=== PATIENT | male | born 1975 | race Two or more races ===

== ENCOUNTER 2024-10-05 10:19 | Inpatient (IN) | payer MEDICAID, SELFPAY ==
[2024-10-05] VITALS (13 sets, daily range): BP systolic 134–223; BP diastolic 76–124; PULSE 82–98; RESP 14–20; TEMP 36.8–37.2; O2SAT 97–100; BMI 30.7
--- NOTE | 2024-10-05 10:55 | XR_ITS ---
Examination: AP chest single view Technique one AP portable upright chest single view Exam date and time: October 05, 2024 1102 hrs. Indications: Chest pain this morning Findings: Mild enlargement cardiac contour Mild vascular congestion. No lobar pneumonia or pulmonary edema Impression: Mild vascular congestion
--- NOTE | 2024-10-05 10:55 | EKG_ITS ---
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
--- NOTE | 2024-10-05 11:04 | PD.EDABDPN ---
ED Abdominal Pain RME/HPI General Chief Complaint: Abdominal Pain Stated complaint: Abdominal pain, dizziness, and feet swelling Time seen by provider: 10/05/24 10:35 Arrival date/time: 10/05/24 10:19 RME / HPI RME / HPI narrative: 49 year old male with history of hypertension, diabetes, and gastritis presents to the ED for evaluation of abdominal pain x4 days. He describes the pain as a constant, aching sensation located primarily to the epigastric region, rated 9/10 in severity. Associated with nausea, vomiting, and decreased appetite. He reports that the symptoms worsen with oral intake, including both food and water. He has attempted OTC medications without relief. Patient additionally complains of dizziness, mild chest pain, and bilateral lower extremity swelling. He denies fever, chills, or sweating. Denies cough, shortness of breath. Denies diarrhea, constipation. Denies dysuria, urinary frequency and urgency. Related Data Allergies Allergy/AdvReac Type Severity Reaction Status Date / Time No Known Allergies Allergy Verified 10/05/24 10:23 Review of Systems Review of Systems Narrative Review of Systems: GEN: No fever, no chills, no weight loss, +dizzy EYES: No discharge, no visual changes, no pain HEENT: No ear pain, no congestion, no sore throat PULM: No shortness of breath, no cough, no congestion CV: + chest pain, no dyspnea on exertion, no palpitations GI: +nausea, +vomiting, +decreased appetite, no diarrhea, +pain, no constipation : No frequency, no urgency, no dysuria MUSC/SKEL: No joint pain, no back pain SKIN: No rash NEURO: No weakness, no headache Past Medical History Social History SMOKING STATUS: Never smoker ED Exam Narrative Physical exam: GENERAL APPEARANCE: alert and oriented x 4, well-developed, well-nourished, grimacing HEENT: Normocephalic, atraumatic; pupils equal, round, reactive to light; EOMI; mucous membranes pink, moist; oropharynx clear NECK: Supple LUNGS: CTABL; no wheezes, no rales, no rhonchi HEART: Regular rate, regular rhythm; normal S1, S2; no murmurs ABDOMEN: non distended; normal BS; soft, no tenderness, no guarding, no rebound; no masses, no organomegaly, no hernia BACK: no CVA tenderness EXTREMITIES: atraumatic; trace pitting edema BLE NEUROLOGIC: awake; alert and oriented x4; cranial nerves II-XII grossly intact; no focal sensory or motor deficits PSYCHIATRIC: appropriate mood and affect SKIN: warm, dry, normal color; no rashes Course Quality Measures none Orders Category Date Time Status Bedside Blood Glucose Q1HR Care 10/05/24 11:02 Active Plumbing And Heating Mechanic NOW Care 10/05/24 10:55 Active EKG (ED ONLY) *Do not use* NOW Care 10/05/24 10:55 Completed Strict Intake and Output Q1H Care 10/05/24 15:15 Ordered Strict Intake and Output Q1H Care 10/05/24 16:15 Ordered Strict Intake and Output Q1H Care 10/05/24 17:15 Ordered Strict Intake and Output Q1H Care 10/05/24 18:15 Ordered Strict Intake and Output Q1H Care 10/05/24 19:15 Ordered Strict Intake and Output Q1H Care 10/05/24 20:15 Ordered Strict Intake and Output Q1H Care 10/05/24 21:15 Ordered Strict Intake and Output Q1H Care 10/05/24 22:15 Ordered Strict Intake and Output Q1H Care 10/05/24 23:[address] abdomen pelvis wo con Stat Exams 10/05/24 15:03 Completed EKG (ED Only) Stat Exams 10/05/24 10:55 Draft XR chest 1V portable Stat Exams 10/05/24 10:55 Completed ABG [Arterial Blood Gas] Stat Lab 10/05/24 12:16 Completed B-Type Natriuretic Peptide Stat Lab 10/05/24 11:00 Completed Beta Hydroxybutyrate Stat Lab 10/05/24 11:00 Completed Blood Culture (Lab) Stat Lab 10/05/24 11:45 Received CBC Stat Lab 10/05/24 11:30 Completed Comprehensive Metabolic Panel Stat Lab 10/05/24 11:00 Completed Lactate (Lactic Acid) Stat Lab 10/05/24 11:00 Completed Lipase Stat Lab 10/05/24 11:00 Completed Magnesium Stat Lab 10/05/24 11:00 Completed Partial Thromboplastin Time Stat Lab 10/05/24 11:00 Completed Procalcitonin Stat Lab 10/05/24 11:00 Completed Prothrombin Time with INR Stat Lab 10/05/24 11:00 Completed Troponin I Stat Lab 10/05/24 11:00 Completed Urinalysis Stat Lab 10/05/24 11:01 Ordered Urine Culture Stat Lab 10/05/24 11:01 Ordered Aspirin Chew Med 10/05/24 12:14 Discontinued 324 mg PO X1 ONE Labetalol IV [Trandate IV] Med 10/05/24 10:55 Discontinued 20 mg IVP X1 ONE Nicardipine/Ns 20Mg Ivpb [Cardene Ivpb] Med 10/05/24 14:02 Discontinued 20 mg in 200 ml IV 5 mg/hr Nitroglycerin Oint 2% [Nitro-paste Oint 2%] Med 10/05/24 12:14 Discontinued 1 inch TOP X1 ONE Ondansetron Inj [Zofran Inj] Med 10/05/24 11:01 Discontinued 4 mg IVP X1 ONE Sodium Chloride 0.9% 1000 ml [Ns] 1,000 ml Med 10/05/24 11:31 Discontinued IV 999 mls/hr Sodium Chloride 0.9% 1000 ml [Ns] 1,000 ml Med 10/05/24 15:01 Discontinued IV 999 mls/hr amLODIPine BESYLATE [Norvasc] Med 10/05/24 14:42 Discontinued 10 mg PO X1 ONE carVEDILOL [Coreg] Med 10/05/24 14:41 Discontinued 12.5 mg PO X1 ONE hydrALAZINE INJ [Apresoline Inj] Med 10/05/24 14:41 Discontinued 10 mg IVP X1 ONE hydrALAZINE INJ [Apresoline Inj] Med 10/05/24 16:17 Discontinued 10 mg IVP X1 ONE Vital Signs Vital signs: Vital Signs Temperature 98.7 F 10/05/24 10:47 Pulse Rate 98 10/05/24 10:47 Respiratory Rate 20 10/05/24 10:47 Blood Pressure 219/122 H 10/05/24 10:47 Pulse Oximetry (%) 100 10/05/24 10:47 Oxygen Delivery Method Room Air 10/05/24 10:47 Pulse ox is 100% on room air which is adequate. Abdominal Pain MDM MDM Narrative MDM Narrative:: I, Haley Dumont, am scribing for and in the presence of Dr. Sánchez. 1433: I spoke with internet architect Dr. Beltran as noted below. Patients blood pressure is 211/114. Will order dose of Hydralazine and Coreg. 1600: Blood pressure 187/101. Pt has received Hydralazine, Coreg, and Amlodipine. 1630: Blood pressure 158/91. Patient data External records reviewed:: None Clinical information provided by:: patient Social determinants that could affect healthcare access:: none Patient has the following chronic illnesses:: hypertension, diabetes, and gastritis How is presenting disease/condition affected by chronic disease/condition?: exacerbated by Evaluation data The following diagnostics were reviewed and interpreted by me:: lab results, radiology exam(s) and EKG tracing(s) (EKG @ 11:05 AM. Sinus rhythm, rate 96, no STEMI. ) Lab and/or radiology exams considered but not ordered:: None Interpretation Summary: Ordering Physician: Alma Sánchez MD Date of Service: 10/05/24 Procedure(s): XR chest 1V portable Accession Number(s): [id number] cc: Michael Hernandez MD; Alma Sánchez MD~ Examination: AP chest single view Technique one AP portable upright chest single view Exam date and time: October 05, 2024 1102 hrs. Indications: Chest pain this morning Findings: Mild enlargement cardiac contour Mild vascular congestion. No lobar pneumonia or pulmonary edema Impression: Mild vascular congestion Dictated By: Michael Hernandez MD Signed By: <Electronically signed by Michael Hernandez MD in OV> 10/05/24 1140 Ordering Physician: Alma Sánchez MD Date of Service: 10/05/24 Procedure(s): CT abdomen pelvis wo con Accession Number(s): [id number] cc: Michael Hernandez MD; NO PRIMARY/FAMILY,PHYSICIAN; Alma Sánchez MD~ Examination: CT abdomen and pelvis without contrast. Coronal 3-D reconstructions. Sagittal 2-D reconstructions. Date and time of exam:October 05, 2024, 1532 hrs. Indications: Abdominal pain beginning 4 days ago CTDI: vol (mGy): 6.6 DLP: (mGycm): 381 Technique: Axial images of the abdomen have been obtained, 3 mm slice thickness Intravenous contrast material has not been administered. Low dose protocols were performed. One or more of the following dose reduction techniques were used; automated exposure control, adjustment of the mA and/or KV according to patient size, use of iterative reconstruction technique. Findings: Mild to moderate enlargement cardiac contour Small pericardial effusion Cirrhosis, liver is nodular in contour with diffuse fatty infiltration No gallstones No pancreatic or adrenal mass Mild ascites No renal or ureteral calculi, no hydronephrosis Aorta normal size No bowel obstruction Normal appendix No diverticulitis Minimal thickening of urinary bladder wall Mild prostatomegaly Impression: Cirrhosis, fatty infiltration Mild ascites Normal appendix No bowel obstruction Dictated By: Michael Hernandez MD Signed By: <Electronically signed by Michael Hernandez MD in OV> 10/05/24 1603 Medications / Prescriptions Medications or Prescriptions considered but not ordered:: None Medication administrations:: Medication Administration History Acetaminophen (Acetaminophen 325 Mg Tablet) 650 mg PO Q6H PRN PRN Reason: Pain 1-3 and/or Fever >100.1 Stop: 11/04/24 16:59 Dextrose (Dextrose 50%-Water Inj 50 Ml Syringe) 25 ml IV Q15MIN PRN PRN Reason: BG 50-70 responsive npo pt Stop: 11/04/24 17:17 Dextrose (Dextrose 50%-Water Inj 50 Ml Syringe) 50 ml IV Q15MIN PRN PRN Reason: BG <50 OR BG <70 & pt unresponsive Stop: 11/04/24 17:17 Glucagon (Glucagon Inj 1 Mg Vial) 1 mg IM Q15MIN PRN PRN Reason: BG <70, and no IV access Magnesium Sulfate (Magnesium Sulfate Ivpb) 4 gm in 50 mls @ 12.5 mls/hr IV X1 ONE Stop: 10/05/24 21:04 Insulin Human Lispro (Insulin Lispro (Admelog) 1 Unit/0.01 Ml Unit) 0 unit SC Q6HR MARNI; Protocol Stop: 11/04/24 17:29 Labetalol HCl (Labetalol Inj 5 Mg/Ml Vial 20 Ml) 20 mg IVP Q2H PRN PRN Reason: BP >200/105 and HR > 70 Stop: 11/04/24 17:22 Ondansetron HCl (Ondansetron Inj 2 Mg/Ml Inj 2 Ml) 4 mg IVP Q6H PRN; Protocol PRN Reason: NAUSEA OR VOMITING Stop: 11/04/24 16:59 Oxycodone/Acetaminophen (Oxycodone/Apap 5/325 Tablet) 1 tab PO Q6H PRN PRN Reason: PAIN SCALE 4-6 (Moderate Stop: 10/10/24 16:59 Sennosides (Senna Tablet) 1 tab PO QDAY PRN; Protocol PRN Reason: constipation Stop: 11/04/24 16:59 Discontinued Medications Amlodipine Besylate (Amlodipine Besylate 5 Mg Tablet) 10 mg PO X1 ONE Stop: 10/05/24 14:43 Last Admin: 10/05/24 15:11 Dose: 10 mg Documented By: MARYJO Aspirin (Aspirin 81 Mg Chew) 324 mg PO X1 ONE Stop: 10/05/24 12:15 Last Admin: 10/05/24 13:46 Dose: 324 mg Documented By: MARYJO Carvedilol (Carvedilol 12.5 Mg Tablet) 12.5 mg PO X1 ONE Stop: 10/05/24 14:42 Last Admin: 10/05/24 15:11 Dose: 12.5 mg Documented By: MARYJO Hydralazine HCl (Hydralazine Inj 20 Mg/Ml Vial) 10 mg IVP X1 ONE Stop: 10/05/24 14:42 Last Admin: 10/05/24 15:08 Dose: 10 mg Documented By: MARYJO Hydralazine HCl (Hydralazine Inj 20 Mg/Ml Vial) 10 mg IVP X1 ONE Stop: 10/05/24 16:18 Sodium Chloride (Ns) 1,000 mls @ 999 mls/hr IV .Q1H1M ONE Stop: 10/05/24 12:31 Last Admin: 10/05/24 13:51 Dose: 999 mls/hr Documented By: MARYJO Nicardipine/Sodium Chloride (Cardene Ivpb) 20 mg in 200 mls @ 50 mls/hr IV .Q4H PRN; Protocol PRN Reason: PER PROTOCOL Stop: 11/04/24 14:01 Sodium Chloride (Ns) 1,000 mls @ 999 mls/hr IV .Q1H1M ONE Stop: 10/05/24 16:01 Labetalol HCl (Labetalol Inj 5 Mg/Ml Vial 20 Ml) 20 mg IVP X1 ONE Stop: 10/05/24 10:56 Last Admin: 10/05/24 12:00 Dose: 20 mg Documented By: APRIL Labetalol HCl (Labetalol Inj 5 Mg/Ml Vial 20 Ml) 20 mg IVP Q2H PRN PRN Reason: Systolic >200 and HR > 70 Stop: 11/04/24 17:22 Nitroglycerin (Nitroglycerin Oint 2% 1 Inch Packet) 1 inch TOP X1 ONE Stop: 10/05/24 12:15 Last Admin: 10/05/24 13:51 Dose: 1 inch Documented By: MARYJO Ondansetron HCl (Ondansetron Inj 2 Mg/Ml Inj 2 Ml) 4 mg IVP X1 ONE; Protocol Stop: 10/05/24 11:02 Last Admin: 10/05/24 11:59 Dose: 4 mg Documented By: APRIL See above Consultations Consultation(s) initiated? (list below): Yes Consultation #1 (Physician, Specialty, Details): I spoke with internet architect Dr. Beltran. Discussed patients PMHx, HPI, ED course, exam findings, labs, EKG results. Recommends starting a drip and admitting the patient to the ICU if they appear symptomatic. If the patient is clinically stable, it is appropriate to administer Amlodipine, Coreg, and Hydralazine as needed. Time: 14:33 Consultation #2 (Physician, Specialty, Details): I spoke with resident Dr. Arce working with Dr. Nowak. Discussed patients PMHx, HPI, ED course, exam findings, labs, and radiology results. The hospitalist agree to accept the patient for admission. Time: 16:18 Diagnosis Differential diagnosis abdominal pain: abdominal pain and other (gastritis, hypertensive urgency, hypertensive emergency ) Most likely diagnosis given after review of the tests above:: Hypertensive emergency Vomiting Admission Indicated Admission indicated?: indicated Admission Request Was there a request for admission?: Yes Admission Attestation Admission request attestation: Discussed case with [] from Hospitalist service regarding admission. Discussed patients ED course, exam findings, labs, and radiology results. The Hospitalist [agrees,declines] to accept the patient for admission. Disposition Plan Disposition Plan: Admit Critical Care Time Critical Care Time Critical Care Time: Yes Total Critical Care Time (min.): 45 Attestation: The high probability of sudden, clinically significant deterioration in the patient's condition required the highest level of my preparedness to intervene urgently. The services I provided to this patient were to treat and/or prevent clinically significant deterioration. Services included the following: chart data review, reviewing nursing notes and/or old charts, documentation time, cassandra consultant collaboration regarding findings and treatment options, medication orders and management, direct patient care, vital sign assessments and ordering, interpreting and reviewing diagnostic studies and lab tests. Aggregate critical care time includes only time during which I was engaged in work directly related to the patient's care, as described above, whether at bedside or elsewhere in the Emergency Department. It did not include time spent performing other reported procedures or the services of residents, students, nurses or physician assistants. Discharge Plan Plan Patient Disposition: Admit Acute Care w/in Hospital Problem List Clinical Impression: Hypertensive emergency, Vomiting
[2024-10-05 11:37] LABS: Beta Hydroxybutyrate 0.9 mmol/L (<0.6)
[2024-10-05 11:39] LABS: Basophils % (Auto) 0 % (0-2.5); Eosinophils % (Auto) 0 % (0-10); Hematocrit 27.8 % (41.0-53.0); Hemoglobin 9.8 g/dL (13.5-16.0); Immature Granulocytes % (Auto) 0 % (0-0); Immature Granulocytes Auto 0.04 Thou/mm3 (0.00-0.00); Lymphocytes # (Auto) 0.7 Thou/mm3 (1.0-4.8); Lymphocytes % (Auto) 7 % (10-50); Mean Corpuscular HGB Conc 35.3 g/dl (31.0-37.0); Mean Corpuscular Hemoglobin 29.1 pg (25.0-35.0); Mean Corpuscular Volume 83 fL (80-100); Monocytes # (Auto) 0.6 Thou/mm3 (0.0-0.8); Monocytes % (Auto) 6 % (0-12); Neutrophils # (Auto) 8.5 Thou/mm3 (1.8-7.7); Neutrophils % (Auto) 86 % (37-80); Nucleated Red Blood Cell % 0 /100 WBC (0); Platelet Count 304 Thou/mm3 (140-440); RDW Standard Deviation 39.8 fL (35.1-43.9); Red Blood Count 3.37 Miln/mm3 (4.50-5.90); White Blood Count 9.9 Thou/mm3 (3.8-10.6)
[2024-10-05] MEDS: ONDANSETRON INJ 2 MG/ML INJ 2 ML 4 MG IVP ×2 (11:59→19:30)
[2024-10-05] MEDS: LABETALOL INJ 5 MG/ML VIAL 20 ML 20 MG IVP (12:00)
[2024-10-05 12:09] LABS: Alanine Aminotransferase < 7 U/L (10-49); Albumin, Serum 3.1 gm/dL (3.5-5.0); Albumin/Globulin Ratio 1.5 (1.2-2.2); Alkaline Phosphatase 97 U/L (46-116); Anion Gap 17 (7-16); Aspartate Amino Transferase < 10 U/L (0-34); BUN/Creatinine Ratio 8 Ratio (12-20); Bilirubin,Total 0.4 mg/dL (0.3-1.2); Blood Urea Nitrogen 79 mg/dL (9-23); Calcium 7.3 mg/dL (8.3-10.6); Carbon Dioxide 16.2 mMol/L (20.0-31.0); Chloride 106 mMol/L (98-107); Creatinine (Component) 9.4 mg/dL (0.6-1.3); Estimated Creatinine Clearance 8.4 mL/min (>60); Globulin 2.1 gm/dL (2.3-3.5); Glucose 165 mg/dL (74-106); Lipase 51 U/L (12-53); Magnesium 1.8 mg/dL (1.6-2.6); Osmolality,Calculated 305 (275-295); Potassium 4.4 mMol/L (3.4-5.1); Procalcitonin 0.09 ng/ml (0.0-0.49); Sodium 139 mMol/L (136-145); Total Protein 5.2 gm/dL (5.7-8.2); eGFR 6 See Note
[2024-10-05 12:10] LABS: Troponin I 0.352 ng/mL (0.0-0.045)
[2024-10-05 12:16] LABS: B-Type Natriuretic Peptide 796 pg/mL (0-100)
[2024-10-05 12:19] LABS: Base Excess -9 (-3-3); HCO3 16 mEq/L (20-26); Inspired Oxygen, FIO2 21 %; O2 Saturation 99 % (91-98); PCO2 31 mmHg (32.0-48.0); PO2 101 mmHg (83-108); pH, Arterial 7.32 (7.35-7.45)
[2024-10-05 12:20] LABS: Allen Test Performed/OK; Puncture Site Right Radial
[2024-10-05 12:22] LABS: Prothrombin Time 10.7 Seconds (9.0-12.2)
[2024-10-05] MEDS: ASPIRIN 81 MG CHEW 324 MG PO (13:46)
[2024-10-05] MEDS: SODIUM CHLORIDE 0.9% 1000 ML 1,000 ML 999 ML IV (13:51)
[2024-10-05] MEDS: NITROGLYCERIN OINT 2% 1 INCH PACKET TOP (13:51)
--- NOTE | 2024-10-05 15:03 | XR_ITS ---
Examination: CT abdomen and pelvis without contrast. Coronal 3-D reconstructions. Sagittal 2-D reconstructions. Date and time of exam:October 05, 2024, 1532 hrs. Indications: Abdominal pain beginning 4 days ago CTDI: vol (mGy): 6.6 DLP: (mGycm): 381 Technique: Axial images of the abdomen have been obtained, 3 mm slice thickness Intravenous contrast material has not been administered. Low dose protocols were performed. One or more of the following dose reduction techniques were used; automated exposure control, adjustment of the mA and/or KV according to patient size, use of iterative reconstruction technique. Findings: Mild to moderate enlargement cardiac contour Small pericardial effusion Cirrhosis, liver is nodular in contour with diffuse fatty infiltration No gallstones No pancreatic or adrenal mass Mild ascites No renal or ureteral calculi, no hydronephrosis Aorta normal size No bowel obstruction Normal appendix No diverticulitis Minimal thickening of urinary bladder wall Mild prostatomegaly Impression: Cirrhosis, fatty infiltration Mild ascites Normal appendix No bowel obstruction
[2024-10-05] MEDS: hydrALAZINE INJ 20 MG/ML VIAL 10 MG IVP (15:08)
[2024-10-05] MEDS: carVEDILOL 12.5 MG TABLET PO (15:11)
[2024-10-05] MEDS: amLODIPine BESYLATE 5 MG TABLET 10 MG PO (15:11)
--- NOTE | 2024-10-05 17:00 | XR_ITS ---
Examination: CT brain head without contrast. 2-D sagittal coronal reconstructions Date and time of exam:October 05, 2024 at 1812 hours INDICATIONS: Hypertensive emergency with headache today CTDI: vol (mGy):53.2 DLP: (mGycm):1062 Technique: Multiple CT axial sections of the brain have been obtained, 5 mm slice thickness. Contrast has not been administered. 2-D sagittal, coronal reconstructions have been obtained Low dose protocols were performed. One or more of the following dose reduction techniques were used; automated exposure control, adjustment of the mA and/or KV according to patient size, use of iterative reconstruction technique. Findings: No significant ventricular enlargement. Intra-axial or extra-axial hemorrhage density is not seen. No mass effect or midline shift Basal cisterns are not remarkable. Fourth ventricle is midline. Cranial vault intact. Impression: Negative for acute hemorrhage, mass effect or midline shift
--- NOTE | 2024-10-05 17:02 | ECHO_ITS ---
Transthoracic Echo Report Ht (in): 62 Wt (lb): 168 Exam Location: Echo Lab Status: Emergency Bpm Developer: Ludmila Hu Indications: Procedure Performed: BP: 175 / 120 HR: 81 Technical Quality: Technically difficult study MEASUREMENTS (Male / Female) Normal Values 2D ECHO LV Diastolic Diameter PLAX 5.6 cm 4.2 - 5.9 / 3.9 - 5.3 cm LV Systolic Diameter PLAX 3.9 cm IVS Diastolic Thickness 0.8 cm 0.6 - 1.0 / 0.6 - 0.9 cm LVPW Diastolic Thickness 1.0 cm 0.6 - 1.0 / 0.6 - 0.9 cm LV Relative Wall Thickness 0.3 LVOT Diameter 1.9 cm LA Volume Index 49.0 cm?/m? 16 - 28 cm?/m? M-MODE Aortic Root Diameter MM 3.0 cm LA Systolic Diameter MM 3.4 cm LA Ao Ratio MM 1.1 AV Cusp Separation MM 2.1 cm DOPPLER AV Peak Velocity 118.0 cm/s AV Peak Gradient 5.6 mmHg AV Mean Gradient 3.0 mmHg AV Velocity Time Integral 24.0 cm LVOT Peak Velocity 102.0 cm/s LVOT Peak Gradient 4.2 mmHg LVOT Velocity Time Integral 23.0 cm LVOT Cardiac Index 2849.3 cm?/min?m? AV Area Cont Eq vti 2.7 cm? AV Area Cont Eq pk 2.5 cm? MV Area PHT 3.5 cm? MR Peak Velocity 384.0 cm/s MR Peak Gradient 59.0 mmHg Mitral E Point Velocity 50.4 cm/s Mitral A Point Velocity 75.7 cm/s Mitral E to A Ratio 0.7 LV E' Lateral Velocity 5.1 cm/s Mitral E to LV E' Lateral Ratio 9.9 LV E' Septal Velocity 5.1 cm/s Mitral E to LV E' Septal Ratio 9.9 TR Peak Velocity 254.0 cm/s TR Peak Gradient 25.8 mmHg PV Peak Velocity 93.7 cm/s PV Peak Gradient 3.5 mmHg FINDINGS Left Ventricle Normal left ventricular size, wall thickness, systolic function with no obvious regional wall motion abnormalities.there is grade I diastolic dysfunction of the left ventricle (impaired relaxation pattern). The ejection fraction is visually estimated at 50-55 %. Right Ventricle The right ventricle is normal in size and systolic function. The estimated right ventricular systolic pressure, 41 mmHg. RAP 15. Left Atrium Moderately increased left atrial volume 49 mL/m?. Right Atrium The right atrium is normal by two-dimensional imaging, color flow and Doppler imaging with no structural abnormalities, no thrombus formation present. Atrial Septum The interatrial septum appears normal with no evidence of a shunt. Aorta The aorta is normal by two-dimensional, color flow and Doppler interrogation. Mitral Valve The mitral valve is normal by two-dimensional, color flow and Doppler interrogation. Mild mitral regurgitation. Aortic Valve The aortic valve is trileaflet and normal by two-dimensional, color flow and Doppler interrogation. There is no significant aortic valve regurgitation. Tricuspid Valve The tricuspid valve is normal by two-dimensional, color flow and Doppler interrogation. There is mild tricuspid valve regurgitation. Pulmonic Valve The pulmonic valve is not well visualized. There is no significant pulmonic valve regurgitation. Vessels Dilated inferior vena cava. Pericardium There is a small pericardial effusion. CONCLUSIONS Indication: Hypertension, elevated troponins and GILLIAN. Normal LV size and function. Estimated EF 55 to 60%. Grade 1 diastolic dysfunction. Normal RV size and function. Estimated RVSP mildly elevated at 40-45 mmHg. Mild MR and TR. Mild to moderately dilated LA. Small pericardial effusion noted without any evidence of any cardiac tamponade. Dilated IVC. Stephan Beltran (Electronically Signed) Final Date: 06 October 2024 19:31
--- NOTE | 2024-10-05 17:06 | PD.RESHP ---
Documentation for date of: 10/05/24 HPI History of Present Illness Chief complaint: Abdominal discomfort, nausea History of present illness: 49-year-old male with past medical history of hypertension, gastritis, type 2 diabetes, noncompliant and does not follow-up with a primary care physician for several years presenting to the ED on 10/05 with several days of abdominal discomfort and nausea. Patient's bedside provided some history; moreover, apparently patient has not been eating well for the past week or so and has been having chills on and off. Patient does not take any home medications at this time but has been told in the past that he has kidney problems, high blood pressure and diabetes. Patient denies any sick contacts or recent travel; moreover, denies having any chest pain, palpitations but does state that he periodically gets blurry vision, headaches and dizziness. Medical history: As stated above Surgical history: Denies any surgical procedures Allergies: NKDA Medications: No prescribed medications, pending official med rec Family history: Noncontributory Social history: Patient denies any alcohol, tobacco or illicit drug use. Currently living in [place] with and currently employed unemployed. ROS: All 12 systems assessed and the patient denies unless otherwise stated in HPI In the ED, patient presented hypertensive emergency with systolic blood pressure 219 and diastolic 122, heart rate 98, respiratory 20, afebrile satting 100 on room air. Pertinent lab findings included WBC 9.9, hemoglobin 10.8 with MCV of 83, ABG showed pH of 7.32, [id number], [id number] and bicarb of 16. Patient has acute renal failure with a BUN of 79, creatinine 0.4 and anion gap of 17, lactic acid 1.0, troponin 0.252, BNP 786. Chest x-ray shows mild vascular congestion, EKG shows sinus rhythm with possible left atrial enlargement and nonspecific ST changes, CT abdomen pelvis showed cirrhosis, mild ascites. Patient will be admitted for hypertensive emergency, acute renal failure with cardiology and nephrology consulted. Exam Vital Signs Temp Pulse Resp BP Pulse Ox O2 Del Method 98.3 F 97 16 211/114 H 99 Room Air 10/05/24 14:59 10/05/24 15:11 10/05/24 14:59 10/05/24 15:11 10/05/24 14:59 10/05/24 14:59 Narrative Exam Physical Exam: GENERAL: Awake, frail-appearing, appears stated age, answering questions appropriately in Kyr[place] HEENT: NC/AT. Moist mucosa. PERRLA/EOMI. CARDIO: Heart RRR and distant, no obvious murmurs, no JVD. PULM: No coughing or visible SOB. Lungs CTA B/L. GI: Abdomen soft, diffusely tender to palpation, nondistended, borborygmi apparent SKIN/MSK/EXT: No wounds/discoloration/rashes/edema/amputations. +Pedal pulses present B/L. NEURO: Oriented x3, cranial nerves II to XII grossly intact, Moves extremities x4, no focal neurologic deficits noted Results: Labs 10/06/24 04:35 10/06/24 04:35 Labs: Short CBC 10/05/24 Range/Units 11:30 WBC 9.9 (3.8-10.6) Thou/mm3 Hgb 9.8 L (13.5-16.0) g/dL Hct 27.8 L (41.0-53.0) % Plt Count 304 (140-440) Thou/mm3 BMP 10/05/24 11:00 Sodium 139 Potassium 4.4 Chloride 106 Carbon Dioxide 16.2 L BUN 79 H Creatinine 9.4 H* Glucose 165 H Calcium 7.3 L Cardiac Enzymes 10/05/24 Range/Units 11:00 Troponin I 0.352 H* (0.0-0.045) ng/mL Liver Function 10/05/24 Range/Units 11:00 Total Bilirubin 0.4 (0.3-1.2) mg/dL AST < 10 (0-34) U/L ALT < 7 L (10-49) U/L Alkaline Phosphatase 97 (46-116) U/L Albumin 3.1 L (3.5-5.0) gm/dL ABG Interpretation ABG results: 10/05/24 12:16 ABG pH 7.32 L ABG pCO2 31 L ABG pO2 101 ABG HCO3 16 L ABG O2 Saturation 99 H ABG Base Excess -9 L Quality Measures Quality Measures none Medications Home Medications and Allergies Home Medications ?Medication ?Instructions ?Recorded ?Confirmed ?Type insulin glargine 100 unit/mL 15 unit subcut HS 10/06/24 10/06/24 History subcutaneous solution (Lantus U-100 Insulin) Allergies Allergy/AdvReac Type Severity Reaction Status Date / Time No Known Allergies Allergy Verified 10/05/24 10:23 Visit Medications Acetaminophen (Acetaminophen 325 Mg Tablet) 650 mg PO Q6H PRN PRN Reason: Pain 1-3 and/or Fever >100.1 Stop: 11/04/24 16:59 Magnesium Sulfate (Magnesium Sulfate Ivpb) 4 gm in 50 mls @ 12.5 mls/hr IV X1 ONE Stop: 10/05/24 21:04 Ondansetron HCl (Ondansetron Inj 2 Mg/Ml Inj 2 Ml) 4 mg IVP Q6H PRN; Protocol PRN Reason: NAUSEA OR VOMITING Stop: 11/04/24 16:59 Oxycodone/Acetaminophen (Oxycodone/Apap 5/325 Tablet) 1 tab PO Q6H PRN PRN Reason: PAIN SCALE 4-6 (Moderate Stop: 10/10/24 16:59 Sennosides (Senna Tablet) 1 tab PO QDAY PRN; Protocol PRN Reason: constipation Stop: 11/04/24 16:59 Discontinued Medications Amlodipine Besylate (Amlodipine Besylate 5 Mg Tablet) 10 mg PO X1 ONE Stop: 10/05/24 14:43 Last Admin: 10/05/24 15:11 Dose: 10 mg Aspirin (Aspirin 81 Mg Chew) 324 mg PO X1 ONE Stop: 10/05/24 12:15 Last Admin: 10/05/24 13:46 Dose: 324 mg Carvedilol (Carvedilol 12.5 Mg Tablet) 12.5 mg PO X1 ONE Stop: 10/05/24 14:42 Last Admin: 10/05/24 15:11 Dose: 12.5 mg Hydralazine HCl (Hydralazine Inj 20 Mg/Ml Vial) 10 mg IVP X1 ONE Stop: 10/05/24 14:42 Last Admin: 10/05/24 15:08 Dose: 10 mg Hydralazine HCl (Hydralazine Inj 20 Mg/Ml Vial) 10 mg IVP X1 ONE Stop: 10/05/24 16:18 Sodium Chloride (Ns) 1,000 mls @ 999 mls/hr IV .Q1H1M ONE Stop: 10/05/24 12:31 Last Admin: 10/05/24 13:51 Dose: 999 mls/hr Nicardipine/Sodium Chloride (Cardene Ivpb) 20 mg in 200 mls @ 50 mls/hr IV .Q4H PRN; Protocol PRN Reason: PER PROTOCOL Stop: 11/04/24 14:01 Sodium Chloride (Ns) 1,000 mls @ 999 mls/hr IV .Q1H1M ONE Stop: 10/05/24 16:01 Labetalol HCl (Labetalol Inj 5 Mg/Ml Vial 20 Ml) 20 mg IVP X1 ONE Stop: 10/05/24 10:56 Last Admin: 10/05/24 12:00 Dose: 20 mg Nitroglycerin (Nitroglycerin Oint 2% 1 Inch Packet) 1 inch TOP X1 ONE Stop: 10/05/24 12:15 Last Admin: 10/05/24 13:51 Dose: 1 inch Ondansetron HCl (Ondansetron Inj 2 Mg/Ml Inj 2 Ml) 4 mg IVP X1 ONE; Protocol Stop: 10/05/24 11:02 Last Admin: 10/05/24 11:59 Dose: 4 mg Assessment & Plan Plan 49-year-old male with past medical history of hypertension, gastritis, type 2 diabetes, noncompliant and does not follow-up with a primary care physician for several years presenting to the ED on 10/05 with several days of abdominal discomfort and nausea will be admitted for hypertensive emergency, acute renal failure with cardiology and nephrology consulted. #Hypertensive emergency #Hypertension Patient presenting with systolic blood pressure in the high 220s and diastolic in the 120s Patient has history of hypertension but does not take any prescribed medications at this time, largely noncompliant and has not follow-up PCP On examination, patient does not have any signs of neurologic dysfunction In the ED, patient given labetalol, hydralazine, aspirin, nitroglycerin, carvedilol and amlodipine Blood pressure went below 25% recommended amount in the first 6 hours, systolic 140s Plan: Permissive hypertension As needed labetalol 10 mg every 2 hours if systolic blood pressure greater than 200 and diastolic greater than 105 CT head ordered #Acute renal failure #History of chronic kidney disease #Anion gap metabolic acidosis #Starvation ketoacidosis No baseline creatinine noted, patient told in the past that he has kidney disease but has not followed up with a PCP in years Presents to the ED with acute renal failure BUN 79, creatinine 9.4 ABG shows pH 7.32, pCO2 31, pO2 101 and bicarb 16, lactic acid 1.0 Nephrology consulted, no need for emergent dialysis at this time Plan: IV fluid resuscitation with NS at 150 cc an hour Kidney ultrasound Urine electrolytes, urinalysis An amp of bicarb given Juares in, strict I's and O's Uric acid pending #Elevated troponin #Small pericardial effusion Patient denies having any active chest pain at this time Presenting to the ED with a troponin of 0.352 and BNP of 796 No noted history of heart failure in the past and denies following up with a division operations manager Chest x-ray shows mild vascular congestion EKG shows sinus rhythm with possible left atrial enlargement and nonspecific ST changes Plan: Trending troponin Cardiology consulted, appreciate recommendations Nephrology does not believe pericardial effusion is significant enough to warrant dialysis at this time Echo pending #Cirrhosis, unspecified etiology #Liver cirrhosis, with ascites #Concern for SBP No noted history of hepatitis, alcohol use, family history of liver disease, autoimmune disease process At this time etiology is unclear, possibly cryptogenic versus less likely to be hemochromatosis, Agapito's AST less than 10, ALT less than 7, alk phos 97 and T. bili of 0.4 7?points Child Class B Indication for transplant evaluation Abdominal surgery baljinder-operative mortality: 30% CT abdomen pelvis showed cirrhosis, mild ascites. Plan: Will consider IV diuretics with the patient's blood pressure more stable No need for therapeutic paracentesis at this time Will consider IV albumin IV ceftriaxone 1 g initiated Start the patient on diuretics (spironolactone) and beta-derek when appropriate Outpatient monitoring with PCP #Type 2 diabetes, [id number] Patient's been told in the past that he has diabetes, does not take any medications currently No A1c on file Presented with the fingerstick glucose of 152 Plan: Sliding scale insulin Follow-up with morning A1c #Normocytic anemia #Likely anemia of chronic disease versus iron deficiency anemia Likely secondary to PKD Plan: Follow-up on morning iron panel, ferritin and reticulocyte count Health Maintenance: Lines: PIV, Juares to be inserted Diet: Cardiac Bowel: Senna as needed GI prophylaxis: Not needed DVT prophylaxis: SCDs Dispo: Pending cardiology and nephrology recommendations regarding hypertensive emergency with acute renal failure and small pericardial effusion Code: Full Patient seen and assessed with attending Dr. She Arce, DO PGY-1 Internal Medicine - [facility] Attending Provider Attestation/Addendum I attest that I was physically present for the evaluation, physical examination, lab and imaging review of the patient with the residents. I discussed the case with the residents and agree with the findings and plans of care as documented above. Patient is a 49 years old male with past medical history of hypertension, diabetes mellitus, gastritis who presented to the ED with complaint of abdominal pain, nausea and vomiting. Patient does not take any medication currently, was told that he has kidney problems but has not followed any service coordinator. He has not followed up with his primary care in a while as well. Patient is also not eating well for past week and has been having on and off chills. He also complains of occasional blurry vision and headache. In the ED, he was found to have very high blood pressure, 219/122. Rest of the vitals were within normal limits. On labs, he was found to have BUN/creatinine of 79/9.4, bicarbonate 16, pH 7.32, anion gap 17, troponin 0.252, BNP 786. Chest x-ray showed mild vascular congestion, EKG showed sinus rhythm without ST changes. CT abdomen/pelvis was also obtained, which shows cirrhosis and mild ascites. After examination of the patient and review of the clinical data I feel that this patient needs admission to the hospital for further treatment/evaluation of hypertensive emergency, GILLIAN on CKD versus progression of CKD, elevated troponin, anion gap metabolic acidosis, liver cirrhosis. Patient received multiple antihypertensives in the ED, blood pressure has decreased to 150s systolic. We will hold antihypertensives now as blood pressure has already dropped more than 25%. We will add labetalol as needed for systolic more than 200 and diastolic more than 105. Discussed with nephrology regarding kidney injury, agreed on starting IV hydration as patient had poor oral intake, nausea and vomiting for last few days, plans to reevaluate kidney function tomorrow to decide on need for hemodialysis. We will start the patient on IV hydration, we will obtain kidney ultrasound, urine electrolytes, uric acid. We will also add an amp of bicarb. Patient's mild elevation on troponin likely type II in setting of hypertensive emergency. Patient also noted to have small pericardial effusion on imaging, we will obtain cardiology consult and trend troponin. With abdominal pain in setting of cirrhosis, we will start IV Rocephin. Started on insulin regimen for diabetes. Patient also noted to have normocytic anemia likely secondary to CKD, we will obtain iron panel, ferritin, reticulocyte count, follow-up CBC tomorrow. Rita Nowak MD
--- NOTE | 2024-10-05 17:35 | XR_ITS ---
Examination: Retroperitoneal ultrasound, complete Technique: Multiple high resolution grayscale images of the retroperitoneum obtained, including kidneys and bladder. Exam date and time:October 05, 2024 1014 hours INDICATIONS: Hypertensive emergency today with acute renal failure FINDINGS: Right kidney 12.3 cm cortex 1.9 cm 24 mm lower pole cyst Left kidney 10.1 cm renal cortex 1.7 cm Mild bilateral renal parenchymal scar formation Contracted urinary bladder No prostatomegaly IMPRESSION: Mild bilateral renal parenchymal scar formation No hydronephrosis
--- NOTE | 2024-10-05 18:35 | PD.NEPHCONS ---
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 Mr. Cardenas is a 49-year-old male with past medical history of hypertension x 20 years, gastritis, type 2 diabetes x8 yrs, noncompliant and does not follow-up with a primary care physician for several years presenting to the ED on 10/05/2024 with several days of abdominal discomfort and nausea. Patient was vacationing in [place] to visit his sister. He is from [place]. patient has not been eating well for the past week or so and has been having chills on and off. Patient does not take any home medications at this time but has been told in the past that he has kidney problems, high blood pressure and diabetes. Patient denies any sick contacts or recent travel; moreover, denies having any chest pain, palpitations but does state that he periodically gets blurry vision, headaches and dizziness. Sister noticed that he is having some swelling in the lower extremities. Home medications apparently was on insulin but not taking. Denies any alcohol, smoking, illicit drug use. In the ED, patient presented hypertensive emergency with systolic blood pressure 219 and diastolic 122, heart rate 98, respiratory 20, afebrile satting 100 on room air. Pertinent lab findings included WBC 9.9, hemoglobin 10.8 with MCV of 83, ABG showed pH of 7.32, [id number], [id number] and bicarb of 16. Patient has acute renal failure with a BUN of 79, creatinine 9.4 and anion gap of 17, lactic acid 1.0, troponin 0.252, BNP 786. Chest x-ray shows mild vascular congestion, EKG shows sinus rhythm with possible left atrial enlargement and nonspecific ST changes, CT abdomen pelvis showed cirrhosis, mild ascites. Dr. Vincent was consulted-patient seems to have AYALA Patient was admitted for hypertensive emergency, acute renal failure and renal consultation requested for need for dialysis. cc:: cc: Rita Nowak MD Review of Systems Review of Systems Narrative Review of Systems: CONSTITUTIONAL: Patient denies any fever, chills. Complaining of fatigue HEENT: Denies any visual disturbances or hearing problems. CARDIOVASCULAR: Patient denies any chest pain, shortness of breath.complaining of swelling in the lower extremities. PULMONARY: Patient denies any shortness of breath, cough. GASTROINTESTINAL: Patient denies any abdominal pain, constipation.complaining of decreased appetite, nausea, vomiting, GENITOURINARY: Patient denies any urinary symptoms of burning or frequency or hematuria, admits form in the urine. SKIN: Denies any rash. MUSCULOSKELETAL: Denies any muscular skeletal problems of joint pains. NEUROLOGICAL: Denies any neurological problems of strokes, seizures or confusion. Denies any memory problems. PSYCHIATRIC: Denies any depression or anxiety. LYMPHATICS : No lymphadenopathy Past Medical History Past Medical History NEUROLOGIC: Positive Neurological Disorders (headaches) CARDIAC: Positive Hypercholesterolemia, Edema and Hypertension; Negative Congestive Heart Failure RESPIRATORY: Negative Chronic Obstructive Pulmonary Disease (COPD) GASTROINTESTINAL: Positive Gastrointestinal Disorders (gastritis) GENITOURINARY: Positive Renal Disease ENDOCRINE: Positive Diabetes Mellitus Type 1 and Diabetes Mellitus Type 2 Surgical History OTHER SURGICAL HX: As in the history of present illness Social History SMOKING STATUS: Never smoker Meds Home Medications and Allergies Home Medications ?Medication ?Instructions ?Recorded ?Confirmed ?Type insulin glargine 100 unit/mL 15 unit subcut HS 10/06/24 10/06/24 History subcutaneous solution (Lantus U-100 Insulin) Allergies Allergy/AdvReac Type Severity Reaction Status Date / Time No Known Allergies Allergy Verified 10/05/24 10:23 Exam Vital Signs Temp Pulse Resp BP Pulse Ox O2 Del Method 36.8 C 78 12 143/86 H 100 Room Air 10/06/24 08:00 10/06/24 08:00 10/06/24 08:00 10/06/24 08:00 10/06/24 08:00 10/06/24 08:00 Narrative Exam GENERAL APPEARANCE: Patient seems to be comfortable, adequately hydrated and nourished. Patient looks sick, facial puffiness noted HEENT: EOMI, PERRLA NECK: Neck supple, no JVD or bruit CARDIOVASCULAR: Heart regular, no murmurs LUNGS/CHEST: Chest clear to auscultation. No rales, rhonchi, wheezing ABDOMEN: Soft, nontender, nondistended. No masses. Normal bowel sounds. EXTREMITIES: 2+ edema in the lower extremity SKIN: Skin exam normal without any rashes MUSCULOSKELETAL: Musculoskeletal exam normal PSYCHIATRIC: Normal mood, affect LYMPHATICS: No lymphadenopathy noted NEUROLOGICAL : No neurological deficits Results Labs 10/06/24 04:35 10/06/24 04:35 Labs: Short CBC 10/05/24 10/06/24 Range/Units 11:30 04:35 WBC 9.9 7.1 (3.8-10.6) Thou/mm3 Hgb 9.8 L 8.0 L (13.5-16.0) g/dL Hct 27.8 L 23.0 L (41.0-53.0) % Plt Count 304 241 D (140-440) Thou/mm3 BMP 10/05/24 10/06/24 11:00 04:35 Sodium 139 142 Potassium 4.4 4.0 Chloride 106 108 H Carbon Dioxide 16.2 L 17.0 L BUN 79 H 75 H Creatinine 9.4 H* 9.1 H* Glucose 165 H 129 H Calcium 7.3 L 6.8 L* Cardiac Enzymes 10/05/24 10/05/24 10/05/24 Range/Units 11:00 17:35 22:55 Troponin I 0.352 H* 0.311 H* 0.312 H* (0.0-0.045) ng/mL 10/06/24 Range/Units 04:35 Troponin I 0.291 H* (0.0-0.045) ng/mL Liver Function 10/05/24 10/06/24 Range/Units 11:00 04:35 Total Bilirubin 0.4 0.2 L (0.3-1.2) mg/dL AST < 10 < 8 (0-34) U/L ALT < 7 L < 7 L (10-49) U/L Alkaline Phosphatase 97 76 D (46-116) U/L Albumin 3.1 L 2.5 L D (3.5-5.0) gm/dL Urine 10/05/24 Range/Units 20:07 Urine Color Lt-Yellow (Lt Yel-Yel) Urine Clarity Clear (Clear/Hazy) Urine pH 6.5 (5.0-7.0) Ur Specific [place] 1.022 (1.001-1.035) Urine Protein 3+ A (Neg - Trace) Urine Glucose (UA) 3+ A (Negative) ABG Interpretation ABG results: 10/05/24 12:16 ABG pH 7.32 L ABG pCO2 31 L ABG pO2 101 ABG HCO3 16 L ABG O2 Saturation 99 H ABG Base Excess -9 L Assessment & Plan Assessment and plan (1) GILLIAN (acute kidney injury): Status: Acute Assessment and plan: Patient with significant azotemia and CT showing mild uremic pericarditis. Suspect patient has underlying CKD stage IV now with advanced kidney disease needing dialysis. Labs showed non-anion gap metabolic acidosis. Anion gap metabolic acidosis uric acid 9.5, elevated troponin, urine protein/creatinine 15 g.. Urine anion gap 38 started gentle IV fluids-- If no improvement plan for dialysis. 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 Patient has good sized kidneys consistent with diabetic nephropathy. Uncontrolled hypertension probably related to severe uremia/azotemia. (3) Hypertensive emergency: Status: Acute Assessment and plan: Hypertensive emergency with GILLIAN, shortness of breath, gastritis, mild pericarditis IV medications have been given. Will add diuretics. (4) Uremic gastritis: Status: Acute Assessment and plan: Dr. Vincent was consulted. Gallbladder ultrasound showed questionable gallbladder pathology. (5) Diabetes: Status: Acute Assessment and plan: Accu-Cheks, sliding scale. Quite surprisingly his A1c is much better (6) Hyperlipidemia: Status: Acute Assessment and plan: Added Lipitor (7) Anemia: Status: Acute Assessment and plan: Will give iron, Procrit. Additional Assessment & Plan Additional Plan: Thank you Rita for allowing me to participate in the care of Mr. Cardenas
[2024-10-05] MEDS: Sodium Bicarb Inj 8.4% SYR 50 ML SYRINGE IV (19:31)
[2024-10-05] MEDS: cefTRIAXone/D5w 1gm IV premix 1 GM/50 ML BAG IV (19:31)
[2024-10-05] MEDS: SODIUM CHLORIDE 0.9% 1000 ML 1,000 ML 150 ML IV (19:31)
[2024-10-05 19:55] LABS: Troponin I 0.311 ng/mL (0.0-0.045)
[2024-10-05] MEDS: Magnesium Sulfate 4 GM Ivpb 4 GM/50 ML BAG IV (19:56)
[2024-10-05 20:10] LABS: Uric Acid 9.5 mg/dL (3.7-9.2)
[2024-10-05 20:33] LABS: Collection Type, Urine Clean Catch; Squamous Epithelial Cell,Urine 0 /hpf (0-5)
[2024-10-05 20:57] LABS: Bilirubin,Urine Negative (Negative); Blood,Urine 2+ (Negative); Clarity,Urine Clear (Clear/Hazy); Color,Urine Lt-Yellow (Lt Yel-Yel); Glucose, Urine 3+ (Negative); Hyaline Casts,Urine < 1 /hpf (0-1); Ketones,Urine Trace (Negative); Leukocyte Esterase,Urine Negative (Negative); Nitrite,Urine Negative (Negative); PH,Urine 6.5 (5.0-7.0); Protein,Urine 3+ (Neg - Trace); RBC,Urine 28 /hpf (0-3); Specific Gravity,Urine 1.022 (1.001-1.035); Urobilinogen,Urine Negative mg/dL (0.0-1.0); WBC,Urine 4 /hpf (0-5)
[2024-10-05 21:09] LABS: Chloride,Urine Random 33.3 mMol/L (55.0-125.0); Creatinine MALB Rnd Ur 103 mg/dL (30-125); Creatinine,Random Urine 103 mg/dL (30-125); Microalbumin Creat Ratio 369 mg/gCrea (<30); Microalbumin, Random Urine > 380 mg/L (0-300); Potassium,Urine Random 49 mMol/L (12-62); Sodium,Urine Random 22.8 mMol/L (20.0-110.0)
[2024-10-05 21:34] LABS: Protein Total, Random Urine 1570 mg/dL (1-14)
[2024-10-05 23:38] LABS: Troponin I 0.312 ng/mL (0.0-0.045)
[2024-10-06] VITALS (13 sets, daily range): BP systolic 135–193; BP diastolic 76–121; PULSE 74–92; RESP 12–16; TEMP 36.6–37.2; O2SAT 98–100; BMI 28.3
[2024-10-06] MEDS: SODIUM CHLORIDE 0.9% 1000 ML 1,000 ML 150 ML IV ×2 (03:07→09:59)
[2024-10-06 06:08] LABS: Basophils % (Auto) 0 % (0-2.5); Eosinophils # (Auto) 0.1 Thou/mm3 (0.0-0.5); Eosinophils % (Auto) 2 % (0-10); Immature Granulocytes % (Auto) 0 % (0-0); Immature Granulocytes Auto 0.03 Thou/mm3 (0.00-0.00); Immature Reticulocyte Fraction 9.2 % (2.3-13.4); Lymphocytes # (Auto) 1.2 Thou/mm3 (1.0-4.8); Lymphocytes % (Auto) 16 % (10-50); Mean Corpuscular HGB Conc 34.8 g/dl (31.0-37.0); Mean Corpuscular Hemoglobin 29.3 pg (25.0-35.0); Mean Corpuscular Volume 84 fL (80-100); Monocytes # (Auto) 0.8 Thou/mm3 (0.0-0.8); Monocytes % (Auto) 12 % (0-12); Neutrophils # (Auto) 4.9 Thou/mm3 (1.8-7.7); Neutrophils % (Auto) 70 % (37-80); Nucleated Red Blood Cell % 0 /100 WBC (0); Platelet Count 241 Thou/mm3 (140-440); RDW Standard Deviation 40.1 fL (35.1-43.9); Red Blood Count 2.73 Miln/mm3 (4.50-5.90); Reticulocyte % (Auto) 1.7 % (0.5-1.5); Reticulocyte Absolute Auto 46.1 Biln/L (25.0-75.0); Reticulocyte Hgb Content 32.8 pg (28.0-35.0); White Blood Count 7.1 Thou/mm3 (3.8-10.6)
[2024-10-06 06:28] LABS: Glucose Estimated Average 117 mg/dL (80-131); Hemoglobin A1C 5.7 % Hgb (4.8-6.0)
[2024-10-06 06:40] LABS: Ferritin 182 ng/mL (10.5-307.3); Iron 48 mcg/dL (65-175); Percent Iron Saturation 20 % (20-55); Total Iron Binding Capacity 230 mcg/dL (250-425); Unsaturated Iron Binding 182 (225-295)
[2024-10-06 07:07] LABS: Albumin, Serum 2.5 gm/dL (3.5-5.0); Albumin/Globulin Ratio 1.4 (1.2-2.2); Alkaline Phosphatase 76 U/L (46-116); Anion Gap 17 (7-16); Aspartate Amino Transferase < 8 U/L (0-34); BUN/Creatinine Ratio 8 Ratio (12-20); Bilirubin,Total 0.2 mg/dL (0.3-1.2); Blood Urea Nitrogen 75 mg/dL (9-23); Cardiac Risk Estimate 4.8 RATIO (4.0-6.7); Chloride 108 mMol/L (98-107); Cholesterol 184 mg/dL (132-200); Creatinine (Component) 9.1 mg/dL (0.6-1.3); Estimated Creatinine Clearance 8.4 mL/min (>60); Globulin 1.8 gm/dL (2.3-3.5); Glucose 129 mg/dL (74-106); HDL Cholesterol 38 mg/dL (40-60); LDL Cholesterol,Calculated 89 mg/dL (0-130); Magnesium 2.3 mg/dL (1.6-2.6); Osmolality,Calculated 307 (275-295); Phosphorous 7.2 mg/dL (2.4-5.1); Sodium 142 mMol/L (136-145); Total Protein 4.3 gm/dL (5.7-8.2); Triglycerides 284 mg/dL (30-150); Troponin I 0.291 ng/mL (0.0-0.045); eGFR 6 See Note
[2024-10-06 07:08] LABS: Alanine Aminotransferase < 7 U/L (10-49); Calcium 6.8 mg/dL (8.3-10.6)
--- NOTE | 2024-10-06 07:15 | ESPR_ITS ---
<Statement entered by Kt Saavedra MD - 10/07/24 07:26> I discussed with and supervised the regulatory affairs intern physician involved in the care of this patient. Patient assessment and plan was discussed with entire medicine team, including my attending. I agree with the assessment and plan as documented by regulatory affairs intern doctor. Patient care was discussed with my attending physician Dr.Bishwakarma Kt Saavedra, PGY-2 Documentation for date of: 10/06/24 Subjective Subjective Interval history: No acute overnight events. Seen with family at bedside. BP 134/76 this morning, HR 102. Renal function still poor, CR 9.1, BUN 75, GFR 6, 24H urine output 600 cc. Nephrology on board, planning HD tomorrow, he will be n.p.o. for permacath tomorrow. GI on board for liver cirrhosis, patient again denies alcohol use in the past. Pending full cirrhosis workup. Had substantial lower extremity exam, fluids discontinued, given LASIX 40 mg x 1. Complained of abdominal bloating, started SIMETHICONE, will follow-up KUB. Exam Vital Signs Temp Pulse Resp BP Pulse Ox O2 Del Method 98.4 F 76 16 135/76 H 98 Room Air 10/06/24 04:30 10/06/24 04:30 10/06/24 04:30 10/06/24 04:30 10/06/24 04:30 10/06/24 04:30 Narrative Exam GENERAL * Ill-appearing middle-age male, NAD HEENT * NCAT.?COURTNEY. Oral mucosa is moist. Patent Nares NECK * Supple, nontender, no thyromegaly, no meningismus, no JVD, no step offs CHEST * RRR, no m/g/r * CTAB, no w/r/r. Symmetrical chest rise. No intercostal subcostal retraction * Atraumatic, nontender, no crepitus, symmetrical expansion. ABDOMEN * Soft, flat, nontender. No guarding/rebound tenderness/masses. * Bowel sounds presents EXTREMITIES * 2+ bilateral lower extremity edema SKIN * Warm and dry, no jaundice/rashes. NEUROMUSCULAR * No lumbar or midline, no CVA, no paraspinal muscle spasm or tenderness. * Moves all 4 extremities well, with full ROM and good CSM. * BHATT x4, CN II-XII grossly intact. * No focal neurologic deficits. PSYCHIATRY * Normal mood and affect, cooperative, no SI or HI or hallucinations. Objective Labs 10/06/24 04:35 10/06/24 04:35 Labs: Laboratory Results - last 24 hr 10/05/24 10/05/24 10/05/24 11:00 11:00 11:30 WBC 9.9 RBC 3.37 L Hgb 9.8 L Hct 27.8 L MCV 83 MCH 29.1 MCHC 35.3 RDW Std Deviation 39.8 Plt Count 304 Neut % (Auto) 86 H Lymph % (Auto) 7 L [place] % (Auto) 6 Eos % (Auto) 0 Baso % (Auto) 0 Neut # (Auto) 8.5 H Lymph # (Auto) 0.7 L [place] # (Auto) 0.6 Eos # (Auto) 0.0 Baso # (Auto) 0.0 Immature Gran # (Auto) 0.04 H Absolute Nucleated RBC 0.00 Immature Gran % 0 Nucleated RBC % 0 Retic Count (auto) Absolute Retic Immature Retic Fraction Retic Hgb Content CHr PT 10.7 INR 1.0 APTT 26.0 Puncture Site ABG pH ABG pCO2 ABG pO2 ABG HCO3 ABG O2 Saturation ABG Base Excess FiO2 Sodium 139 Potassium 4.4 Chloride 106 Carbon Dioxide 16.2 L Anion Gap 17 H BUN 79 H Creatinine 9.4 H* Estim Creat Clear Calc 8.4 L eGFR 6 L* BUN/Creatinine Ratio 8 L Glucose [address] Glu mg/dL Hemoglobin A1c Calculated Osmolality 305 H Lactic Acid 1.0 Uric Acid Calcium 7.3 L Corrected Calcium 8.0 L Phosphorus Magnesium 1.8 Iron TIBC Iron Saturation Unsat Iron Binding Ferritin Total Bilirubin 0.4 AST < 10 ALT < 7 L Alkaline Phosphatase 97 Troponin I 0.352 H* B-Natriuretic Peptide 796 H* Total Protein 5.2 L Albumin 3.1 L Globulin 2.1 L Albumin/Globulin Ratio 1.5 Triglycerides Cholesterol LDL Cholesterol, Calc HDL Cholesterol Cholesterol/HDL Ratio Lipase 51 Beta-Hydroxybutyrate/Acetoacetate 0.9 H Procalcitonin 0.09 Cancelled Ur Collection Type Urine Color Urine Clarity Urine pH Ur Specific [place] Urine Protein Urine Glucose (UA) Urine Ketones Urine Blood Urine Nitrite Urine Bilirubin Urine Urobilinogen (Auto) Ur Leukocyte Esterase Urine RBC Urine WBC Ur Squamous Epith Cells Urine Bacteria Hyaline Casts Ur Random Creatinine Ur Random Microalbumin U Random Total Protein Ur Random Sodium Ur Random Potassium Ur Random Chloride U Creat (Microalbumin) Microalb/Creat Ratio 10/05/24 10/05/24 10/05/24 12:16 17:35 20:07 WBC RBC Hgb Hct MCV MCH MCHC RDW Std Deviation Plt Count Neut % (Auto) Lymph % (Auto) [place] % (Auto) Eos % (Auto) Baso % (Auto) Neut # (Auto) Lymph # (Auto) [place] # (Auto) Eos # (Auto) Baso # (Auto) Immature Gran # (Auto) Absolute Nucleated RBC Immature Gran % Nucleated RBC % Retic Count (auto) Absolute Retic Immature Retic Fraction Retic Hgb Content CHr PT INR APTT Puncture Site Right Radial ABG pH 7.32 L ABG pCO2 31 L ABG pO2 101 ABG HCO3 16 L ABG O2 Saturation 99 H ABG Base Excess -9 L FiO2 21 Sodium Potassium Chloride Carbon Dioxide Anion Gap BUN Creatinine Estim Creat Clear Calc eGFR BUN/Creatinine Ratio Glucose Estimated Ave Glu mg/dL Hemoglobin A1c Calculated Osmolality Lactic Acid Uric Acid 9.5 H Calcium Corrected Calcium Phosphorus Magnesium Iron TIBC Iron Saturation Unsat Iron Binding Ferritin Total Bilirubin AST ALT Alkaline Phosphatase Troponin I 0.311 H* B-Natriuretic Peptide Total Protein Albumin Globulin Albumin/Globulin Ratio Triglycerides Cholesterol LDL Cholesterol, Calc HDL Cholesterol Cholesterol/HDL Ratio Lipase Beta-Hydroxybutyrate/Acetoacetate Procalcitonin Ur Collection Type Clean Catch Urine Color Lt-Yellow Urine Clarity Clear Urine pH 6.5 Ur Specific [place] 1.022 Urine Protein 3+ A Urine Glucose (UA) 3+ A Urine Ketones Trace Urine Blood 2+ A Urine Nitrite Negative Urine Bilirubin Negative Urine Urobilinogen (Auto) Negative Ur Leukocyte Esterase Negative Urine RBC 28 H Urine WBC 4 Ur Squamous Epith Cells 0 Urine Bacteria None Hyaline Casts < 1 Ur Random Creatinine 103 Ur Random Microalbumin > 380 H U Random Total Protein 1570 H Ur Random Sodium 22.8 Ur Random Potassium 49 Ur Random Chloride 33.3 L U Creat (Microalbumin) 103 Microalb/Creat Ratio 369 H 10/05/24 10/06/24 22:55 04:35 WBC 7.1 RBC 2.73 L Hgb 8.0 L Hct 23.0 L MCV 84 MCH 29.3 MCHC 34.8 RDW Std Deviation 40.1 Plt Count 241 D Neut % (Auto) 70 Lymph % (Auto) 16 [place] % (Auto) 12 Eos % (Auto) 2 Baso % (Auto) 0 Neut # (Auto) 4.9 Lymph # (Auto) 1.2 [place] # (Auto) 0.8 Eos # (Auto) 0.1 Baso # (Auto) 0.0 Immature Gran # (Auto) 0.03 H Absolute Nucleated RBC 0.00 Immature Gran % 0 Nucleated RBC % 0 Retic Count (auto) 1.7 H Absolute Retic 46.1 Immature Retic Fraction 9.2 Retic Hgb Content CHr 32.8 PT INR APTT Puncture Site ABG pH ABG pCO2 ABG pO2 ABG HCO3 ABG O2 Saturation ABG Base Excess FiO2 Sodium 142 Potassium 4.0 Chloride 108 H Carbon Dioxide 17.0 L Anion Gap 17 H BUN 75 H Creatinine 9.1 H* Estim Creat Clear Calc 8.4 L eGFR 6 L* BUN/Creatinine Ratio 8 L Glucose [address] Glu mg/dL 117 Hemoglobin A1c 5.7 Calculated Osmolality 307 H Lactic Acid Uric Acid Calcium 6.8 L* Corrected Calcium 8.0 L Phosphorus 7.2 H Magnesium 2.3 Iron 48 L TIBC 230 L Iron Saturation 20 Unsat Iron Binding 182 L Ferritin 182 Total Bilirubin 0.2 L AST < 8 ALT < 7 L Alkaline Phosphatase 76 D Troponin I 0.312 H* 0.291 H* B-Natriuretic Peptide Total Protein 4.3 L Albumin 2.5 L D Globulin 1.8 L Albumin/Globulin Ratio 1.4 Triglycerides 284 H Cholesterol 184 LDL Cholesterol, Calc 89 HDL Cholesterol 38 L Cholesterol/HDL Ratio 4.8 Lipase Beta-Hydroxybutyrate/Acetoacetate Procalcitonin Ur Collection Type Urine Color Urine Clarity Urine pH Ur Specific [place] Urine Protein Urine Glucose (UA) Urine Ketones Urine Blood Urine Nitrite Urine Bilirubin Urine Urobilinogen (Auto) Ur Leukocyte Esterase Urine RBC Urine WBC Ur Squamous Epith Cells Urine Bacteria Hyaline Casts Ur Random Creatinine Ur Random Microalbumin U Random Total Protein Ur Random Sodium Ur Random Potassium Ur Random Chloride U Creat (Microalbumin) Microalb/Creat Ratio ABG Interpretation ABG results: 10/05/24 12:16 ABG pH 7.32 L ABG pCO2 31 L ABG pO2 101 ABG HCO3 16 L ABG O2 Saturation 99 H ABG Base Excess -9 L Quality Measures Quality Measures none Assessment & Plan Assessment Current Active Medications: Generic Name Dose Route Start Last Admin Trade Name Freq PRN Reason Stop Dose Admin Acetaminophen 650 mg 10/05/24 17:00 Acetaminophen 325 Mg Tablet PO 11/04/24 16:59 Q6H PRN Pain 1-3 and/or Fever >100.1 Dextrose 25 ml 10/05/24 17:18 Dextrose 50%-Water Inj 50 Ml Syringe IV 11/04/24 17:17 Q15MIN PRN BG 50-70 responsive npo pt Dextrose 50 ml 10/05/24 17:18 Dextrose 50%-Water Inj 50 Ml Syringe IV 11/04/24 17:17 Q15MIN PRN BG <50 OR BG <70 & pt unresponsive Glucagon 1 mg 10/05/24 17:18 Glucagon Inj 1 Mg Vial IM Q15MIN PRN BG <70, and no IV access Sodium Chloride 1,000 mls @ 150 mls/hr 10/05/24 17:35 10/06/24 03:07 Ns IV 11/04/24 17:34 150 mls/hr .[id number] MARNI Administration Ceftriaxone Sodium/Dextrose 1 gm in 50 mls @ 100 mls/hr 10/05/24 18:15 10/05/24 20:47 Rocephin/D5w 1gm Iv Premix IV 10/12/24 18:14 Infused QDAY MARNI Infusion Insulin Human Lispro 0 unit 10/05/24 17:30 10/06/24 05:57 Insulin Lispro (Admelog) 1 Unit/0.01 Ml Unit SC 11/04/24 17:29 Not Given Q6HR MARNI Protocol Labetalol HCl 20 mg 10/05/24 17:27 Labetalol Inj 5 Mg/Ml Vial 20 Ml IVP 11/04/24 17:22 Q2H PRN BP >200/105 and HR > 70 Ondansetron HCl 4 mg 10/05/24 17:00 10/05/24 19:30 Ondansetron Inj 2 Mg/Ml Inj 2 Ml IVP 11/04/24 16:59 4 mg Q6H PRN Administration NAUSEA OR VOMITING Protocol Oxycodone/Acetaminophen 1 tab 10/05/24 17:00 Oxycodone/Apap 5/325 Tablet PO 10/10/24 16:59 Q6H PRN PAIN SCALE 4-6 (Moderate Sennosides 1 tab 10/05/24 17:00 Senna Tablet PO 11/04/24 16:59 QDAY PRN constipation Protocol Plan 49-year-old male with PMHx of HTN, gastritis, T2DM, admitted 10/05 for abdominal discomfort and nausea, found to have hypertensive emergency. Currently being worked up for GILLIAN with CR 9.1, and liver cirrhosis. Appreciate recommendations from cardiology, GI and nephrology team. Plan summary: States he was admitted at [facility] for similar symptoms, to his knowledge, his workup was negative. Patient persistently denies alcohol and tobacco use, personal or family history of kidney or liver disease or cardiovascular. Presenting with CR 9.4, BUN 79, BNP 796, NSTEMI type 2 with peak troponin 0.352. Imaging showed small pericardial effusion, liver cirrhosis and fatty liver as well as mild ascites, mild parenchymal renal scar formation without hydronephrosis. Cardiology on board, currently pending echo. Nephrology team following, he will get PermCath tomorrow and start HD session. GI on board, pending full cirrhosis workup. GILLIAN on CKD Nephrotic range proteinuria Presenting with creatinine 9.4, BUN 79, GFR 6. Denies history of kidney disease. Initially suspected dehydration given history of vomiting, however he responded poorly to IVF, urine output remains poor, has worsening bilateral lower extremity edema. Uric acid 9.5. UA showing nephrotic range proteinuria with 3+ protein, 3+ GLUCOSE, 2+ RBCs, microalbumin greater than 380, protein 1570, MCR 369. FENA calculated at 1.4, suggest intrinsic versus prerenal. Urine sodium 22.8 and BUN to creatinine is low, less likely hepatorenal. Urine GLUCOSE elevated, normal serum GLUCOSE, tubulointerstitial disease, also may be diabetic nephropathy or longstanding untreated hypertension. ? Pending PermCath, HD session to start tomorrow ? Discontinued IVF ? Given LASIX 40 mg x 1 ? Nephrology added BUMEX 2 mg q. day ? May likely need kidney biopsy, will defer to nephrology team. Metabolic acidosis Anion gap 17, ABG pH 7.32, pCO2 31, bicarb 16. Likely AGMA (uremic), with mixed NAGMA (RTA 2 or 4), with appropriate respiratory compensation. ? Treating underlying cause as above Hypertensive emergency (stable) Admission BP 219/122, possibly chronically untreated hypertension vs. volume overload. BP remains elevated, on PRN LABETALOL and HYDRALAZINE. CT head was negative for acute pathology. ? Anticipate improvement in hemodialysis ? Continue LABETALOL and HYDRALAZINE per protocol NSTEMI, likely type II Small pericardial effusion Peak troponin 0.352. EKG sinus rhythm with possible left atrial enlargement and nonspecific ST abnormalities. CT showed small pericardial effusion. May possibly be urinary pericarditis, given elevated BUN, however he denies chest pain. ? Cardiology following, pending echocardiogram and recommendations Decompensated cirrhosis, unspecified etiology CT showed cirrhosis, fatty infiltrate with mild ascites. ALBUMIN 2.5, TB 0.2, LFTs low. Denies history of alcohol use. No signs or symptoms of of hepatic encephalopathy. ? GI bleed ? Pending full cirrhosis workup ? Continue CEFTRIAXONE SBP prophylaxis (10/05 to present) Hypocalcemia Hyperphosphatemia Corrected calcium 8.0, phosphorus 7.2. ? CALCIUM CARBONATE 600 mg q. day ? SEVELAMER 800 mg TID ? Daily labs Abdominal bloating Plan abdominal distention since morning, KUB showed stool impaction. ? Started LACTULOSE 10 mg TID ? Started SIMETHICONE PRN for bloating IDDM type II A1c 5.7, GLUCOSE relatively normal. ? INSULIN sliding scale ? Accu-Cheks Normocytic anemia, iron deficiency vs. anemia of chronic disease Hgb 9.8 > 8.0, reticulocyte elevated 1.7. Normal coag studies. Iron 48, low, TIBC 230 low, iron saturation borderline low at 20. Low suspicion for active bleed, most likely CKD with iron deficiency. ? Pending occult blood test ? Transfuse if Hgb less than 7 Health maintenance Diet: Cardiorenal GI prophylaxis: LACTULOSE, FAMOTIDINE DVT prophylaxis: SCD Antibiotics: CEFTRIAXONE CODE STATUS: Full code Disposition: Pending hemodialysis, GI and cardiology recommendations Case was discussed with attending physician and senior resident. Geovanna Craig DO PGYI Attending Provider Attestation/Addendum I attest that I was physically present for the evaluation, physical examination, lab and imaging review of the patient with the residents. I discussed the case with the residents and agree with the findings and plans of care as documented above. At bedside today, patient continued to complain of abdominal pain. Is noted to have significant edema around his bilateral lower extremity, pitting. Abdomen is soft but noted to have epigastric tenderness. Blood pressure remains in the higher side, we will continue to monitor closely. Had a long discussion with family and patient regarding his kidney status and need for hemodialysis, also explained in detail about his liver cirrhosis. Patient was never diagnosed with cirrhosis, denies alcohol use in the past. Patient also had drop in hemoglobin from 9.8-8.0 today. Discussed with GI we will obtain workup for possible causes of cirrhosis. We will also obtain occult blood, monitor his hemoglobin closely and transfuse if needed. Kidney function continues to be low, BUN/creatinine of 75/9.1 today. Initial concern was GILLIAN on CKD as patient did not have good oral intake but despite IV hydration kidney function failed to improve. Discussed with nephrology, recommended hemodialysis catheter placement for initiation of dialysis. Will keep patient n.p.o. after overnight and tunneled hemodialysis catheter with IR.. Patient appears volume overloaded today, we will start him on IV Lasix closely. Started sevelamer for hyperphosphatemia. Rita Nowak MD
[2024-10-06] MEDS: cefTRIAXone/D5w 1gm IV premix 1 GM/50 ML BAG IV (09:04)
[2024-10-06] MEDS: CALCIUM CARBONATE 600 MG TABLET PO (09:58)
[2024-10-06] MEDS: SIMETHICONE 80 MG CHEW PO (10:02)
--- NOTE | 2024-10-06 10:14 | PC.SS ---
PROFESSIONAL SYSTEM ADMINISTRATOR conducted bedside contact with the patient to conduct initial assessment and to discuss discharge planning.? Patient confirmed demographic information.? Patient is from [place], [place].? Patient visiting family upon admission to the hospital.? Patient will remain in [facility] upon discharge.? Patient is currently staying with sister, Earnest Lord .? Patient does not utilize DME to assist with ambulation.? Patient does not utilize home oxygen.? Patient describes ability to complete ADL?s independently.? Patient identified sister, Earnest Lord; as surrogate medical decision maker.? Patient is not aligned with local PCP services.? Patient receptive to obtaining appointment at [facility] upon discharge.? Patient identified [facility] as pharmacy of choice.? Plan is for the patient to return home at the time of discharge.? Family will provide transportation on behalf of the patient. ?No further discharge needs identified by the patient.? No further intervention required at this time, social and human services assistant will be available to address any further concerns.? Next of Kin: Earnest Lord D/C Plan: Home
--- NOTE | 2024-10-06 10:17 | PC.SS ---
PROBATION AGENT informed bedside nurse that pharmacy of choice is [facility]. S.S. will arrange follow up appointment at [facility] upon patient's discharge.
--- NOTE | 2024-10-06 10:37 | PD.RESPRO ---
Documentation for date of: 10/06/24 Subjective Subjective Interval history: Patient is a 49-year-old male with a past medical history of hypertension, diabetes mellitus type 2 insulin-dependent on glargine 15 units at bedtime, and past medical history of gastritis status post EGD done outside of [place]. Patient stated he is nonadherent to medication and has not taken his antihypertensive medication for over 3 months, cannot recall what he was on previously. Patient stated he was visiting from out of town his sister when he began to develop headache, nausea, and emesis over the past 2 days. Patient stated diffuse epigastric pain radiating to both sides of his abdomen. No previous history of [place]. Worsening lower extremity edema extending to below the knee. Patient denied any recent sick contacts, fevers or chills. Patient had been told previously that he had chronic kidney disease but has not followed up with any specific recommendations. Patient denied alcohol use disorder or illicit substance use disorder. Patient was unaware of cirrhosis history as noted on CTA abdomen. Pending hepatitis panel. Cardiology consulted for Troponemia. PMH: HTN Diabetes Mellitus type II (stated home glucose reading) CKD Family History unsure of past family hisotry Home Medication: Insulin-Glargine units HS Anti-hypertensive medication, can not recall which one Social History: Denied Alcohol Use Denied Illicit Drug Use Allergies: None Code Status: Full Code Exam Vital Signs Temp Pulse Resp BP Pulse Ox O2 Del Method 98.3 F 78 12 143/86 H 100 Room Air 10/06/24 08:00 10/06/24 08:00 10/06/24 08:00 10/06/24 08:00 10/06/24 08:00 10/06/24 08:00 Narrative Exam General Appearance: Alert & Oriented X3, well-nourished male who is lying in bed in no acute distress HEENT: Skull symmetrical and atraumatic. Conjunctivae pin and moist. Pupils equal, round, reactive to light and accommodation (PERRL). External ear without lesion or discharge. Straight, nares patient, mucosa pink, no discharge. Cardio: Normal Rate and Rhythm with S1 and S2 heart sounds. No murmurs or extra heart sounds auscultated. No bruits on carotid auscultation. No JVD noted, Peripheral edema noted +3 below the knee Lungs: Symmetric with good expansion. Back tenderness. Breath sounds vesicular without crackles, wheezing or rhonchi Abdomen: Diffuse Tenderness, Non-distended, Normal Reactive Bowel Sounds Neuro: Alert, cooperative, oriented to person, place, and time. Speech clear. CN grossly intact. Upper motor strength 5/5 and Lower motor strength 5/5. Sensation intact. Objective Labs 10/06/24 04:35 10/06/24 04:35 Labs: Laboratory Results - last 24 hr 10/05/24 10/05/24 10/05/24 11:00 11:00 11:30 WBC 9.9 RBC 3.37 L Hgb 9.8 L Hct 27.8 L MCV 83 MCH 29.1 MCHC 35.3 RDW Std Deviation 39.8 Plt Count 304 Neut % (Auto) 86 H Lymph % (Auto) 7 L [place] % (Auto) 6 Eos % (Auto) 0 Baso % (Auto) 0 Neut # (Auto) 8.5 H Lymph # (Auto) 0.7 L [place] # (Auto) 0.6 Eos # (Auto) 0.0 Baso # (Auto) 0.0 Immature Gran # (Auto) 0.04 H Absolute Nucleated RBC 0.00 Immature Gran % 0 Nucleated RBC % 0 Retic Count (auto) Absolute Retic Immature Retic Fraction Retic Hgb Content CHr PT 10.7 INR 1.0 APTT 26.0 Puncture Site ABG pH ABG pCO2 ABG pO2 ABG HCO3 ABG O2 Saturation ABG Base Excess FiO2 Sodium 139 Potassium 4.4 Chloride 106 Carbon Dioxide 16.2 L Anion Gap 17 H BUN 79 H Creatinine 9.4 H* Estim Creat Clear Calc 8.4 L eGFR 6 L* BUN/Creatinine Ratio 8 L Glucose [address] Glu mg/dL Hemoglobin A1c Calculated Osmolality 305 H Lactic Acid 1.0 Uric Acid Calcium 7.3 L Corrected Calcium 8.0 L Phosphorus Magnesium 1.8 Iron TIBC Iron Saturation Unsat Iron Binding Ferritin Total Bilirubin 0.4 AST < 10 ALT < 7 L Alkaline Phosphatase 97 Troponin I 0.352 H* B-Natriuretic Peptide 796 H* Total Protein 5.2 L Albumin 3.1 L Globulin 2.1 L Albumin/Globulin Ratio 1.5 Triglycerides Cholesterol LDL Cholesterol, Calc HDL Cholesterol Cholesterol/HDL Ratio Lipase 51 Beta-Hydroxybutyrate/Acetoacetate 0.9 H Procalcitonin 0.09 Cancelled Ur Collection Type Urine Color Urine Clarity Urine pH Ur Specific [place] Urine Protein Urine Glucose (UA) Urine Ketones Urine Blood Urine Nitrite Urine Bilirubin Urine Urobilinogen (Auto) Ur Leukocyte Esterase Urine RBC Urine WBC Ur Squamous Epith Cells Urine Bacteria Hyaline Casts Ur Random Creatinine Ur Random Microalbumin U Random Total Protein Ur Random Sodium Ur Random Potassium Ur Random Chloride U Creat (Microalbumin) Microalb/Creat Ratio 10/05/24 10/05/24 10/05/24 12:16 17:35 20:07 WBC RBC Hgb Hct MCV MCH MCHC RDW Std Deviation Plt Count Neut % (Auto) Lymph % (Auto) [place] % (Auto) Eos % (Auto) Baso % (Auto) Neut # (Auto) Lymph # (Auto) [place] # (Auto) Eos # (Auto) Baso # (Auto) Immature Gran # (Auto) Absolute Nucleated RBC Immature Gran % Nucleated RBC % Retic Count (auto) Absolute Retic Immature Retic Fraction Retic Hgb Content CHr PT INR APTT Puncture Site Right Radial ABG pH 7.32 L ABG pCO2 31 L ABG pO2 101 ABG HCO3 16 L ABG O2 Saturation 99 H ABG Base Excess -9 L FiO2 21 Sodium Potassium Chloride Carbon Dioxide Anion Gap BUN Creatinine Estim Creat Clear Calc eGFR BUN/Creatinine Ratio Glucose Estimated Ave Glu mg/dL Hemoglobin A1c Calculated Osmolality Lactic Acid Uric Acid 9.5 H Calcium Corrected Calcium Phosphorus Magnesium Iron TIBC Iron Saturation Unsat Iron Binding Ferritin Total Bilirubin AST ALT Alkaline Phosphatase Troponin I 0.311 H* B-Natriuretic Peptide Total Protein Albumin Globulin Albumin/Globulin Ratio Triglycerides Cholesterol LDL Cholesterol, Calc HDL Cholesterol Cholesterol/HDL Ratio Lipase Beta-Hydroxybutyrate/Acetoacetate Procalcitonin Ur Collection Type Clean Catch Urine Color Lt-Yellow Urine Clarity Clear Urine pH 6.5 Ur Specific [place] 1.022 Urine Protein 3+ A Urine Glucose (UA) 3+ A Urine Ketones Trace Urine Blood 2+ A Urine Nitrite Negative Urine Bilirubin Negative Urine Urobilinogen (Auto) Negative Ur Leukocyte Esterase Negative Urine RBC 28 H Urine WBC 4 Ur Squamous Epith Cells 0 Urine Bacteria None Hyaline Casts < 1 Ur Random Creatinine 103 Ur Random Microalbumin > 380 H U Random Total Protein 1570 H Ur Random Sodium 22.8 Ur Random Potassium 49 Ur Random Chloride 33.3 L U Creat (Microalbumin) 103 Microalb/Creat Ratio 369 H 10/05/24 10/06/24 22:55 04:35 WBC 7.1 RBC 2.73 L Hgb 8.0 L Hct 23.0 L MCV 84 MCH 29.3 MCHC 34.8 RDW Std Deviation 40.1 Plt Count 241 D Neut % (Auto) 70 Lymph % (Auto) 16 [place] % (Auto) 12 Eos % (Auto) 2 Baso % (Auto) 0 Neut # (Auto) 4.9 Lymph # (Auto) 1.2 [place] # (Auto) 0.8 Eos # (Auto) 0.1 Baso # (Auto) 0.0 Immature Gran # (Auto) 0.03 H Absolute Nucleated RBC 0.00 Immature Gran % 0 Nucleated RBC % 0 Retic Count (auto) 1.7 H Absolute Retic 46.1 Immature Retic Fraction 9.2 Retic Hgb Content CHr 32.8 PT INR APTT Puncture Site ABG pH ABG pCO2 ABG pO2 ABG HCO3 ABG O2 Saturation ABG Base Excess FiO2 Sodium 142 Potassium 4.0 Chloride 108 H Carbon Dioxide 17.0 L Anion Gap 17 H BUN 75 H Creatinine 9.1 H* Estim Creat Clear Calc 8.4 L eGFR 6 L* BUN/Creatinine Ratio 8 L Glucose [address] Glu mg/dL 117 Hemoglobin A1c 5.7 Calculated Osmolality 307 H Lactic Acid Uric Acid Calcium 6.8 L* Corrected Calcium 8.0 L Phosphorus 7.2 H Magnesium 2.3 Iron 48 L TIBC 230 L Iron Saturation 20 Unsat Iron Binding 182 L Ferritin 182 Total Bilirubin 0.2 L AST < 8 ALT < 7 L Alkaline Phosphatase 76 D Troponin I 0.312 H* 0.291 H* B-Natriuretic Peptide Total Protein 4.3 L Albumin 2.5 L D Globulin 1.8 L Albumin/Globulin Ratio 1.4 Triglycerides 284 H Cholesterol 184 LDL Cholesterol, Calc 89 HDL Cholesterol 38 L Cholesterol/HDL Ratio 4.8 Lipase Beta-Hydroxybutyrate/Acetoacetate Procalcitonin Ur Collection Type Urine Color Urine Clarity Urine pH Ur Specific [place] Urine Protein Urine Glucose (UA) Urine Ketones Urine Blood Urine Nitrite Urine Bilirubin Urine Urobilinogen (Auto) Ur Leukocyte Esterase Urine RBC Urine WBC Ur Squamous Epith Cells Urine Bacteria Hyaline Casts Ur Random Creatinine Ur Random Microalbumin U Random Total Protein Ur Random Sodium Ur Random Potassium Ur Random Chloride U Creat (Microalbumin) Microalb/Creat Ratio ABG Interpretation ABG results: 10/05/24 12:16 ABG pH 7.32 L ABG pCO2 31 L ABG pO2 101 ABG HCO3 16 L ABG O2 Saturation 99 H ABG Base Excess -9 L Quality Measures Quality Measures none Assessment & Plan Assessment Current Active Medications: Generic Name Dose Route Start Last Admin Trade Name Freq PRN Reason Stop Dose Admin Acetaminophen 650 mg 10/05/24 17:00 Acetaminophen 325 Mg Tablet PO 11/04/24 16:59 Q6H PRN Pain 1-3 and/or Fever >100.1 Calcium Carbonate 600 mg 10/06/24 09:45 10/06/24 09:58 Calcium Carbonate 600 Mg Tablet PO 11/05/24 09:44 600 mg QDAY MARNI Administration Dextrose 25 ml 10/05/24 17:18 Dextrose 50%-Water Inj 50 Ml Syringe IV 11/04/24 17:17 Q15MIN PRN BG 50-70 responsive npo pt Dextrose 50 ml 10/05/24 17:18 Dextrose 50%-Water Inj 50 Ml Syringe IV 11/04/24 17:17 Q15MIN PRN BG <50 OR BG <70 & pt unresponsive Glucagon 1 mg 10/05/24 17:18 Glucagon Inj 1 Mg Vial IM Q15MIN PRN BG <70, and no IV access Sodium Chloride 1,000 mls @ 150 mls/hr 10/05/24 17:35 10/06/24 09:59 Ns IV 11/04/24 17:34 150 mls/hr .Q6H40M MARNI Administration Ceftriaxone Sodium/Dextrose 1 gm in 50 mls @ 100 mls/hr 10/05/24 18:15 10/06/24 09:04 Rocephin/D5w 1gm Iv Premix IV 10/12/24 18:14 100 mls/hr QDAY MARNI Administration Insulin Human Lispro 0 unit 10/05/24 17:30 10/06/24 05:57 Insulin Lispro (Admelog) 1 Unit/0.01 Ml Unit SC 11/04/24 17:29 Not Given Q6HR [facility] Protocol Labetalol HCl 20 mg 10/05/24 17:27 Labetalol Inj 5 Mg/Ml Vial 20 Ml IVP 11/04/24 17:22 Q2H PRN BP >200/105 and HR > 70 Ondansetron HCl 4 mg 10/05/24 17:00 10/05/24 19:30 Ondansetron Inj 2 Mg/Ml Inj 2 Ml IVP 11/04/24 16:59 4 mg Q6H PRN Administration NAUSEA OR VOMITING Protocol Oxycodone/Acetaminophen 1 tab 10/05/24 17:00 Oxycodone/Apap 5/325 Tablet PO 10/10/24 16:59 Q6H PRN PAIN SCALE 4-6 (Moderate Sennosides 1 tab 10/05/24 17:00 Senna Tablet PO 11/04/24 16:59 QDAY PRN constipation Protocol Sevelamer Carbonate 800 mg 10/06/24 12:00 Sevelamer Carbonate 800 Mg Tablet PO 11/05/24 11:59 TIDWM MARNI Simethicone 80 mg 10/06/24 09:43 Simethicone 80 Mg Chew PO 11/05/24 09:42 QID PRN GAS Plan Patient is a 49-year-old male with a past medical history of hypertension, diabetes mellitus type 2 insulin-dependent on glargine 15 units at bedtime, and past medical history of gastritis patient was admitted for hypertensive emergency and acute renal failure. #Troponemia On admission epigastric pain radiating towards right and left upper quadrant with shortness of breath. Troponin levels down trended from 0.312 to 0.291. EKG no ST elevation noted. NSTEMI type II in the setting of end state renal disease vs Less likely secondary to [place] as troponin within normal limits vs versus CHF given pulmonary vascular congestion, mild enlargement of cardiac contour w/elevated BNP, and worsening lower pedal edema Diagnostics: Echo (10/05/2024): Estimated EF 55 to 60%. Grade 1 diastolic dysfunction. Normal RV size and function. Estimated RVSP mildly elevated at 40-45 mmHg. Mild MR and TR. Mild to moderately dilated LA.Small pericardial effusion noted without any evidence of any cardiac tamponade. Dilated IVC. Chest x-ray Mild enlargement cardiac contour, Mild vascular congestion; CT abdomen/Pelvis: Mild to moderate enlargement cardiac contour and Small pericardial effusion. Troponin: 0.352, 0.311, 0.312, 0.291, BNP 796 Plan -Lasix 40 mg IV X 1 -Strict In and Out -low sodium diet -In the setting of renal failure, continue to monitor K and Magnesium -Consider follow up BNP #Small pericardial Effusion Likely in the setting of Uremia, No tamponade noted on echo. Plan -No acute intevention #Hypertension #Hypertensive Emergency, resolved. Patient has past medical hisotry of uncontrolled hypertension and non-adherent to medication. Plan: -Valsartan 160 mg PO Qday -Labetaolol IV 10 mg IVP PRN, #Hyperlipidemia Patient has past medical history of diabetes mellitus type II. Denied use of statins or history of high cholesterol. ASCVD 7.5%, high intensity recommened. AST/ALT within normal limits. Plan -Consider Atorvastatin #Acute Renal Failure #Hypochoremia #Hyperphosphatemia #Hypocalcemia Patient presented with GILLIAN on CKD, GFR of 6 and creatine level of 9.4, unknown baseline. BUN/Cr ratio of 8. Renal ultrasound noted to have Mild bilateral renal parenchymal scar formation. Given long standing history of HTN, likely contributing to CKD. CKD recent diagnosed in April 2024. Patient still produces urine. Nephrotic syndrome can not be ruled out given elevated protein in the urine vs obstructive less likely as not hydronephrosis noted on US. Diagnostics: Cr 103, Microalbumin >380, total protien 1570, Na 22.8, K 49, Chloride 33.3, Mircoalbumin/Cr ratio 369 US Renal: Mild bilateral renal parenchymal scar formation Plan -Bumex 2 mg IVP Qday -Avoid nephrotoxins -Renall dose medicaiton -Sevelamer 800 mg PO TIDWM -PTH penidng -Dialysis -Nephrology Following, Dr. Clark, appreciate recommendations #Metabolic Acidosis, Anion Gap Likely in the setting of uremia vs less likely secondary to beta-hydroxybutyrate as only 0.9 vs less likely secondary to lactic acidosis Plan -Treat underlying condition of renal failure-->dialysis #Diabetes Mellitus Type II, Insulin Dependent Past medical history of diabetes Mellitus type II, insulin dependent, initially diagnosed 8 years ago. A1c 5.7 on admission with glucose of 165. Plan -Sliding Scale -monitor Fasting Glucose #Cirrhosis w/ ascites, unknown etiology Unknown etiology of cirrhosis. Patient denied past medical history of alcohol use disorder of illicit drug use. Deneid genetic component. Denied colonoscopy. Previous EGD noted to have gastritis per patient history. Never been told that he has a past medical history of cirrhosis. Plan -EGD -Gallbladder US -CEA, AFP, Alpha anti-trypsin, JESSICA, Ceruoplasmin, copper, Mitochondrial, and Hepatitis panel pending -consider utox (none on file) #Microcytic Anemia Anemia Microcytic Anemia as patient presented with MCV 84, hgb 8.0, Hct 23.0, and MCV 84 in the setting of decreased Iron vs anemia of CKD in the setting of low EPO vs anemia of chronic inflammation Diagnostics: Iron Panel: Iron 48 (L), TIBC 230 (L), Iron saturation 20%, Unsat Iron Binding 182 (L), Ferritin 182 Hgb 8.0, Hct 23.0, MCV 84 Plan -IV Ferumoxytol -EPO X1 -Vitamin B/Folic Acid tab qday #Small bowel ileus Patient still passing gas, continue to monitor . Plan -no acute intervention Health Maintenance: Disp: Pt is currently admitted to floors for further management of Renal Failure, awaiting dialysis FEN: NPO after midnight DVT: Compression Device GI: FAmotidine Code: Full Code - The patient's plan was discussed with attending Dr. Ruby Mckeon MD PGY1 Internal Medicine
--- NOTE | 2024-10-06 11:58 | PD.IMCONS ---
HPI Data of Consult Requesting Physician: Rita Nowak MD Primary Care Provider: Physician No Primary/Family Consult Narrative Reason for consult: Pain abdomen nausea vomiting History of present illness: 49 years old male evaluated in room 260 at request of the internal medicine team for chief complaint of presented to the emergency room with severe abdominal pain in the epigastric area for 4 days nausea vomiting Patient did try over the counter medication with no help Patient does not drink any alcohol CT scan of the abdomen pelvis without contrast on 10/05/2024 showed cirrhotic liver disease with fatty liver and very mild ascites Renal ultrasound shows scarring of the bilateral parenchyma of the kidneys but no hydronephrosis Patient is noncompliant has history of essential hypertension diabetes mellitus type 2 Initial presenting hemoglobin hematocrit 9.8 and 27.8 with a BUN/creatinine of 75 and 9.1 Hemoglobin hematocrit is gone down to 8.0 and 23.0 Platelet count is 241,000 cc:: cc: Rita Nowak MD Review of Systems Review of Systems Systems Reviewed: All systems reviewed, normal except as documented Past Medical History Surgical History OTHER SURGICAL HX: As in the history of present illness Meds Home Medications and Allergies Home Medications ?Medication ?Instructions ?Recorded ?Confirmed ?Type insulin glargine 100 unit/mL 15 unit subcut HS 10/06/24 10/06/24 History subcutaneous solution (Lantus U-100 Insulin) Allergies Allergy/AdvReac Type Severity Reaction Status Date / Time No Known Allergies Allergy Verified 10/05/24 10:23 Exam Vital Signs Temp Pulse Resp BP Pulse Ox O2 Del Method 98.3 F 78 12 143/86 H 100 Room Air 10/06/24 08:00 10/06/24 08:00 10/06/24 08:00 10/06/24 08:00 10/06/24 08:00 10/06/24 08:00 Routine Respiratory Exam Comments: Normal to auscultation Routine Abdominal Exam Comments: Soft midepigastric tenderness positive bowel sounds Results Labs 10/06/24 04:35 10/06/24 04:35 Labs: Short CBC 10/06/24 Range/Units 04:35 WBC 7.1 (3.8-10.6) Thou/mm3 Hgb 8.0 L (13.5-16.0) g/dL Hct 23.0 L (41.0-53.0) % Plt Count 241 D (140-440) Thou/mm3 BMP 10/05/24 10/06/24 11:00 04:35 Sodium 139 142 Potassium 4.4 4.0 Chloride 106 108 H Carbon Dioxide 16.2 L 17.0 L BUN 79 H 75 H Creatinine 9.4 H* 9.1 H* Glucose 165 H 129 H Calcium 7.3 L 6.8 L* Cardiac Enzymes 10/05/24 10/05/24 10/05/24 Range/Units 11:00 17:35 22:55 Troponin I 0.352 H* 0.311 H* 0.312 H* (0.0-0.045) ng/mL 10/06/24 Range/Units 04:35 Troponin I 0.291 H* (0.0-0.045) ng/mL Liver Function 10/05/24 10/06/24 Range/Units 11:00 04:35 Total Bilirubin 0.4 0.2 L (0.3-1.2) mg/dL AST < 10 < 8 (0-34) U/L ALT < 7 L < 7 L (10-49) U/L Alkaline Phosphatase 97 76 D (46-116) U/L Albumin 3.1 L 2.5 L D (3.5-5.0) gm/dL Urine 10/05/24 Range/Units 20:07 Urine Color Lt-Yellow (Lt Yel-Yel) Urine Clarity Clear (Clear/Hazy) Urine pH 6.5 (5.0-7.0) Ur Specific [place] 1.022 (1.001-1.035) Urine Protein 3+ A (Neg - Trace) Urine Glucose (UA) 3+ A (Negative) ABG Interpretation ABG results: 10/05/24 12:16 ABG pH 7.32 L ABG pCO2 31 L ABG pO2 101 ABG HCO3 16 L ABG O2 Saturation 99 H ABG Base Excess -9 L Assessment and Plan Additional Assessment & Plan Additional Plan: # Nausea vomiting epigastric pain could be related to patient's uremic syndrome however GI causes Needs to be ruled out Plan Gallbladder ultrasound # Patient does have normal liver function test and his cirrhosis is well compensated I will order a complete workup for the chronic active hepatitis Can follow the patient along We will consider doing an upper endoscopy if the symptoms of abdominal pain nausea vomiting continues Other medical problems include # GILLIAN on CKD # IDDM # Essential hypertension Thank you very much for the opportunity to participate in the care of this patient
[2024-10-06] MEDS: INSULIN LISPRO (AdmeLOG) 1 UNIT/0.01 ML UNIT SC (12:15)
[2024-10-06] MEDS: SEVELAMER CARBONATE 800 MG TABLET PO ×2 (12:15→17:15)
--- NOTE | 2024-10-06 12:44 | XR_ITS ---
Examination: Abdomen sonogram, Limited Date and time of exam: October 06, 2024 1522 hours INDICATIONS: Epigastric pain beginning 6 months ago Technique: Real-time mckeon scale transabdominal sonographic images of the upper abdomen obtained. Findings: Negative for gallstones Gallbladder wall is 0.8 cm with fluid around the gallbladder, however the patient has ascites Common bile duct 0.4 cm Pancreatic head 2.6 cm Liver 16.6 cm fatty infiltration IMPRESSION: Negative for gallstones Gallbladder wall is 0.8 cm with fluid around the gallbladder wall, however, the patient has ascites, clinical correlation advised Consider HIDA scan follow-up as clinically warranted
[2024-10-06] MEDS: FUROSEMIDE INJ 10 MG/ML 4ML VIAL 40 MG IVP (13:13)
--- NOTE | 2024-10-06 13:20 | PC.NURSE ---
Notified Dr. Craig in regards to pt bp 175/102 when giving lasix. Ok to give.
--- NOTE | 2024-10-06 13:25 | XR_ITS ---
Examination: Abdomen AP single view Technique: AP portable supine abdomen, single view Exam date and time: October 06, 2024 1330 hours INDICATIONS: Hypertensive emergency with abdominal distention today. FINDINGS: Mild air and stool throughout the colon A few loops of air distended small bowel No free air IMPRESSION: Mild small bowel ileus
[2024-10-06] MEDS: FAMOTIDINE 20 MG TABLET 10 MG PO (14:46)
[2024-10-06] MEDS: LACTULOSE SYRUP 20 GM/30 ML UDC 10 GM PO ×2 (14:46→21:31)
[2024-10-06] MEDS: LABETALOL INJ 5 MG/ML VIAL 20 ML 10 MG IVP (17:06)
--- NOTE | 2024-10-06 17:29 | ESPR_ITS ---
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 Mr. Cardenas is a 49-year-old male with past medical history of hypertension x 20 years, gastritis, type 2 diabetes x8 yrs, noncompliant and does not follow-up with a primary care physician for several years presenting to the ED on 10/05/2024 with several days of abdominal discomfort and nausea. Patient was vacationing in [place] to visit his sister. He is from [place]. patient has not been eating well for the past week or so and has been having chills on and off. Patient does not take any home medications at this time but has been told in the past that he has kidney problems, high blood pressure and diabetes. Patient denies any sick contacts or recent travel; moreover, denies having any chest pain, palpitations but does state that he periodically gets blurry vision, headaches and dizziness. Sister noticed that he is having some swelling in the lower extremities. Home medications apparently was on insulin but not taking. Denies any alcohol, smoking, illicit drug use. In the ED, patient presented hypertensive emergency with systolic blood pressure 219 and diastolic 122, heart rate 98, respiratory 20, afebrile satting 100 on room air. Pertinent lab findings included WBC 9.9, hemoglobin 10.8 with MCV of 83, ABG showed pH of 7.32, [id number], [id number] and bicarb of 16. Patient has acute renal failure with a BUN of 79, creatinine 9.4 and anion gap of 17, lactic acid 1.0, troponin 0.252, BNP 786. Chest x-ray shows mild vascular congestion, EKG shows sinus rhythm with possible left atrial enlargement and nonspecific ST changes, CT abdomen pelvis showed cirrhosis, mild ascites. Dr. Vincent was consulted-patient seems to have AYALA Patient was admitted for hypertensive emergency, acute renal failure and renal consultation requested for need for dialysis. 10/06/2024 Katalina telemonitor is a green house manager. Sister Radha at bedside. Labs/medications reviewed. Blood pressure 190/121-on labetalol IV. Blood sugar 138. Hemoglobin 8.0, platelets 241. Sodium 142, potassium 4, chloride 108, bicarbonate 17, anion gap 17, BUN 75, creatinine 9.1, glucose 129, uric acid 9.5, calcium 8, phosphorus 7.2, ferritin 182, iron saturation 20, LFTs normal, troponin 0.2, albumin 2.5, triglycerides 284, LDL 89, urinalysis significant proteinuria. Urine protein/creatinine 15.5 g. Urine anion gap 35. Had a long conversation with the patient and sister that despite medical management he did not improve his kidney function. He will need dialysis. No role for biopsy due to his underlying longstanding poorly controlled hypertension and diabetes for years. Patient and sister had several questions. More than 45 minutes were spent and finally they agreed for dialysis. Will plan for dialysis in a.m. Review of Systems Review of Systems Narrative Review of Systems: CONSTITUTIONAL: Patient denies any fever, chills. Complaining of fatigue HEENT: Denies any visual disturbances or hearing problems. CARDIOVASCULAR: Patient denies any chest pain, shortness of breath.complaining of swelling in the lower extremities. PULMONARY: Patient denies any shortness of breath, cough. GASTROINTESTINAL: Patient denies any abdominal pain, constipation.complaining of decreased appetite, nausea, vomiting, GENITOURINARY: Patient denies any urinary symptoms of burning or frequency or hematuria, admits form in the urine. SKIN: Denies any rash. MUSCULOSKELETAL: Denies any muscular skeletal problems of joint pains. NEUROLOGICAL: Denies any neurological problems of strokes, seizures or confusion. Denies any memory problems. PSYCHIATRIC: Denies any depression or anxiety. LYMPHATICS : No lymphadenopathy Exam Vital Signs Temp Pulse Resp BP Pulse Ox O2 Del Method 36.7 C 78 15 190/121 H 99 Room Air 10/06/24 16:00 10/06/24 17:06 10/06/24 16:00 10/06/24 17:10/06/24 16:00 10/06/24 16:00 Narrative Exam GENERAL APPEARANCE: Patient seems to be comfortable, adequately hydrated and nourished. Patient looks sick, facial puffiness noted HEENT: EOMI, PERRLA NECK: Neck supple, no JVD or bruit CARDIOVASCULAR: Heart regular, no murmurs LUNGS/CHEST: Chest clear to auscultation. No rales, rhonchi, wheezing ABDOMEN: Soft, nontender, nondistended. No masses. Normal bowel sounds. EXTREMITIES: 2+ edema in the lower extremity SKIN: Skin exam normal without any rashes MUSCULOSKELETAL: Musculoskeletal exam normal PSYCHIATRIC: Normal mood, affect LYMPHATICS: No lymphadenopathy noted NEUROLOGICAL : No neurological deficits Objective Labs 10/06/24 04:35 10/06/24 04:35 Labs: Laboratory Results - last 24 hr 10/05/24 10/05/24 10/05/24 17:35 20:07 22:55 WBC RBC Hgb Hct MCV MCH MCHC RDW Std Deviation Plt Count Neut % (Auto) Lymph % (Auto) Shelby % (Auto) Eos % (Auto) Baso % (Auto) Neut # (Auto) Lymph # (Auto) Shelby # (Auto) Eos # (Auto) Baso # (Auto) Immature Gran # (Auto) Absolute Nucleated RBC Immature Gran % Nucleated RBC % Retic Count (auto) Absolute Retic Immature Retic Fraction Retic Hgb Content CHr Sodium Potassium Chloride Carbon Dioxide Anion Gap BUN Creatinine Estim Creat Clear Calc eGFR BUN/Creatinine Ratio Glucose Estimated Ave Glu mg/dL Hemoglobin A1c Calculated Osmolality Uric Acid 9.5 H Calcium Corrected Calcium Phosphorus Magnesium Iron TIBC Iron Saturation Unsat Iron Binding Ferritin Total Bilirubin AST ALT Alkaline Phosphatase Troponin I 0.311 H* 0.312 H* Total Protein Albumin Globulin Albumin/Globulin Ratio Triglycerides Cholesterol LDL Cholesterol, Calc HDL Cholesterol Cholesterol/HDL Ratio Ur Collection Type Clean Catch Urine Color Lt-Yellow Urine Clarity Clear Urine pH 6.5 Ur Specific Concrete 1.022 Urine Protein 3+ A Urine Glucose (UA) 3+ A Urine Ketones Trace Urine Blood 2+ A Urine Nitrite Negative Urine Bilirubin Negative Urine Urobilinogen (Auto) Negative Ur Leukocyte Esterase Negative Urine RBC 28 H Urine WBC 4 Ur Squamous Epith Cells 0 Urine Bacteria None Hyaline Casts < 1 Ur Random Creatinine 103 Ur Random Microalbumin > 380 H U Random Total Protein 1570 H Ur Random Sodium 22.8 Ur Random Potassium 49 Ur Random Chloride 33.3 L U Creat (Microalbumin) 103 Microalb/Creat Ratio 369 H 10/06/24 04:35 WBC 7.1 RBC 2.73 L Hgb 8.0 L Hct 23.0 L MCV 84 MCH 29.3 MCHC 34.8 RDW Std Deviation 40.1 Plt Count 241 D Neut % (Auto) 70 Lymph % (Auto) 16 Shelby % (Auto) 12 Eos % (Auto) 2 Baso % (Auto) 0 Neut # (Auto) 4.9 Lymph # (Auto) 1.2 Shelby # (Auto) 0.8 Eos # (Auto) 0.1 Baso # (Auto) 0.0 Immature Gran # (Auto) 0.03 H Absolute Nucleated RBC 0.00 Immature Gran % 0 Nucleated RBC % 0 Retic Count (auto) 1.7 H Absolute Retic 46.1 Immature Retic Fraction 9.2 Retic Hgb Content CHr 32.8 Sodium 142 Potassium 4.0 Chloride 108 H Carbon Dioxide 17.0 L Anion Gap 17 H BUN 75 H Creatinine 9.1 H* Estim Creat Clear Calc 8.4 L eGFR 6 L* BUN/Creatinine Ratio 8 L Glucose [address] Glu mg/dL 117 Hemoglobin A1c 5.7 Calculated Osmolality 307 H Uric Acid Calcium 6.8 L* Corrected Calcium 8.0 L Phosphorus 7.2 H Magnesium 2.3 Iron 48 L TIBC 230 L Iron Saturation 20 Unsat Iron Binding 182 L Ferritin 182 Total Bilirubin 0.2 L AST < 8 ALT < 7 L Alkaline Phosphatase 76 D Troponin I 0.291 H* Total Protein 4.3 L Albumin 2.5 L D Globulin 1.8 L Albumin/Globulin Ratio 1.4 Triglycerides 284 H Cholesterol 184 LDL Cholesterol, Calc 89 HDL Cholesterol 38 L Cholesterol/HDL Ratio 4.8 Ur Collection Type Urine Color Urine Clarity Urine pH Ur Specific Concrete Urine Protein Urine Glucose (UA) Urine Ketones Urine Blood Urine Nitrite Urine Bilirubin Urine Urobilinogen (Auto) Ur Leukocyte Esterase Urine RBC Urine WBC Ur Squamous Epith Cells Urine Bacteria Hyaline Casts Ur Random Creatinine Ur Random Microalbumin U Random Total Protein Ur Random Sodium Ur Random Potassium Ur Random Chloride U Creat (Microalbumin) Microalb/Creat Ratio ABG Interpretation ABG results: 10/05/24 12:16 ABG pH 7.32 L ABG pCO2 31 L ABG pO2 101 ABG HCO3 16 L ABG O2 Saturation 99 H ABG Base Excess -9 L Assessment & Plan Assessment and plan (1) GILLIAN (acute kidney injury): Status: Acute Assessment and plan: Patient with significant azotemia and CT showing mild uremic pericarditis. Suspect patient has underlying CKD stage IV now with advanced kidney disease needing dialysis. Labs showed non-anion gap metabolic acidosis RTA type 2 /4). Anion gap metabolic acidosis(uremia) uric acid 9.5, elevated troponin, urine protein/creatinine 15 g.. Urine anion gap 38 Gavegentle IV fluids-- no improvement -decided to proceed with dialysis. Renal replacement therapy options given. Patient currently needs a hemodialysis. Sister and patient had several questions regarding transplant which will be worked up as an outpatient. Will add diuretics as patient seems to have significant uncontrolled hypertension and edema. 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 Patient has good sized kidneys consistent with diabetic nephropathy. Uncontrolled hypertension probably related to severe uremia/azotemia. Add binders, calcitriol pending labs (3) Hypertensive emergency: Status: Acute Assessment and plan: Hypertensive emergency with GILLIAN, shortness of breath, gastritis, mild pericarditis IV medications have been given. Will add diuretics. (4) Uremic gastritis: Status: Acute Assessment and plan: Dr. Vincent was consulted. Gallbladder ultrasound showed questionable gallbladder pathology. (5) Diabetes: Status: Acute Assessment and plan: Accu-Cheks, sliding scale. Quite surprisingly his A1c is much better (6) Hyperlipidemia: Status: Acute Assessment and plan: Added Lipitor (7) Anemia: Status: Acute Assessment and plan: Will give iron, Procrit. Additional Assessment & Plan Additional Plan: Thank you Rita for allowing me to participate in the care of Mr. Cardenas
[2024-10-06] MEDS: EPOETIN ALFA-EPBX INJ 10,000 UNIT/ML VIAL (NON-ESRD) 10000 UNIT SC (18:32)
[2024-10-06] MEDS: ferumoxytoL (NON-ESRD) 510 MG in SODIUM CHLORIDE 0.9% 100 ML 234 MG IV (18:33)
[2024-10-06] MEDS: TUBERCULIN PPD INJ 5 UNIT/0.1 ML DOSE ID (18:35)
[2024-10-06] MEDS: BUMETANIDE INJ 0.25 MG/ML VIAL 4 ML 2 MG IVP (18:36)
[2024-10-06] MEDS: VALSARTAN 80 MG TABLET 160 MG PO (18:39)
[2024-10-06] MEDS: VIT B12/Vit C/FA (Nephrovite) TABLET 1 TAB PO (18:41)
[2024-10-06] MEDS: niCARdipine 20 MG CAPSULE PO (20:07)
[2024-10-06 23:04] LABS: Parathyroid Hormone Intact 341.4 pg/ml (18.5-88.0)
[2024-10-06 23:42] LABS: Hepatitis A Antibody IgM Non Reactive (Non React); Hepatitis B Core Antibody IgM Non Reactive (Non React); Hepatitis B Surface Antigen Non Reactive (Non React); Hepatitis C Antibody Non Reactive (Non React)
[2024-10-06 23:49] LABS: Hepatitis A Antibody IgM Non Reactive (Non React); Hepatitis B Core Antibody IgM Non Reactive (Non React); Hepatitis B Surface Antigen Non Reactive (Non React); Hepatitis C Antibody Non Reactive (Non React)
[2024-10-07] VITALS (27 sets, daily range): BP systolic 116–189; BP diastolic 70–102; PULSE 72–91; RESP 13–22; TEMP 36.1–37.4; O2SAT 93–100; BMI 29.6
[2024-10-07 03:41] LABS: OBS Performed By boydb; OBS QC OK? Yes; Occult Blood, Stool Positive (Negative)
[2024-10-07 05:54] LABS: Basophils % (Auto) 1 % (0-2.5); Eosinophils # (Auto) 0.2 Thou/mm3 (0.0-0.5); Eosinophils % (Auto) 4 % (0-10); Hematocrit 21.1 % (41.0-53.0); Immature Granulocytes % (Auto) 1 % (0-0); Immature Granulocytes Auto 0.03 Thou/mm3 (0.00-0.00); Lymphocytes # (Auto) 1.1 Thou/mm3 (1.0-4.8); Lymphocytes % (Auto) 19 % (10-50); Mean Corpuscular HGB Conc 36.5 g/dl (31.0-37.0); Mean Corpuscular Hemoglobin 29.6 pg (25.0-35.0); Mean Corpuscular Volume 81 fL (80-100); Monocytes # (Auto) 0.6 Thou/mm3 (0.0-0.8); Monocytes % (Auto) 10 % (0-12); Neutrophils # (Auto) 3.9 Thou/mm3 (1.8-7.7); Neutrophils % (Auto) 67 % (37-80); Nucleated Red Blood Cell % 0 /100 WBC (0); Platelet Count 228 Thou/mm3 (140-440); RDW Standard Deviation 38.6 fL (35.1-43.9); White Blood Count 5.9 Thou/mm3 (3.8-10.6)
[2024-10-07 06:00] LABS: Hemoglobin 7.7 g/dL (13.5-16.0)
[2024-10-07 06:04] LABS: Partial Thromboplastin Time 25.4 Seconds (22.0-36.0)
[2024-10-07 06:41] LABS: Alanine Aminotransferase < 7 U/L (10-49); Albumin, Serum 2.5 gm/dL (3.5-5.0); Albumin/Globulin Ratio 1.6 (1.2-2.2); Alkaline Phosphatase 74 U/L (46-116); Anion Gap 13 (7-16); Aspartate Amino Transferase < 8 U/L (0-34); BUN/Creatinine Ratio 8 Ratio (12-20); Bilirubin,Total 0.2 mg/dL (0.3-1.2); Blood Urea Nitrogen 72 mg/dL (9-23); Carbon Dioxide 17.1 mMol/L (20.0-31.0); Chloride 110 mMol/L (98-107); Estimated Creatinine Clearance 8.6 mL/min (>60); Globulin 1.6 gm/dL (2.3-3.5); Glucose 122 mg/dL (74-106); Osmolality,Calculated 301 (275-295); Phosphorous 7.1 mg/dL (2.4-5.1); Sodium 140 mMol/L (136-145); Total Protein 4.1 gm/dL (5.7-8.2); eGFR 7 See Note
[2024-10-07 06:43] LABS: Calcium (Corrected) 8.2 mg/dL (8.5-10.1)
--- NOTE | 2024-10-07 07:23 | ESPR_ITS ---
<Statement entered by Kt Saavedra MD - 10/08/24 07:24> I discussed with and supervised the pharmacist intern physician involved in the care of this patient. Patient assessment and plan was discussed with entire medicine team, including my attending. I agree with the assessment and plan as documented by pharmacist intern doctor. Patient care was discussed with my attending physician Dr. Xochitl Saavedra, PGY-2 Documentation for date of: 10/07/24 Subjective Subjective Interval history: No acute overnight events. Continued n.p.o. for PermCath today. Denies symptoms of worsening of symptoms. Had a bowel movement, abdominal distention has resolved. Afebrile, BP 160/22, HR 88. Urine output 450 cc despite aggressive diuresis. Renal function slightly better, creatinine 9.3 > 9.0. Hgb 7.7 down from 9.8 on admission, FOBT was positive, GI on board, planning for endoscopy tomorrow. Exam Vital Signs Temp Pulse Resp BP Pulse Ox O2 Del Method 98.9 F 73 13 149/81 H 100 Room Air 10/07/24 04:00 10/07/24 04:00 10/07/24 04:00 10/07/24 04:00 10/07/24 04:00 10/07/24 04:00 Narrative Exam GENERAL * Ill-appearing middle-age male, NAD HEENT * NCAT.?COURTNEY. Oral mucosa is moist. Patent Nares NECK * Supple, nontender, no thyromegaly, no meningismus, no JVD, no step offs CHEST * RRR, no m/g/r * CTAB, no w/r/r. Symmetrical chest rise. No intercostal subcostal retraction * Atraumatic, nontender, no crepitus, symmetrical expansion. ABDOMEN * Soft, flat, nontender. No guarding/rebound tenderness/masses. * Bowel sounds presents EXTREMITIES * 2+ bilateral lower extremity edema SKIN * Warm and dry, no jaundice/rashes. NEUROMUSCULAR * No lumbar or midline, no CVA, no paraspinal muscle spasm or tenderness. * Moves all 4 extremities well, with full ROM and good CSM. * BHATT x4, CN II-XII grossly intact. * No focal neurologic deficits. PSYCHIATRY * Normal mood and affect, cooperative, no SI or HI or hallucinations. Objective Labs 10/07/24 05:35 10/07/24 05:35 Labs: Laboratory Results - last 24 hr 10/05/24 10/06/24 10/07/24 17:35 12:50 00:05 WBC RBC Hgb Hct MCV MCH MCHC RDW Std Deviation Plt Count Neut % (Auto) Lymph % (Auto) Bibb % (Auto) Eos % (Auto) Baso % (Auto) Neut # (Auto) Lymph # (Auto) Bibb # (Auto) Eos # (Auto) Baso # (Auto) Immature Gran # (Auto) Absolute Nucleated RBC Immature Gran % Nucleated RBC % PT INR APTT Sodium Potassium Chloride Carbon Dioxide Anion Gap BUN Creatinine Estim Creat Clear Calc eGFR BUN/Creatinine Ratio Glucose Calculated Osmolality Calcium Corrected Calcium Phosphorus Magnesium Total Bilirubin AST ALT Alkaline Phosphatase Total Protein Albumin Globulin Albumin/Globulin Ratio Tumor Marker AFP 1.70 PTH Intact 341.4 H Stool Occult Blood Positive A Hepatitis A IgM Ab Non Reactive Non Reactive Hep Bs Antigen Non Reactive Non Reactive Hep B Core IgM Ab Non Reactive Non Reactive Hepatitis C Antibody Non Reactive Non Reactive 10/07/24 05:35 WBC 5.9 RBC 2.60 L Hgb 7.7 L Hct 21.1 L* MCV 81 MCH 29.6 MCHC 36.5 RDW Std Deviation 38.6 Plt Count 228 Neut % (Auto) 67 Lymph % (Auto) 19 Bibb % (Auto) 10 Eos % (Auto) 4 Baso % (Auto) 1 Neut # (Auto) 3.9 Lymph # (Auto) 1.1 Bibb # (Auto) 0.6 Eos # (Auto) 0.2 Baso # (Auto) 0.0 Immature Gran # (Auto) 0.03 H Absolute Nucleated RBC 0.00 Immature Gran % 1 H Nucleated RBC % 0 PT 11.0 INR 1.0 APTT 25.4 Sodium 140 Potassium 4.0 Chloride 110 H Carbon Dioxide 17.1 L Anion Gap 13 BUN 72 H Creatinine 9.0 H* Estim Creat Clear Calc 8.6 L eGFR 7 L* BUN/Creatinine Ratio 8 L Glucose 122 H Calculated Osmolality 301 H Calcium 7.0 L Corrected Calcium 8.2 L Phosphorus 7.1 H Magnesium 2.0 Total Bilirubin 0.2 L AST < 8 ALT < 7 L Alkaline Phosphatase 74 Total Protein 4.1 L Albumin 2.5 L Globulin 1.6 L Albumin/Globulin Ratio 1.6 Tumor Marker AFP PTH Intact Stool Occult Blood Hepatitis A IgM Ab Hep Bs Antigen Hep B Core IgM Ab Hepatitis C Antibody ABG Interpretation ABG results: 10/05/24 12:16 ABG pH 7.32 L ABG pCO2 31 L ABG pO2 101 ABG HCO3 16 L ABG O2 Saturation 99 H ABG Base Excess -9 L Quality Measures Quality Measures none Assessment & Plan Assessment Current Active Medications: Generic Name Dose Route Start Last Admin Trade Name Daja PRN Reason Stop Dose Admin Acetaminophen 650 mg 10/05/24 17:00 Acetaminophen 325 Mg Tablet PO 11/04/24 16:59 Q6H PRN Pain 1-3 and/or Fever >100.1 Bumetanide 2 mg 10/06/24 17:45 10/06/24 18:36 Bumetanide Inj 0.25 Mg/Ml Vial 4 Ml IVP 11/05/24 17:44 2 mg QDAY MARNI Administration Calcium Carbonate 600 mg 10/06/24 09:45 10/06/24 09:58 Calcium Carbonate 600 Mg Tablet PO 11/05/24 09:44 600 mg QDAY MARNI Administration Dextrose 25 ml 10/05/24 17:18 Dextrose 50%-Water Inj 50 Ml Syringe IV 11/04/24 17:17 Q15MIN PRN BG 50-70 responsive npo pt Dextrose 50 ml 10/05/24 17:18 Dextrose 50%-Water Inj 50 Ml Syringe IV 11/04/24 17:17 Q15MIN PRN BG <50 OR BG <70 & pt unresponsive Epoetin Brett 10,000 unit 10/07/24 14:00 Epoetin Brett-Epbx Inj 10,000 Unit/Ml Vial (Esrd) SC 10/07/24 14:01 X1 ONE Famotidine 10 mg 10/06/24 14:30 10/06/24 14:46 Famotidine 20 Mg Tablet PO 11/05/24 14:29 10 mg QDAY MARNI Administration Glucagon 1 mg 10/05/24 17:18 Glucagon Inj 1 Mg Vial IM Q15MIN PRN BG <70, and no IV access Ceftriaxone Sodium/Dextrose 1 gm in 50 mls @ 100 mls/hr 10/05/24 18:15 10/06/24 09:04 Rocephin/D5w 1gm Iv Premix IV 10/12/24 18:14 100 mls/hr QDAY MARNI Administration Insulin Human Lispro 0 unit 10/05/24 17:30 10/07/24 07:16 Insulin Lispro (Admelog) 1 Unit/0.01 Ml Unit SC 11/04/24 17:29 Not Given Q6HR MARNI Protocol Labetalol HCl 10 mg 10/06/24 14:34 10/06/24 17:06 Labetalol Inj 5 Mg/Ml Vial 20 Ml IVP 11/04/24 17:22 10 mg Q2H PRN Administration BP >200/105 and HR > 70 Lactulose 10 gm 10/06/24 14:00 10/07/24 05:32 Lactulose Syrup 20 Gm/30 Ml Udc PO 11/05/24 13:59 Not Given TID MARNI Protocol Nicardipine HCl 20 mg 10/06/24 21:00 10/06/24 20:07 Nicardipine 20 Mg Capsule PO 11/05/24 20:59 20 mg BID MARNI Administration Ondansetron HCl 4 mg 10/05/24 17:00 10/05/24 19:30 Ondansetron Inj 2 Mg/Ml Inj 2 Ml IVP 11/04/24 16:59 4 mg Q6H PRN Administration NAUSEA OR VOMITING Protocol Oxycodone/Acetaminophen 1 tab 10/05/24 17:00 Oxycodone/Apap 5/325 Tablet PO 10/10/24 16:59 Q6H PRN PAIN SCALE 4-6 (Moderate Sennosides 1 tab 10/05/24 17:00 Senna Tablet PO 11/04/24 16:59 QDAY PRN constipation Protocol Sevelamer Carbonate 800 mg 10/06/24 12:00 10/06/24 17:15 Sevelamer Carbonate 800 Mg Tablet PO 11/05/24 11:59 800 mg TIDWM MARNI Administration Simethicone 80 mg 10/06/24 09:43 Simethicone 80 Mg Chew PO 11/05/24 09:42 QID PRN GAS Valsartan 160 mg 10/06/24 17:45 10/06/24 18:39 Valsartan 80 Mg Tablet PO 11/05/24 17:44 160 mg QDAY MARNI Administration Vitamin B Complex/Vit C/Folic Acid 1 tab 10/06/24 17:45 10/06/24 18:41 Vit B12/Vit C/Fa (Nephrovite) Tablet PO 07/01/25 17:44 1 tab QDAY MARNI Administration Plan 49-year-old male with PMHx of HTN, gastritis, T2DM, admitted 10/05 for abdominal discomfort and nausea, found to have hypertensive emergency BP 219/122. Currently being worked up for GILLIAN with CR 9.1, and liver cirrhosis. Appreciate recommendations from cardiology, GI and nephrology team. NPO perm cath, vitals ok, 450 urine, hgb 7.7, occult+, CR 9.0 KUB small bowel ileus mild, Had large BM, feels better GILLIAN on CKD 2/2 diabetic/hypertensive nephrosclerosis Nephrotic range proteinuria Presenting with creatinine 9.4, BUN 79, GFR 6. Denies history of kidney disease. Initially suspected dehydration given history of vomiting, however he responded poorly to IVF, urine output remains poor, has worsening bilateral lower extremity edema. Uric acid 9.5. UA showing nephrotic range proteinuria with 3+ protein, 3+ GLUCOSE, 2+ RBCs, microalbumin greater than 380, protein 1570, MCR 369. FENA calculated at 1.4, suggest intrinsic versus prerenal. Urine sodium 22.8 and BUN to creatinine is low, less likely hepatorenal. Urine GLUCOSE elevated, normal serum GLUCOSE, tubulointerstitial disease, also may be diabetic nephropathy or longstanding untreated hypertension. Prior response to aggressive diuresis. Completed HD today, 2 L fluid removed. ? Completed inpatient HD ? Continue BUMEX 2 mg daily Metabolic acidosis (resolved) Anion gap 17, ABG pH 7.32, pCO2 31, bicarb 16. Likely AGMA (uremic), with mixed NAGMA (RTA 2 or 4), with appropriate respiratory compensation. ? Treating underlying cause as above Hypertensive emergency (stable) Admission BP 219/122, possibly chronically untreated hypertension vs. volume overload. BP remains elevated, on PRN LABETALOL and HYDRALAZINE. CT head was negative for acute pathology. ? Anticipate improvement in hemodialysis ? Continue NICARDIPINE 20 mg BID ? Continue VALSARTAN 160 mg daily ? Continue LABETALOL PRN if BP greater than 170 after meds NSTEMI, likely type II, demand ischemia Small pericardial effusion, likely uremic Peak troponin 0.352. EKG sinus rhythm with possible left atrial enlargement and nonspecific ST abnormalities. CT showed small pericardial effusion. May possibly be urinary pericarditis, given elevated BUN, however he denies chest pain. ECHO showed small pericardial effusion noted without any evidence of any cardiac tamponade, dilated IVC, normal LV size and function, EEF 55 to 60%, Grade 1 diastolic dysfunction, Normal RV size and function, Estimated RVSP mildly elevated at 40-45 mmHg, Mild MR and TR, Mild to moderately dilated LA. ? Small effusion will likely resolve spontaneously. ? No plan for intervention from cardiology. ? Cardiology team following. Decompensated liver cirrhosis, unspecified etiology CT showed cirrhosis, fatty infiltrate with mild ascites. ALBUMIN 2.5, TB 0.2, LFTs low. Denies history of alcohol use. No signs or symptoms of of hepatic encephalopathy. ? GI bleed ? Hep panel was negative. ? Pending full cirrhosis workup ? Continue CEFTRIAXONE SBP prophylaxis (10/05 to present) Hypocalcemia (improving) Hyperphosphatemia (improving) Corrected calcium 8.2, phosphorus 7.1. ? CALCIUM CARBONATE 600 mg q. day ? SEVELAMER 800 mg TID ? Daily labs Abdominal bloating (resolved) in setting of: Mild small bowel ileus Plan abdominal distention since morning, KUB showed mild SB ileus. ? Started LACTULOSE 10 mg TID ? Started SIMETHICONE PRN for bloating IDDM type II A1c 5.7, GLUCOSE relatively normal. ? INSULIN sliding scale ? Accu-Cheks Acute GI bleed anemia Normocytic anemia, iron deficiency vs. anemia of chronic disease Hgb 9.8 > 7.7, reticulocyte elevated 1.7, normal coags, positive FOBT. Iron 48, low, TIBC 230 low, iron saturation borderline low at 20. GI following, planning for endoscopy tomorrow 10/08/2024 ? N.p.o. after midnight ? Pending EGD on 10/08/2024 ? Transfuse if Hgb less than 7 Health maintenance Diet: Renal, n.p.o. at midnight 10/08 GI prophylaxis: LACTULOSE, FAMOTIDINE DVT prophylaxis: SCD Antibiotics: CEFTRIAXONE CODE STATUS: Full code Disposition: Pending hemodialysis, GI and cardiology recommendations Case was discussed with attending physician and senior resident. Geovanna Craig DO PGYI Attending Provider Attestation/Addendum I have discussed and was present for the essential components of the history, physical examination, diagnosis, and treatment plan with the resident. I agree with the patient's care as documented by the resident and amended herein by me. Fletcher Leung DO. Tunneled dialysis catheter placed today, nephrology consulted for hemodialysis. Patient also scheduled for EGD later today, FOBT positive. Although this document has been carefully reviewed, there may still be some phonetic and other typographical errors. These errors are purely grammatical due to imperfections in the software program and should not be construed in any way to compromise the substance of the patient's medical care during this visit.
--- NOTE | 2024-10-07 08:00 | XR_ITS ---
Ultrasound-guided needle placement right internal jugular vein Permanent tunneled dialysis catheter insertion, percutaneous Fluoroscopy AP chest, portable, single view. Date and time of procedure: October 07, 2024 0909 hours INDICATIONS: Acute renal insufficiency, need for stat and long-term dialysis Informed consent provided Technique: A timeout was completed verifying correct patient, procedure, site, positioning, and special equipment if applicable. The patient was placed in a dependent position appropriate for dialysis catheter placement based on the vein to be cannulated. The patient'sright neck was prepped and draped in sterile fashion. Maximum Sterile Barrier Technique used including cap, mask, sterile gown, sterile gloves, and sterile full body drape. If ultrasound technique used: sterile gel and sterile probe covers. Hand Hygiene performed using proper scrub, soap and water, or alcohol-based hand rub. 1% lidocaine was used to anesthetize the surrounding skin area The [employer] portable ultrasound apparatus utilized to confirm patency of the right internal blood or vein Utilizing ultrasonographic guidance successful 21-gauge needle puncture into the right internal jugular vein. Ultrasound images were recorded and stored. Vessel micropuncture was performed with 21-gauge needle. 0.18 wire guide is introduced into the vein. 0.18 wire is introduced into the vena cava under fluoroscopy. Subcutaneous tunnel formed in the upper chest. Permanent tunneled dialysis catheter placed in the subcutaneous tunnel. Dilators were introduced over the J-wire guide. Tunneled dialysis catheter is introduced through a dilator with venous sheath into the superior vena cava under fluoroscopic guidance. The catheter is sutured in place to the skin and a sterile dressing applied. Perfusion to the extremity distal to the point of catheter insertion is checked and found to be adequate Attending radiologist was present for the entire procedure Estimated blood loss2 cc. The patient tolerated the procedure well and there were no complications Impression: Successful ultrasound-guided needle placement right internal jugular vein Successful permanent tunneled dialysis catheter insertion, percutaneous Fluoroscopy 0.2 minute radiation dose 0.57 milligray 1 spot fluoroscopic chest film. AP chest performed at completion procedure demonstrates satisfactory position dialysis catheter. May use dialysis catheter.
[2024-10-07] MEDS: BUMETANIDE INJ 0.25 MG/ML VIAL 4 ML 2 MG IVP (08:48)
[2024-10-07] MEDS: VALSARTAN 80 MG TABLET 160 MG PO (08:48)
[2024-10-07] MEDS: niCARdipine 20 MG CAPSULE PO ×2 (08:49→20:24)
[2024-10-07] MEDS: cefTRIAXone/D5w 1gm IV premix 1 GM/50 ML BAG IV (08:49)
[2024-10-07] MEDS: FAMOTIDINE 20 MG TABLET 10 MG PO (08:49)
--- NOTE | 2024-10-07 09:28 | ESPR_ITS ---
Documentation for date of: 10/07/24 Subjective Subjective Interval history: Interval history: Informant Sister Radha, patient historical interpreter Katalina, chapter relations administrator. Mr. Cardenas is a 49-year-old male with past medical history of hypertension x 20 years, gastritis, type 2 diabetes x8 yrs, noncompliant and does not follow-up with a primary care physician for several years presenting to the ED on 10/05/2024 with several days of abdominal discomfort and nausea. Patient was vacationing in [place] to visit his sister. He is from [place]. patient has not been eating well for the past week or so and has been having chills on and off. Patient does not take any home medications at this time but has been told in the past that he has kidney problems, high blood pressure and diabetes. Patient denies any sick contacts or recent travel; moreover, denies having any chest pain, palpitations but does state that he periodically gets blurry vision, headaches and dizziness. Sister noticed that he is having some swelling in the lower extremities. Home medications apparently was on insulin but not taking. Denies any alcohol, smoking, illicit drug use. In the ED, patient presented hypertensive emergency with systolic blood pressure 219 and diastolic 122, heart rate 98, respiratory 20, afebrile satting 100 on room air. Pertinent lab findings included WBC 9.9, hemoglobin 10.8 with MCV of 83, ABG showed pH of 7.32, [id number], [id number] and bicarb of 16. Patient has acute renal failure with a BUN of 79, creatinine 9.4 and anion gap of 17, lactic acid 1.0, troponin 0.252, BNP 786. Chest x-ray shows mild vascular congestion, EKG shows sinus rhythm with possible left atrial enlargement and nonspecific ST changes, CT abdomen pelvis showed cirrhosis, mild ascites. Dr. Vincent was consulted-patient seems to have AYALA Patient was admitted for hypertensive emergency, acute renal failure and renal consultation requested for need for dialysis. 10/06/2024 Katalina telemonitor is a historical interpreter. Sister Radha at bedside. Labs/medications reviewed. Blood pressure 190/121-on labetalol IV. Blood sugar 138. Hemoglobin 8.0, platelets 241. Sodium 142, potassium 4, chloride 108, bicarbonate 17, anion gap 17, BUN 75, creatinine 9.1, glucose 129, uric acid 9.5, calcium 8, phosphorus 7.2, ferritin 182, iron saturation 20, LFTs normal, troponin 0.2, albumin 2.5, triglycerides 284, LDL 89, urinalysis significant proteinuria. Urine protein/creatinine 15.5 g. Urine anion gap 35. Had a long conversation with the patient and sister that despite medical management he did not improve his kidney function. He will need dialysis. No role for biopsy due to his underlying longstanding poorly controlled hypertension and diabetes for years. Patient and sister had several questions. More than 45 minutes were spent and finally they agreed for dialysis. Will plan for dialysis in a.m. 10/07/24 patient was seen at bedside, questions and concerns were answered in detail, blood pressure 149/81, scheduled for dialysis catheter placement today. Urine output 450 mL overnight, positive fluid balance 1200 mL. Plan for hemodialysis after tunneled cath. BUN 72, creatinine 9.0, EGFR 7. Sodium 140, potassium 4.0, chloride 110, bicarb 17.1. Exam Vital Signs Temp Pulse Resp BP Pulse Ox O2 Del Method 98.4 F 72 18 160/85 H 98 Room Air 10/07/24 07:55 10/07/24 08:49 10/07/24 07:55 10/07/24 08:49 10/07/24 07:55 10/07/24 07:55 Narrative Exam General: AOx3, cooperative Skin: Intact, no cyanosis, 2+ pedal edema, facial puffiness noted. HEENT: Atraumatic/normocephalic, COURTNEY, neck supple Heart: RRR, S1 and S2 without clicks or murmurs Lungs: Clear on auscultation bilaterally, no difficulty breathing Abdomen: Soft, nontender. Bowel sounds present . Vascular: Peripheral pulses palpable Neuro: No focal neurological deficits noted. Objective Labs 10/07/24 05:35 10/07/24 05:35 Labs: Laboratory Results - last 24 hr 10/05/24 10/06/24 10/07/24 17:35 12:50 00:05 WBC RBC Hgb Hct MCV MCH MCHC RDW Std Deviation Plt Count Neut % (Auto) Lymph % (Auto) Powell % (Auto) Eos % (Auto) Baso % (Auto) Neut # (Auto) Lymph # (Auto) Powell # (Auto) Eos # (Auto) Baso # (Auto) Immature Gran # (Auto) Absolute Nucleated RBC Immature Gran % Nucleated RBC % PT INR APTT Sodium Potassium Chloride Carbon Dioxide Anion Gap BUN Creatinine Estim Creat Clear Calc eGFR BUN/Creatinine Ratio Glucose Calculated Osmolality Calcium Corrected Calcium Phosphorus Magnesium Total Bilirubin AST ALT Alkaline Phosphatase Total Protein Albumin Globulin Albumin/Globulin Ratio Tumor Marker AFP 1.70 PTH Intact 341.4 H Stool Occult Blood Positive A Hepatitis A IgM Ab Non Reactive Non Reactive Hep Bs Antigen Non Reactive Non Reactive Hep B Core IgM Ab Non Reactive Non Reactive Hepatitis C Antibody Non Reactive Non Reactive 10/07/24 05:35 WBC 5.9 RBC 2.60 L Hgb 7.7 L Hct 21.1 L* MCV 81 MCH 29.6 MCHC 36.5 RDW Std Deviation 38.6 Plt Count 228 Neut % (Auto) 67 Lymph % (Auto) 19 Powell % (Auto) 10 Eos % (Auto) 4 Baso % (Auto) 1 Neut # (Auto) 3.9 Lymph # (Auto) 1.1 Powell # (Auto) 0.6 Eos # (Auto) 0.2 Baso # (Auto) 0.0 Immature Gran # (Auto) 0.03 H Absolute Nucleated RBC 0.00 Immature Gran % 1 H Nucleated RBC % 0 PT 11.0 INR 1.0 APTT 25.4 Sodium 140 Potassium 4.0 Chloride 110 H Carbon Dioxide 17.1 L Anion Gap 13 BUN 72 H Creatinine 9.0 H* Estim Creat Clear Calc 8.6 L eGFR 7 L* BUN/Creatinine Ratio 8 L Glucose 122 H Calculated Osmolality 301 H Calcium 7.0 L Corrected Calcium 8.2 L Phosphorus 7.1 H Magnesium 2.0 Total Bilirubin 0.2 L AST < 8 ALT < 7 L Alkaline Phosphatase 74 Total Protein 4.1 L Albumin 2.5 L Globulin 1.6 L Albumin/Globulin Ratio 1.6 Tumor Marker AFP PTH Intact Stool Occult Blood Hepatitis A IgM Ab Hep Bs Antigen Hep B Core IgM Ab Hepatitis C Antibody ABG Interpretation ABG results: 10/05/24 12:16 ABG pH 7.32 L ABG pCO2 31 L ABG pO2 101 ABG HCO3 16 L ABG O2 Saturation 99 H ABG Base Excess -9 L Quality Measures Quality Measures none Assessment & Plan Assessment Current Active Medications: Generic Name Dose Route Start Last Admin Trade Name Freq PRN Reason Stop Dose Admin Acetaminophen 650 mg 10/05/24 17:00 Acetaminophen 325 Mg Tablet PO 11/04/24 16:59 Q6H PRN Pain 1-3 and/or Fever >100.1 Bumetanide 2 mg 10/06/24 17:45 10/07/24 08:48 Bumetanide Inj 0.25 Mg/Ml Vial 4 Ml IVP 11/05/24 17:44 2 mg QDAY MARNI Administration Calcium Carbonate 600 mg 10/06/24 09:45 10/06/24 09:58 Calcium Carbonate 600 Mg Tablet PO 11/05/24 09:44 600 mg QDAY MARNI Administration Dextrose 25 ml 10/05/24 17:18 Dextrose 50%-Water Inj 50 Ml Syringe IV 11/04/24 17:17 Q15MIN PRN BG 50-70 responsive npo pt Dextrose 50 ml 10/05/24 17:18 Dextrose 50%-Water Inj 50 Ml Syringe IV 11/04/24 17:17 Q15MIN PRN BG <50 OR BG <70 & pt unresponsive Epoetin Brett 10,000 unit 10/07/24 14:00 Epoetin Brett-Epbx Inj 10,000 Unit/Ml Vial (Esrd) SC 10/07/24 14:01 X1 ONE Famotidine 10 mg 10/06/24 14:30 10/07/24 08:49 Famotidine 20 Mg Tablet PO 11/05/24 14:29 10 mg QDAY MARNI Administration Fentanyl Citrate 75 mcg 10/07/24 09:26 Fentanyl Cit Inj 50 Mcg/Ml Amp 2ml IVP 10/07/24 09:27 X1 ONE Glucagon 1 mg 10/05/24 17:18 Glucagon Inj 1 Mg Vial IM Q15MIN PRN BG <70, and no IV access Heparin Sodium (Beef Lung) 500 unit 10/07/24 09:26 Heparin Sod Lock Syr 100 Unit/Ml [facility] 10/07/24 09:27 X1 ONE Ceftriaxone Sodium/Dextrose 1 gm in 50 mls @ 100 mls/hr 10/05/24 18:15 10/07/24 08:49 Rocephin/D5w 1gm Iv Premix IV 10/12/24 18:14 100 mls/hr QDAY MARNI Administration Insulin Human Lispro 0 unit 10/05/24 17:30 10/07/24 07:16 Insulin Lispro (Admelog) 1 Unit/0.01 Ml Unit SC 11/04/24 17:29 Not Given Q6HR MARNI Protocol Labetalol HCl 10 mg 10/06/24 14:34 10/06/24 17:06 Labetalol Inj 5 Mg/Ml Vial 20 Ml IVP 11/04/24 17:22 10 mg Q2H PRN Administration BP >200/105 and HR > 70 Lactulose 10 gm 10/06/24 14:00 10/07/24 05:32 Lactulose Syrup 20 Gm/30 Ml Udc PO 11/05/24 13:59 Not Given TID MARNI Protocol Nicardipine HCl 20 mg 10/06/24 21:00 10/07/24 08:49 Nicardipine 20 Mg Capsule PO 11/05/24 20:59 20 mg BID MARNI Administration Ondansetron HCl 4 mg 10/05/24 17:00 10/05/24 19:30 Ondansetron Inj 2 Mg/Ml Inj 2 Ml IVP 11/04/24 16:59 4 mg Q6H PRN Administration NAUSEA OR VOMITING Protocol Oxycodone/Acetaminophen 1 tab 10/05/24 17:00 Oxycodone/Apap 5/325 Tablet PO 10/10/24 16:59 Q6H PRN PAIN SCALE 4-6 (Moderate Sennosides 1 tab 10/05/24 17:00 Senna Tablet PO 11/04/24 16:59 QDAY PRN constipation Protocol Sevelamer Carbonate 800 mg 10/06/24 12:00 10/06/24 17:15 Sevelamer Carbonate 800 Mg Tablet PO 11/05/24 11:59 800 mg TIDWM MARNI Administration Simethicone 80 mg 10/06/24 09:43 Simethicone 80 Mg Chew PO 11/05/24 09:42 QID PRN GAS Valsartan 160 mg 10/06/24 17:45 10/07/24 08:48 Valsartan 80 Mg Tablet PO 11/05/24 17:44 160 mg QDAY MARNI Administration Vitamin B Complex/Vit C/Folic Acid 1 tab 10/06/24 17:45 10/06/24 18:41 Vit B12/Vit C/Fa (Nephrovite) Tablet PO 11/05/24 17:44 1 tab QDAY MARNI Administration Plan #GILLIAN #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 Patient had nephrotic range proteinuria and good sized kidneys consistent with diabetic nephropathy, Patient still making some urine, But still in positive fluid balance, positive 1200 mL overnight. PTH 341, serum calcium 8.2, phosphorus 7.1. Secondary hyperparathyroidism likely secondary to CKD. Add calcitriol ? IR Dialysis cath placed today, plan for short intermittent hemodialysis initially. ? Conitnue Sevelemer and calcium carbonate #Hypertension Patient presented with hypertensive emergency, systolic blood pressure in the 200s associate with GILLIAN on CKD, and shortness of breath. Currently managed with p.o. nicardipine, IV labetalol as needed, Valsartan 160 mg daily. #Diabetes mellitus - Management per primary team #Concern for pericarditis CT abdomen pelvis showed pericardial effusion, concern for pericarditis,, echocardiogram showed small pericardial effusion without any evidence of cardiac tamponade. Noted dilated IVC. ? Continue with hemodialysis #Anemia of chronic disease #Iron deficiency anemia Decreased iron stores on labs, serum iron 48, TIBC 230. Likely multifactorial due to anemia of chronic disease and iron deficiency. ? Patient received IV ferumoxytol and Procrit #Hyperlipidemia - Continue Lipitor Plan of care discussed with attending Dr Amber Bonner pgy 2 Attending Provider Attestation/Addendum Patient seen and examined with resident physician Dr. Bonner. Note reviewed, agree with findings and recommendations. Patient agreed for dialysis catheter placement. Had dialysis catheter placed by Dr. Daniels. Patient currently seen on dialysis. Tolerating dialysis without any problems. Hemodialysis for 2 hours, blood flow 200, 2K, ultrafiltration 1 L, Epogen 6000, no heparin ordered. Plan of care discussed with the dialysis nurse. Please see dialysis flowsheet for further details. His second dialysis scheduled for tomorrow. Needs outpatient dialysis arrangements. Plan of care discussed with team. PPD ordered
[2024-10-07] MEDS: HEPARIN SOD LOCK SYR 100 UNIT/ML 500 UNIT STFIELD (09:50)
[2024-10-07] MEDS: fentaNYL CIT INJ 50 mCg/ML AMP 2ML 75 MCG IVP (09:57)
[2024-10-07] MEDS: LIDOCAINE INJ PF 1% 5 ML VIAL 8 ML INFL (09:58)
[2024-10-07] MEDS: HEPARIN SOD INJ 1000 UNIT/ML VIAL 3800 UNIT INDWELLCAT (10:15)
[2024-10-07] MEDS: HEPARIN SOD INJ 1000 UNIT/ML VIAL 10 ML 3800 UNIT INDWELLCAT (13:50)
[2024-10-07] MEDS: EPOETIN ALFA-EPBX INJ 10,000 UNIT/ML VIAL (ESRD) 10000 UNIT SC (13:56)
[2024-10-07] MEDS: LACTULOSE SYRUP 20 GM/30 ML UDC 10 GM PO ×2 (14:56→21:30)
[2024-10-07] MEDS: HYDROMORPHONE HCL 2 MG TABLET 1 MG PO (15:10)
--- NOTE | 2024-10-07 16:01 | PC.SS ---
Follow up note: Patient received cath placed today. Systems Eng is . SS contacted dialysis center and submitted documentation to be reviewed for possible chair time. Notes indicate that patient may stay local. SS will follow up with patient and family to verify. If not, then we will need to look at [facility]. Patient is also [facility] and has coverage until 11-04-2024
--- NOTE | 2024-10-07 17:09 | ESPR_ITS ---
Documentation for date of: 10/07/24 Subjective Subjective Interval history: Patient is a 49-year-old male with a past medical history of hypertension, diabetes mellitus type 2 insulin-dependent on glargine 15 units at bedtime, and past medical history of gastritis status post EGD who was admtited on 10/05/2024 secodnary to acute renal failure and hypertensive emergency. 10/07/2024: Patient examinded at bedside. Patient denied chest pain or shortness of breath. No pyrexia reported overnight. Denied chills overnight. Over the last 12 hours overnight 237/ output 450/net -213. Denied supra-pubic tenderness. I bowel movement reported overnight. Dialysis scheduled for today, Net Total Removed 2.0 L. Patient shared when he was intitially diagnosed with diabetes in 2014, his glucose was elevated in 700s and previously had a diabetic ulcer. Patient was unable to tolerate Metformin as it caused his nausea previously. Patient stated is plans to stay in [place] and live with his sister. Patient inquired about goal for glucose levels, 80-130 Fasting and under 200 after meals. Exam Vital Signs Temp Pulse Resp BP Pulse Ox O2 Del Method 98.3 F 88 19 168/102 H 98 Room Air 10/07/24 16:00 10/07/24 16:00 10/07/24 16:00 10/07/24 16:00 10/07/24 16:10/07/24 16:00 Narrative Exam General Appearance: Alert & Oriented X3, well-nourished male who is lying in bed in no acute distress HEENT: Skull symmetrical and atraumatic. Conjunctivae pin and moist. Pupils equal, round, reactive to light and accommodation (PERRL). External ear without lesion or discharge. Straight, nares patient, mucosa pink, no discharge. Cardio: Normal Rate and Rhythm with S1 and S2 heart sounds. No murmurs or extra heart sounds auscultated. No bruits on carotid auscultation. No JVD noted, Peripheral edema noted +3 below the knee Lungs: Symmetric with good expansion. Back tenderness. Breath sounds vesicular without crackles, wheezing or rhonchi Abdomen: Diffuse Tenderness, Non-distended, Normal Reactive Bowel Sounds Neuro: Alert, cooperative, oriented to person, place, and time. Speech clear. CN grossly intact. Upper motor strength 5/5 and Lower motor strength 5/5. Sensation intact. Objective Labs 10/07/24 05:35 10/07/24 05:35 Labs: Laboratory Results - last 24 hr 10/05/24 10/06/24 10/07/24 17:35 12:50 00:05 WBC RBC Hgb Hct MCV MCH MCHC RDW Std Deviation Plt Count Neut % (Auto) Lymph % (Auto) [place] % (Auto) Eos % (Auto) Baso % (Auto) Neut # (Auto) Lymph # (Auto) [place] # (Auto) Eos # (Auto) Baso # (Auto) Immature Gran # (Auto) Absolute Nucleated RBC Immature Gran % Nucleated RBC % PT INR APTT Sodium Potassium Chloride Carbon Dioxide Anion Gap BUN Creatinine Estim Creat Clear Calc eGFR BUN/Creatinine Ratio Glucose Calculated Osmolality Calcium Corrected Calcium Phosphorus Magnesium Total Bilirubin AST ALT Alkaline Phosphatase Total Protein Albumin Globulin Albumin/Globulin Ratio Tumor Marker AFP 1.70 PTH Intact 341.4 H Stool Occult Blood Positive A Hepatitis A IgM Ab Non Reactive Non Reactive Hep Bs Antigen Non Reactive Non Reactive Hep B Core IgM Ab Non Reactive Non Reactive Hepatitis C Antibody Non Reactive Non Reactive 10/07/24 05:35 WBC 5.9 RBC 2.60 L Hgb 7.7 L Hct 21.1 L* MCV 81 MCH 29.6 MCHC 36.5 RDW Std Deviation 38.6 Plt Count 228 Neut % (Auto) 67 Lymph % (Auto) 19 [place] % (Auto) 10 Eos % (Auto) 4 Baso % (Auto) 1 Neut # (Auto) 3.9 Lymph # (Auto) 1.1 [place] # (Auto) 0.6 Eos # (Auto) 0.2 Baso # (Auto) 0.0 Immature Gran # (Auto) 0.03 H Absolute Nucleated RBC 0.00 Immature Gran % 1 H Nucleated RBC % 0 PT 11.0 INR 1.0 APTT 25.4 Sodium 140 Potassium 4.0 Chloride 110 H Carbon Dioxide 17.1 L Anion Gap 13 BUN 72 H Creatinine 9.0 H* Estim Creat Clear Calc 8.6 L eGFR 7 L* BUN/Creatinine Ratio 8 L Glucose 122 H Calculated Osmolality 301 H Calcium 7.0 L Corrected Calcium 8.2 L Phosphorus 7.1 H Magnesium 2.0 Total Bilirubin 0.2 L AST < 8 ALT < 7 L Alkaline Phosphatase 74 Total Protein 4.1 L Albumin 2.5 L Globulin 1.6 L Albumin/Globulin Ratio 1.6 Tumor Marker AFP PTH Intact Stool Occult Blood Hepatitis A IgM Ab Hep Bs Antigen Hep B Core IgM Ab Hepatitis C Antibody ABG Interpretation ABG results: 10/05/24 12:16 ABG pH 7.32 L ABG pCO2 31 L ABG pO2 101 ABG HCO3 16 L ABG O2 Saturation 99 H ABG Base Excess -9 L Quality Measures Quality Measures none Assessment & Plan Assessment Current Active Medications: Generic Name Dose Route Start Last Admin Trade Name Daja PRN Reason Stop Dose Admin Acetaminophen 650 mg 10/05/24 17:00 Acetaminophen 325 Mg Tablet PO 11/04/24 16:59 Q6H PRN Pain 1-3 and/or Fever >100.1 Bumetanide 2 mg 10/06/24 17:45 10/07/24 08:48 Bumetanide Inj 0.25 Mg/Ml Vial 4 Ml IVP 11/05/24 17:44 2 mg QDAY MARNI Administration Calcium Carbonate 600 mg 10/06/24 09:45 10/07/24 12:14 Calcium Carbonate 600 Mg Tablet PO 11/05/24 09:44 Not Given QDAY MARNI Dextrose 25 ml 10/05/24 17:18 Dextrose 50%-Water Inj 50 Ml Syringe IV 11/04/24 17:17 Q15MIN PRN BG 50-70 responsive npo pt Dextrose 50 ml 10/05/24 17:18 Dextrose 50%-Water Inj 50 Ml Syringe IV 11/04/24 17:17 Q15MIN PRN BG <50 OR BG <70 & pt unresponsive Famotidine 10 mg 10/06/24 14:30 10/07/24 08:49 Famotidine 20 Mg Tablet PO 11/05/24 14:29 10 mg QDAY MARNI Administration Glucagon 1 mg 10/05/24 17:18 Glucagon Inj 1 Mg Vial IM Q15MIN PRN BG <70, and no IV access Heparin Sodium (Porcine) 3,800 unit 10/07/24 12:35 10/07/24 13:50 Heparin Sod Inj 1000 Unit/Ml Vial 10 Ml INDWELLCAT 10/21/24 12:34 3,800 unit PRN PRN Administration DIALYSIS Ceftriaxone Sodium/Dextrose 1 gm in 50 mls @ 100 mls/hr 10/05/24 18:15 10/07/24 10:07 Rocephin/D5w 1gm Iv Premix IV 10/12/24 18:14 Infused QDAY MARNI Infusion Albumin Human 25 gm in 100 mls @ 100 mls/min 10/07/24 12:35 Albuminar-25 Ivpb IV 10/10/24 12:34 PRN PRN dialysis Insulin Human Lispro 0 unit 10/05/24 17:30 10/07/24 13:19 Insulin Lispro (Admelog) 1 Unit/0.01 Ml Unit SC 11/04/24 17:29 Not Given Q6HR MARNI Protocol Labetalol HCl 10 mg 10/06/24 14:34 10/06/24 17:06 Labetalol Inj 5 Mg/Ml Vial 20 Ml IVP 11/04/24 17:22 10 mg Q2H PRN Administration BP >200/105 and HR > 70 Lactulose 10 gm 10/06/24 14:00 10/07/24 14:56 Lactulose Syrup 20 Gm/30 Ml Udc PO 11/05/24 13:59 10 gm TID MARNI Administration Protocol Nicardipine HCl 20 mg 10/06/24 21:00 10/07/24 08:49 Nicardipine 20 Mg Capsule PO 11/05/24 20:59 20 mg BID MARNI Administration Ondansetron HCl 4 mg 10/05/24 17:00 10/05/24 19:30 Ondansetron Inj 2 Mg/Ml Inj 2 Ml IVP 11/04/24 16:59 4 mg Q6H PRN Administration NAUSEA OR VOMITING Protocol Oxycodone/Acetaminophen 1 tab 10/05/24 17:00 Oxycodone/Apap 5/325 Tablet PO 10/10/24 16:59 Q6H PRN PAIN SCALE 4-6 (Moderate Sennosides 1 tab 10/05/24 17:00 Senna Tablet PO 11/04/24 16:59 QDAY PRN constipation Protocol Sevelamer Carbonate 800 mg 10/06/24 12:00 10/07/24 13:20 Sevelamer Carbonate 800 Mg Tablet PO 11/05/24 11:59 Not Given TIDWM MARNI Simethicone 80 mg 10/06/24 09:43 Simethicone 80 Mg Chew PO 11/05/24 09:42 QID PRN GAS Valsartan 160 mg 10/06/24 17:45 10/07/24 08:48 Valsartan 80 Mg Tablet PO 11/05/24 17:44 160 mg QDAY MARNI Administration Vitamin B Complex/Vit C/Folic Acid 1 tab 10/06/24 17:45 10/07/24 12:14 Vit B12/Vit C/Fa (Nephrovite) Tablet PO 11/05/24 17:44 Not Given QDAY MARNI Plan Patient is a 49-year-old male with a past medical history of hypertension, diabetes mellitus type 2 insulin-dependent on glargine 15 units at bedtime, and past medical history of gastritis patient was admitted for hypertensive emergency and acute renal failure. #Troponemia #NSTEMI II On admission epigastric pain radiating towards right and left upper quadrant with shortness of breath. Troponin levels down trended from 0.312 to 0.291. EKG no ST elevation noted. NSTEMI type II in the setting of end state renal disease vs Less likely secondary to CA as troponin within normal limits vs versus CHF given pulmonary vascular congestion, mild enlargement of cardiac contour w/elevated BNP, and worsening lower pedal edema 10/07/2024: Elevated Troponin in setting of NSTEMI Type II, treat underlying renal failure. Cardiology signing off. Diagnostics: Echo (10/05/2024): Estimated EF 55 to 60%. Grade 1 diastolic dysfunction. Normal RV size and function. Estimated RVSP mildly elevated at 40-45 mmHg. Mild MR and TR. Mild to moderately dilated LA.Small pericardial effusion noted without any evidence of any cardiac tamponade. Dilated IVC. Chest x-ray Mild enlargement cardiac contour, Mild vascular congestion; CT abdomen/Pelvis: Mild to moderate enlargement cardiac contour and Small pericardial effusion. Troponin: 0.352, 0.311, 0.312, 0.291, BNP 796 Plan -low sodium diet -In the setting of renal failure, continue to monitor K and Magnesium -Consider follow up BNP #Small pericardial Effusion Likely in the setting of Uremia, No tamponade noted on echo. Plan -No acute intevention #Hypertensive Emergency, resolved. #Acute Renal Failure #Hypochloremia #Hyperphosphatemia #Hypocalcemia Patient presented with GILLIAN on CKD, GFR of 6 and creatine level of 9.4, unknown baseline. BUN/Cr ratio of 8. Renal ultrasound noted to have Mild bilateral renal parenchymal scar formation. Given long standing history of HTN, likely contributing to CKD. CKD recent diagnosed in April 2024. Patient still produces urine. Nephrotic syndrome can not be ruled out given elevated protein in the urine vs obstructive less likely as not hydronephrosis noted on US. 10/07/2024: s/p dialysis session 2.0 Liters removed. Diagnostics: Cr 103, Microalbumin >380, total protien 1570, Na 22.8, K 49, Chloride 33.3, Mircoalbumin/Cr ratio 369 US Renal: Mild bilateral renal parenchymal scar formation PTH: 341. 4 Plan -Bumex 2 mg IVP Qday -Avoid nephrotoxins -Renall dose medicaiton -Sevelamer 800 mg PO TIDWM -Nephrology Following, Dr. Clark, appreciate recommendations #Hypertension #Hypertensive Emergency, resolved. Patient has past medical hisotry of uncontrolled hypertension and non-adherent to medication. Plan: -Valsartan 160 mg PO Qday and Nicardipine 20 PO BID -Labetaolol IV 10 mg IVP PRN, #Hyperlipidemia Patient has past medical history of diabetes mellitus type II. Denied use of statins or history of high cholesterol. ASCVD 7.5%, high intensity recommened. AST/ALT within normal limits. Plan -Consider Atorvastatin #Metabolic Acidosis, Anion Gap, improving Likely in the setting of uremia vs less likely secondary to beta-hydroxybutyrate as only 0.9 vs less likely secondary to lactic acidosis Anion gap: 17-->13 Plan -Treat underlying condition of renal failure-->dialysis #Diabetes Mellitus Type II, Insulin Dependent Past medical history of diabetes Mellitus type II, insulin dependent, initially diagnosed 8 years ago. A1c 5.7 on admission with glucose of 165. Plan -Sliding Scale -monitor Fasting Glucose #Cirrhosis w/ ascites, unknown etiology Unknown etiology of cirrhosis. Patient denied past medical history of alcohol use disorder of illicit drug use. Deneid genetic component. Denied colonoscopy. Previous EGD noted to have gastritis per patient history. Never been told that he has a past medical history of cirrhosis. Hepatitis Panel Negative. Plan -Ceftriaxone (10/05/2024-) -Gallbladder US -CEA, AFP, Alpha anti-trypsin, JESSICA, Ceruoplasmin, copper, Mitochondrial -consider utox (none on file) #Microcytic Anemia Anemia Microcytic Anemia as patient presented with MCV 84, hgb 8.0, Hct 23.0, and MCV 84 in the setting of decreased Iron vs anemia of CKD in the setting of low EPO vs anemia of chronic inflammation Diagnostics: Iron Panel: Iron 48 (L), TIBC 230 (L), Iron saturation 20%, Unsat Iron Binding 182 (L), Ferritin 182 Hgb 8.0, Hct 23.0, MCV 84 Plan -IV Ferumoxytol -EPO X1 -Vitamin B/Folic Acid tab qday #Small bowel ileus Patient still passing gas, continue to monitor . Plan -no acute intervention Health Maintenance: Disp: Pt is currently admitted to floors for further management of Renal Failure, cardiology signing off. FEN: Low carb consistent DVT: Compression Device GI: Famotidine 10 mg Qday Code: Full Code - The patient's plan was discussed with attending Dr. Ruby Mckeon MD PGY1 Internal Medicine Attending Provider Attestation/Addendum I have personally seen and examined the patient separately on the above date of service and discussed the plan of care with the resident. I reviewed the resident Dr. Edith Mckeon consultation progress note and agree with the resident findings and plan in the note above and have also edited the documentation to reflect my findings and plan. Stephan Beltran M.D. Interventional Cardiology
[2024-10-07] MEDS: SEVELAMER CARBONATE 800 MG TABLET PO (17:11)
[2024-10-07] MEDS: INSULIN LISPRO (AdmeLOG) 1 UNIT/0.01 ML UNIT SC (17:29)
--- NOTE | 2024-10-07 19:05 | PD.IMPROG ---
Documentation for date of: 10/07/24 Subjective Subjective Interval history: Patient was scheduled for an EGD He initially had a placement of an IJ and then went to dialysis He was still on the schedule but he got very tired and wanted to do the EGD tomorrow morning and today which I totally understood Exam Vital Signs Temp Pulse Resp BP Pulse Ox O2 Del Method 98.3 F 88 19 168/102 H 98 Room Air 10/07/24 16:00 10/07/24 16:00 10/07/24 16:00 10/07/24 16:00 10/07/24 16:00 10/07/24 16:00 Objective Labs 10/07/24 05:35 10/07/24 05:35 Labs: Laboratory Results - last 24 hr 10/05/24 10/06/24 10/07/24 17:35 12:50 00:05 WBC RBC Hgb Hct MCV MCH MCHC RDW Std Deviation Plt Count Neut % (Auto) Lymph % (Auto) [place] % (Auto) Eos % (Auto) Baso % (Auto) Neut # (Auto) Lymph # (Auto) [place] # (Auto) Eos # (Auto) Baso # (Auto) Immature Gran # (Auto) Absolute Nucleated RBC Immature Gran % Nucleated RBC % PT INR APTT Sodium Potassium Chloride Carbon Dioxide Anion Gap BUN Creatinine Estim Creat Clear Calc eGFR BUN/Creatinine Ratio Glucose Calculated Osmolality Calcium Corrected Calcium Phosphorus Magnesium Total Bilirubin AST ALT Alkaline Phosphatase Total Protein Albumin Globulin Albumin/Globulin Ratio Tumor Marker AFP 1.70 PTH Intact 341.4 H Stool Occult Blood Positive A Hepatitis A IgM Ab Non Reactive Non Reactive Hep Bs Antigen Non Reactive Non Reactive Hep B Core IgM Ab Non Reactive Non Reactive Hepatitis C Antibody Non Reactive Non Reactive 10/07/24 05:35 WBC 5.9 RBC 2.60 L Hgb 7.7 L Hct 21.1 L* MCV 81 MCH 29.6 MCHC 36.5 RDW Std Deviation 38.6 Plt Count 228 Neut % (Auto) 67 Lymph % (Auto) 19 [place] % (Auto) 10 Eos % (Auto) 4 Baso % (Auto) 1 Neut # (Auto) 3.9 Lymph # (Auto) 1.1 [place] # (Auto) 0.6 Eos # (Auto) 0.2 Baso # (Auto) 0.0 Immature Gran # (Auto) 0.03 H Absolute Nucleated RBC 0.00 Immature Gran % 1 H Nucleated RBC % 0 PT 11.0 INR 1.0 APTT 25.4 Sodium 140 Potassium 4.0 Chloride 110 H Carbon Dioxide 17.1 L Anion Gap 13 BUN 72 H Creatinine 9.0 H* Estim Creat Clear Calc 8.6 L eGFR 7 L* BUN/Creatinine Ratio 8 L Glucose 122 H Calculated Osmolality 301 H Calcium 7.0 L Corrected Calcium 8.2 L Phosphorus 7.1 H Magnesium 2.0 Total Bilirubin 0.2 L AST < 8 ALT < 7 L Alkaline Phosphatase 74 Total Protein 4.1 L Albumin 2.5 L Globulin 1.6 L Albumin/Globulin Ratio 1.6 Tumor Marker AFP PTH Intact Stool Occult Blood Hepatitis A IgM Ab Hep Bs Antigen Hep B Core IgM Ab Hepatitis C Antibody Impressions Impression: Pain abdomen anemia EGD a.m. ABG Interpretation ABG results: 10/05/24 12:16 ABG pH 7.32 L ABG pCO2 31 L ABG pO2 101 ABG HCO3 16 L ABG O2 Saturation 99 H ABG Base Excess -9 L Assessment & Plan A&P Narrative # Nausea vomiting epigastric pain could be related to patient's uremic syndrome however GI causes Needs to be ruled out Plan Gallbladder ultrasound # Patient does have normal liver function test and his cirrhosis is well compensated I will order a complete workup for the chronic active hepatitis Can follow the patient along We will consider doing an upper endoscopy if the symptoms of abdominal pain nausea vomiting continues Other medical problems include # GILLIAN on CKD # IDDM # Essential hypertension Thank you very much for the opportunity to participate in the care of this patient Time Spent With Patient Time: Total time spent is greater than 50% in coordination of care (as documented) at patient's floor/unit and/or counseling patient:
[2024-10-08] VITALS (35 sets, daily range): BP systolic 116–210; BP diastolic 67–117; PULSE 71–89; RESP 12–20; TEMP 36.1–37; O2SAT 92–99
[2024-10-08] MEDS: INSULIN LISPRO (AdmeLOG) 1 UNIT/0.01 ML UNIT SC (00:01)
[2024-10-08] MEDS: LABETALOL INJ 5 MG/ML VIAL 20 ML 10 MG IVP ×2 (05:14→11:45)
[2024-10-08] MEDS: LACTULOSE SYRUP 20 GM/30 ML UDC 10 GM PO (05:14)
[2024-10-08 05:37] LABS: Basophils % (Auto) 1 % (0-2.5); Eosinophils # (Auto) 0.2 Thou/mm3 (0.0-0.5); Eosinophils % (Auto) 4 % (0-10); Hematocrit 22.9 % (41.0-53.0); Immature Granulocytes % (Auto) 1 % (0-0); Immature Granulocytes Auto 0.05 Thou/mm3 (0.00-0.00); Lymphocytes # (Auto) 1.3 Thou/mm3 (1.0-4.8); Lymphocytes % (Auto) 21 % (10-50); Mean Corpuscular HGB Conc 34.9 g/dl (31.0-37.0); Mean Corpuscular Hemoglobin 29.2 pg (25.0-35.0); Mean Corpuscular Volume 84 fL (80-100); Monocytes # (Auto) 0.9 Thou/mm3 (0.0-0.8); Monocytes % (Auto) 14 % (0-12); Neutrophils # (Auto) 3.8 Thou/mm3 (1.8-7.7); Neutrophils % (Auto) 60 % (37-80); Nucleated Red Blood Cell % 0 /100 WBC (0); Platelet Count 209 Thou/mm3 (140-440); RDW Standard Deviation 40.2 fL (35.1-43.9); Red Blood Count 2.74 Miln/mm3 (4.50-5.90); White Blood Count 6.3 Thou/mm3 (3.8-10.6)
[2024-10-08 06:13] LABS: Alanine Aminotransferase < 7 U/L (10-49); Albumin, Serum 2.5 gm/dL (3.5-5.0); Albumin/Globulin Ratio 1.5 (1.2-2.2); Alkaline Phosphatase 85 U/L (46-116); Anion Gap 12 (7-16); Aspartate Amino Transferase < 8 U/L (0-34); BUN/Creatinine Ratio 8 Ratio (12-20); Bilirubin,Total < 0.2 mg/dL (0.3-1.2); Blood Urea Nitrogen 61 mg/dL (9-23); Carbon Dioxide 22.8 mMol/L (20.0-31.0); Chloride 105 mMol/L (98-107); Creatinine (Component) 7.6 mg/dL (0.6-1.3); Estimated Creatinine Clearance 10.2 mL/min (>60); Globulin 1.7 gm/dL (2.3-3.5); Glucose 139 mg/dL (74-106); Magnesium 1.9 mg/dL (1.6-2.6); Osmolality,Calculated 298 (275-295); Potassium 3.7 mMol/L (3.4-5.1); Sodium 140 mMol/L (136-145); Total Protein 4.2 gm/dL (5.7-8.2); eGFR 8 See Note
[2024-10-08 06:15] LABS: Calcium 6.8 mg/dL (8.3-10.6)
[2024-10-08] MEDS: SEVELAMER CARBONATE 800 MG TABLET PO ×2 (07:43→12:16)
--- NOTE | 2024-10-08 09:06 | PD.RESPRO ---
Documentation for date of: 10/08/24 Subjective Subjective Interval history: Interval history: Informant Sister Radha, patient educational assistant Katalina, monitor technician. Mr. Cardenas is a 49-year-old male with past medical history of hypertension x 20 years, gastritis, type 2 diabetes x8 yrs, noncompliant and does not follow-up with a primary care physician for several years presenting to the ED on 10/05/2024 with several days of abdominal discomfort and nausea. Patient was vacationing in [place] to visit his sister. He is from [place]. patient has not been eating well for the past week or so and has been having chills on and off. Patient does not take any home medications at this time but has been told in the past that he has kidney problems, high blood pressure and diabetes. Patient denies any sick contacts or recent travel; moreover, denies having any chest pain, palpitations but does state that he periodically gets blurry vision, headaches and dizziness. Sister noticed that he is having some swelling in the lower extremities. Home medications apparently was on insulin but not taking. Denies any alcohol, smoking, illicit drug use. In the ED, patient presented hypertensive emergency with systolic blood pressure 219 and diastolic 122, heart rate 98, respiratory 20, afebrile satting 100 on room air. Pertinent lab findings included WBC 9.9, hemoglobin 10.8 with MCV of 83, ABG showed pH of 7.32, [id number], [id number] and bicarb of 16. Patient has acute renal failure with a BUN of 79, creatinine 9.4 and anion gap of 17, lactic acid 1.0, troponin 0.252, BNP 786. Chest x-ray shows mild vascular congestion, EKG shows sinus rhythm with possible left atrial enlargement and nonspecific ST changes, CT abdomen pelvis showed cirrhosis, mild ascites. Dr. Vincent was consulted-patient seems to have AYALA Patient was admitted for hypertensive emergency, acute renal failure and renal consultation requested for need for dialysis. 10/06/2024 Katalina telemonitor is a educational assistant. Sister Radha at bedside. Labs/medications reviewed. Blood pressure 190/121-on labetalol IV. Blood sugar 138. Hemoglobin 8.0, platelets 241. Sodium 142, potassium 4, chloride 108, bicarbonate 17, anion gap 17, BUN 75, creatinine 9.1, glucose 129, uric acid 9.5, calcium 8, phosphorus 7.2, ferritin 182, iron saturation 20, LFTs normal, troponin 0.2, albumin 2.5, triglycerides 284, LDL 89, urinalysis significant proteinuria. Urine protein/creatinine 15.5 g. Urine anion gap 35. Had a long conversation with the patient and sister that despite medical management he did not improve his kidney function. He will need dialysis. No role for biopsy due to his underlying longstanding poorly controlled hypertension and diabetes for years. Patient and sister had several questions. More than 45 minutes were spent and finally they agreed for dialysis. Will plan for dialysis in a.m. 10/07/24 patient was seen at bedside, questions and concerns were answered in detail, blood pressure 149/81, scheduled for dialysis catheter placement today. Urine output 450 mL overnight, positive fluid balance 1200 mL. Plan for hemodialysis after tunneled cath. BUN 72, creatinine 9.0, EGFR 7. Sodium 140, potassium 4.0, chloride 110, bicarb 17.1. 11/04/2024: Patient seen and examined at bedside this morning. No acute overnight events. Patient with approximately 500 cc urine output. Vitals, labs reviewed. Patient remains hypertensive with SBP 170?200, on nicardipine and valsartan with as needed labetalol. Recommend to change nicardipine to nifedipine XL upon discharge, and increased valsartan to 320 mg. Recommend adding a beta-derek as HR and BP can tolerate. Hemoglobin stable at 8; no signs of bleed at this time. Can continue with Epo at HD. Panel showing improvement in bicarb & creatinine. Will continue with hemodialysis. Corrected calcium 8.0, phosphorus 6.0. Pending alpha-1 antitrypsin, ceruloplasmin. At bedside, patient states he is fatigued and tired. He was scheduled for an EGD today however states he would like to do it at a later time. Exam Vital Signs Temp Pulse Resp BP Pulse Ox O2 Del Method 98.6 F 82 18 179/102 H 98 Room Air 10/08/24 08:06 10/08/24 09:00 10/08/24 08:06 10/08/24 09:00 10/08/24 08:06 10/08/24 07:49 Narrative Exam Gen: AAOx3, in moderate distress HEENT: NCAT, PERRLA, EOMI, MMM, facial edema improving; R IJ cath noted CVS: normal S1, S2. RRR. No MRG Resp: CTA B/L. No rhonchi, rales, crackles or wheezing Abd: soft, non-tender, non-distended. BS+ in all 4 quadrants MSK: Good ROM in BUE & BLE. Pitting edema improving Neuro: CN II-XII grossly intact. no focal deficits appreciated Objective Labs 10/08/24 04:21 10/08/24 04:21 Labs: Laboratory Results - last 24 hr 10/08/24 04:21 WBC 6.3 RBC 2.74 L Hgb 8.0 L Hct 22.9 L MCV 84 MCH 29.2 MCHC 34.9 RDW Std Deviation 40.2 Plt Count 209 Neut % (Auto) 60 Lymph % (Auto) 21 [place] % (Auto) 14 H Eos % (Auto) 4 Baso % (Auto) 1 Neut # (Auto) 3.8 Lymph # (Auto) 1.3 [place] # (Auto) 0.9 H Eos # (Auto) 0.2 Baso # (Auto) 0.0 Immature Gran # (Auto) 0.05 H Absolute Nucleated RBC 0.00 Immature Gran % 1 H Nucleated RBC % 0 Sodium 140 Potassium 3.7 Chloride 105 Carbon Dioxide 22.8 Anion Gap 12 BUN 61 H Creatinine 7.6 H* D Estim Creat Clear Calc 10.2 L eGFR 8 L* BUN/Creatinine Ratio 8 L Glucose 139 H Calculated Osmolality 298 H Calcium 6.8 L* Corrected Calcium 8.0 L Phosphorus 6.0 H Magnesium 1.9 Total Bilirubin < 0.2 L AST < 8 ALT < 7 L Alkaline Phosphatase 85 Total Protein 4.2 L Albumin 2.5 L Globulin 1.7 L Albumin/Globulin Ratio 1.5 ABG Interpretation ABG results: 10/05/24 12:16 ABG pH 7.32 L ABG pCO2 31 L ABG pO2 101 ABG HCO3 16 L ABG O2 Saturation 99 H ABG Base Excess -9 L Quality Measures Quality Measures VTE prophylaxis (SCDs) Assessment & Plan Assessment Current Active Medications: Generic Name Dose Route Start Last Admin Trade Name Freq PRN Reason Stop Dose Admin Acetaminophen 650 mg 10/05/24 17:00 Acetaminophen 325 Mg Tablet PO 11/04/24 16:59 Q6H PRN Pain 1-3 and/or Fever >100.1 Bumetanide 2 mg 10/06/24 17:45 10/07/24 08:48 Bumetanide Inj 0.25 Mg/Ml Vial 4 Ml IVP 11/05/24 17:44 2 mg QDAY MARNI Administration Calcitriol 0.5 mcg 10/08/24 09:00 Calcitriol 0.25 Mcg Capsule PO 11/07/24 08:59 QDAY MARNI Calcium Carbonate 600 mg 10/06/24 09:45 10/07/24 12:14 Calcium Carbonate 600 Mg Tablet PO 11/05/24 09:44 Not Given QDAY MARNI Dextrose 25 ml 10/05/24 17:18 Dextrose 50%-Water Inj 50 Ml Syringe IV 11/04/24 17:17 Q15MIN PRN BG 50-70 responsive npo pt Dextrose 50 ml 10/05/24 17:18 Dextrose 50%-Water Inj 50 Ml Syringe IV 11/04/24 17:17 Q15MIN PRN BG <50 OR BG <70 & pt unresponsive Famotidine 10 mg 10/06/24 14:30 10/07/24 08:49 Famotidine 20 Mg Tablet PO 11/05/24 14:29 10 mg QDAY MARNI Administration Glucagon 1 mg 10/05/24 17:18 Glucagon Inj 1 Mg Vial IM Q15MIN PRN BG <70, and no IV access Heparin Sodium (Porcine) 3,800 unit 10/07/24 12:35 10/07/24 13:50 Heparin Sod Inj 1000 Unit/Ml Vial 10 Ml INDWELLCAT 10/21/24 12:34 3,800 unit PRN PRN Administration DIALYSIS Ceftriaxone Sodium/Dextrose 1 gm in 50 mls @ 100 mls/hr 10/05/24 18:15 10/07/24 10:07 Rocephin/D5w 1gm Iv Premix IV 10/12/24 18:14 Infused QDAY MARNI Infusion Albumin Human 25 gm in 100 mls @ 100 mls/min 10/07/24 12:35 Albuminar-25 Ivpb IV 10/10/24 12:34 PRN PRN dialysis Insulin Human Lispro 0 unit 10/05/24 17:30 10/08/24 05:36 Insulin Lispro (Admelog) 1 Unit/0.01 Ml Unit SC 11/04/24 17:29 Not Given Q6HR [facility] Protocol Labetalol HCl 10 mg 10/07/24 17:20 10/08/24 05:14 Labetalol Inj 5 Mg/Ml Vial 20 Ml IVP 11/04/24 17:22 10 mg Q2H PRN Administration SBP > 170 and HR > 70 Lactulose 10 gm 10/06/24 14:00 10/08/24 05:14 Lactulose Syrup 20 Gm/30 Ml Udc PO 11/05/24 13:59 10 gm TID MARNI Administration Protocol Nicardipine HCl 20 mg 10/06/24 21:00 10/07/24 20:24 Nicardipine 20 Mg Capsule PO 11/05/24 20:59 20 mg BID MARNI Administration Ondansetron HCl 4 mg 10/05/24 17:00 10/05/24 19:30 Ondansetron Inj 2 Mg/Ml Inj 2 Ml IVP 11/04/24 16:59 4 mg Q6H PRN Administration NAUSEA OR VOMITING Protocol Oxycodone/Acetaminophen 1 tab 10/05/24 17:00 Oxycodone/Apap 5/325 Tablet PO 10/10/24 16:59 Q6H PRN PAIN SCALE 4-6 (Moderate Sennosides 1 tab 10/05/24 17:00 Senna Tablet PO 11/04/24 16:59 QDAY PRN constipation Protocol Sevelamer Carbonate 800 mg 10/06/24 12:00 10/08/24 07:43 Sevelamer Carbonate 800 Mg Tablet PO 11/05/24 11:59 800 mg TIDWM MARNI Administration Simethicone 80 mg 10/06/24 09:43 Simethicone 80 Mg Chew PO 11/05/24 09:42 QID PRN GAS Valsartan 160 mg 10/06/24 17:45 10/07/24 08:48 Valsartan 80 Mg Tablet PO 11/05/24 17:44 160 mg QDAY MARNI Administration Vitamin B Complex/Vit C/Folic Acid 1 tab 10/06/24 17:45 10/07/24 12:14 Vit B12/Vit C/Fa (Nephrovite) Tablet PO 11/05/24 17:44 Not Given QDAY MARNI Plan #Worsening CKD #ESRD #Secondary hyperparathyroidism #Hypocalcemia #Anion gap metabolic acidosis, resolved, likely secondary to underlying renal failure Patient transitioning to ESRD, on HD day 2. Likely secondary to uncontrolled hypertension and diabetes Continue HD, calcium carbonate, phosphate binders, Nephro-Kandy, and calcitriol Hepatitis panel negative; Follow-up PPD #Uncontrolled hypertension #Hypertensive emergency SBP 170?200s while on nicardipine, valsartan, bumex and as needed labetalol => recommend to change nicardipine to Procardia XL, max of valsartan at 320 MGs, and added beta-derek as HR & BP will tolerate #Diabetes mellitus SSI, Accu-Cheks every 6 hours #Concern for pericarditis CT abdomen pelvis showed pericardial effusion, concern for pericarditis,, echocardiogram showed small pericardial effusion without any evidence of cardiac tamponade. Noted dilated IVC. Possibly uremic pericarditis Continue with hemodialysis #Anemia of chronic disease #Iron deficiency anemia #Concern for GI bleed Decreased iron stores on labs, serum iron 48, TIBC 230. Likely multifactorial due to anemia of chronic disease and iron deficiency. Patient received IV ferumoxytol and Procrit => can consider continuing Procrit with HD +FOBT, GI following, EGD pending #Hyperlipidemia Continue Lipitor Patient seen and care discussed with my attending Dr. Clark. Baljinder Mora MD PGY-3 Attending Provider Attestation/Addendum Patient seen and examined with resident physician Dr. Mora. Note reviewed, agree with findings and recommendations. Patient agreed for dialysis catheter placement. Had dialysis catheter placed by Dr. Daniels. Patient currently seen on dialysis. Tolerating dialysis without any problems. Hemodialysis for 2.5 hours, blood flow 200, 2K, ultrafiltration 1-2 L, Epogen 6000, no heparin ordered. Plan of care discussed with the dialysis nurse. Please see dialysis flowsheet for further details. His third dialysis scheduled for tomorrow. Needs outpatient dialysis arrangements. Plan of care discussed with team. PPD negative
[2024-10-08] MEDS: NIFEdipine XL 30 MG TABCR 60 MG PO (09:37)
--- NOTE | 2024-10-08 09:42 | PC.SS ---
Follow up note: SS spoke to patient's sister, Earnest, regarding discharge plans. Sister states patient is going to be staying here with her for a while. SS cancelled [facility] information and re sent to [facility] dialysis for review. Patient had day 2 of dialysis. TB results pending.
[2024-10-08 09:56] LABS: Hepatitis B Surface Antigen Non Reactive (Non React)
[2024-10-08] MEDS: HEPARIN SOD INJ 1000 UNIT/ML VIAL 10 ML 3800 UNIT INDWELLCAT (10:38)
--- NOTE | 2024-10-08 11:02 | ESPR_ITS ---
<Statement entered by Kt Saavedra MD - 10/09/24 07:19> I discussed with and supervised the event planning intern physician involved in the care of this patient. Patient assessment and plan was discussed with entire medicine team, including my attending. I agree with the assessment and plan as documented by event planning intern doctor. Patient care was discussed with my attending physician Dr. Xochitl Saavedra, PGY-2 Documentation for date of: 10/08/24 Subjective Subjective Interval history: No acute overnight events. Seen and examined during HD. First HD session was yesterday, 2 L fluid removed, tolerated well. CR down to 7.6 today, urine output 500 cc with BUMEX, lower extremity edema improving. Continued n.p.o. for endoscopy today, Hgb stable 8.0. Exam Vital Signs Temp Pulse Resp BP Pulse Ox O2 Del Method 98.6 F 80 18 159/93 H 96 Room Air 10/08/24 10:36 10/08/24 10:47 10/08/24 10:36 10/08/24 10:47 10/08/24 10:36 10/08/24 07:49 Narrative Exam GENERAL * Ill-appearing middle-age male, NAD HEENT * NCAT.?COURTNEY. Oral mucosa is moist. Patent Nares NECK * Supple, nontender, no thyromegaly, no meningismus, no JVD, no step offs CHEST * RRR, no m/g/r * CTAB, no w/r/r. Symmetrical chest rise. No intercostal subcostal retraction * Atraumatic, nontender, no crepitus, symmetrical expansion. ABDOMEN * Soft, flat, nontender. No guarding/rebound tenderness/masses. * Bowel sounds presents EXTREMITIES * Improving 2+ bilateral lower extremity edema SKIN * Warm and dry, no jaundice/rashes. NEUROMUSCULAR * No lumbar or midline, no CVA, no paraspinal muscle spasm or tenderness. * Moves all 4 extremities well, with full ROM and good CSM. * BHATT x4, CN II-XII grossly intact. * No focal neurologic deficits. PSYCHIATRY * Normal mood and affect, cooperative, no SI or HI or hallucinations. Objective Labs 10/08/24 04:21 10/08/24 04:21 Labs: Laboratory Results - last 24 hr 10/08/24 04:21 WBC 6.3 RBC 2.74 L Hgb 8.0 L Hct 22.9 L MCV 84 MCH 29.2 MCHC 34.9 RDW Std Deviation 40.2 Plt Count 209 Neut % (Auto) 60 Lymph % (Auto) 21 [place] % (Auto) 14 H Eos % (Auto) 4 Baso % (Auto) 1 Neut # (Auto) 3.8 Lymph # (Auto) 1.3 [place] # (Auto) 0.9 H Eos # (Auto) 0.2 Baso # (Auto) 0.0 Immature Gran # (Auto) 0.05 H Absolute Nucleated RBC 0.00 Immature Gran % 1 H Nucleated RBC % 0 Sodium 140 Potassium 3.7 Chloride 105 Carbon Dioxide 22.8 Anion Gap 12 BUN 61 H Creatinine 7.6 H* D Estim Creat Clear Calc 10.2 L eGFR 8 L* BUN/Creatinine Ratio 8 L Glucose 139 H Calculated Osmolality 298 H Calcium 6.8 L* Corrected Calcium 8.0 L Phosphorus 6.0 H Magnesium 1.9 Total Bilirubin < 0.2 L AST < 8 ALT < 7 L Alkaline Phosphatase 85 Total Protein 4.2 L Albumin 2.5 L Globulin 1.7 L Albumin/Globulin Ratio 1.5 Hep Bs Antigen Non Reactive ABG Interpretation ABG results: 10/05/24 12:16 ABG pH 7.32 L ABG pCO2 31 L ABG pO2 101 ABG HCO3 16 L ABG O2 Saturation 99 H ABG Base Excess -9 L Quality Measures Quality Measures VTE prophylaxis (SCDs) Assessment & Plan Assessment Current Active Medications: Generic Name Dose Route Start Last Admin Trade Name Freq PRN Reason Stop Dose Admin Acetaminophen 650 mg 10/05/24 17:00 Acetaminophen 325 Mg Tablet PO 11/04/24 16:59 Q6H PRN Pain 1-3 and/or Fever >100.1 Bumetanide 2 mg 10/06/24 17:45 10/07/24 08:48 Bumetanide Inj 0.25 Mg/Ml Vial 4 Ml IVP 11/05/24 17:44 2 mg QDAY MARNI Administration Calcitriol 0.5 mcg 10/08/24 09:00 Calcitriol 0.25 Mcg Capsule PO 11/07/24 08:59 QDAY MARNI Calcium Carbonate 600 mg 10/06/24 09:45 10/07/24 12:14 Calcium Carbonate 600 Mg Tablet PO 11/05/24 09:44 Not Given QDAY MARNI Carvedilol 3.125 mg 10/08/24 17:30 Carvedilol 3.125 Mg Tablet PO 11/07/24 17:29 BIDWM MARNI Dextrose 25 ml 10/05/24 17:18 Dextrose 50%-Water Inj 50 Ml Syringe IV 11/04/24 17:17 Q15MIN PRN BG 50-70 responsive npo pt Dextrose 50 ml 10/05/24 17:18 Dextrose 50%-Water Inj 50 Ml Syringe IV 11/04/24 17:17 Q15MIN PRN BG <50 OR BG <70 & pt unresponsive Famotidine 10 mg 10/06/24 14:30 10/07/24 08:49 Famotidine 20 Mg Tablet PO 11/05/24 14:29 10 mg QDAY MARNI Administration Glucagon 1 mg 10/05/24 17:18 Glucagon Inj 1 Mg Vial IM Q15MIN PRN BG <70, and no IV access Heparin Sodium (Porcine) 3,800 unit 10/07/24 12:35 10/08/24 10:38 Heparin Sod Inj 1000 Unit/Ml Vial 10 Ml INDWELLCAT 10/21/24 12:34 3,800 unit PRN PRN Administration DIALYSIS Ceftriaxone Sodium/Dextrose 1 gm in 50 mls @ 100 mls/hr 10/05/24 18:15 10/07/24 10:07 Rocephin/D5w 1gm Iv Premix IV 10/12/24 18:14 Infused QDAY MARNI Infusion Albumin Human 25 gm in 100 mls @ 100 mls/min 10/07/24 12:35 Albuminar-25 Ivpb IV 10/10/24 12:34 PRN PRN dialysis Insulin Human Lispro 0 unit 10/05/24 17:30 10/08/24 05:36 Insulin Lispro (Admelog) 1 Unit/0.01 Ml Unit SC 11/04/24 17:29 Not Given Q6HR MARNI Protocol Labetalol HCl 10 mg 10/07/24 17:20 10/08/24 05:14 Labetalol Inj 5 Mg/Ml Vial 20 Ml IVP 11/04/24 17:22 10 mg Q2H PRN Administration SBP > 170 and HR > 70 Lactulose 10 gm 10/08/24 10:44 Lactulose Syrup 20 Gm/30 Ml Udc PO 11/05/24 13:59 TID PRN constipation Protocol Nifedipine 60 mg 10/08/24 09:15 10/08/24 09:37 Nifedipine Xl 30 Mg Tabcr PO 11/07/24 09:14 60 mg QDAY MARNI Administration Ondansetron HCl 4 mg 10/05/24 17:00 10/05/24 19:30 Ondansetron Inj 2 Mg/Ml Inj 2 Ml IVP 11/04/24 16:59 4 mg Q6H PRN Administration NAUSEA OR VOMITING Protocol Oxycodone/Acetaminophen 1 tab 10/05/24 17:00 Oxycodone/Apap 5/325 Tablet PO 10/10/24 16:59 Q6H PRN PAIN SCALE 4-6 (Moderate Sennosides 1 tab 10/05/24 17:00 Senna Tablet PO 11/04/24 16:59 QDAY PRN constipation Protocol Sevelamer Carbonate 800 mg 10/06/24 12:00 10/08/24 07:43 Sevelamer Carbonate 800 Mg Tablet PO 11/05/24 11:59 800 mg TIDWM MARNI Administration Simethicone 80 mg 10/06/24 09:43 Simethicone 80 Mg Chew PO 11/05/24 09:42 QID PRN GAS Valsartan 160 mg 10/08/24 21:00 Valsartan 80 Mg Tablet PO 11/07/24 20:59 BID MARNI Vitamin B Complex/Vit C/Folic Acid 1 tab 10/06/24 17:45 10/07/24 12:14 Vit B12/Vit C/Fa (Nephrovite) Tablet PO 11/05/24 17:44 Not Given QDAY MARNI Plan 49-year-old male with PMHx of HTN, gastritis, T2DM, admitted 10/05 for abdominal discomfort and nausea, found to have hypertensive emergency BP 219/122. Currently being worked up for GILLIAN with CR 9.1, and liver cirrhosis. GILLIAN on CKD 2/2 diabetic/hypertensive nephrosclerosis Nephrotic range proteinuria Presenting with creatinine 9.4, BUN 79, GFR 6. Denies history of kidney disease. Initially suspected dehydration given history of vomiting, however he responded poorly to IVF, urine output remains poor, has worsening bilateral lower extremity edema. Uric acid 9.5. UA showing nephrotic range proteinuria with 3+ protein, 3+ GLUCOSE, 2+ RBCs, microalbumin greater than 380, protein 1570, MCR 369. FENA calculated at 1.4, suggest intrinsic versus prerenal. Urine sodium 22.8 and BUN to creatinine is low, less likely hepatorenal. Urine GLUCOSE elevated, normal serum GLUCOSE, tubulointerstitial disease, also may be diabetic nephropathy or longstanding untreated hypertension. Urine output remains poor despite aggressive diuresis. Will have next session of HD today, plan to remove another 2 L fluids. ? Continue inpatient HD ? Continue BUMEX 2 mg daily ? Fluid restriction 1500 cc daily ? Strict LARISSA's Hypertensive emergency (imporved) HTN in setting of ARF/ increased RAAS response Admission BP 219/122, possibly chronically untreated hypertension vs. volume overload. CT head was negative for acute pathology. BP remains elevated despite NICARDIPINE 20 BID (discontinued), VALSARTAN 160 daily. Medications change per nephrology recommendations as below: ? Continue NIFEDIPINE 60 mg XL daily ? Continue COREG 3.125 mg BID ? Continue VALSARTAN 160 mg BID ? Continue LABETALOL PRN if BP greater than 170 after meds Decompensated liver cirrhosis, unspecified etiology CT showed cirrhosis, fatty infiltrate with mild ascites. ALBUMIN 2.5, TB 0.2, LFTs low. Denies history of alcohol use. No signs or symptoms of of hepatic encephalopathy. Child-Vila 9, Class B - indication for transplant evaluation. Maddrey's score neagative value - good prognosis. ? Hep panel was negative. ? Pending full cirrhosis workup ? Continue CEFTRIAXONE SBP prophylaxis (10/05 to 10/12) Acute GI bleed anemia Normocytic anemia, iron deficiency vs. anemia of chronic disease Hgb 9.8 > 7.7 > 8.0, reticulocyte elevated 1.7, normal coags, positive FOBT. Iron 48, low, TIBC 230 low, iron saturation borderline low at 20. GI following, planning for endoscopy tomorrow 10/08/2024 ? N.p.o. after midnight ? Pending EGD on 10/08/2024 ? Transfuse if Hgb less than 7 IDDM type II A1c 5.7, GLUCOSE relatively normal. ? INSULIN sliding scale ? Accu-Cheks Metabolic acidosis (resolved) Anion gap 17, ABG pH 7.32, pCO2 31, bicarb 16. Likely AGMA (uremic), with mixed NAGMA (RTA 2 or 4), with appropriate respiratory compensation. ? Treating underlying cause as above NSTEMI, likely type II, demand ischemia (stable) Small pericardial effusion, likely uremic (stable) Peak troponin 0.352. EKG sinus rhythm with possible left atrial enlargement and nonspecific ST abnormalities. CT showed small pericardial effusion. May possibly be urinary pericarditis, given elevated BUN, however he denies chest pain. ECHO showed small pericardial effusion noted without any evidence of any cardiac tamponade, dilated IVC, normal LV size and function, EEF 55 to 60%, Grade 1 diastolic dysfunction, Normal RV size and function, Estimated RVSP mildly elevated at 40-45 mmHg, Mild MR and TR, Mild to moderately dilated LA. ? Small effusion will likely resolve spontaneously. ? No plan for intervention from cardiology. Hypocalcemia (improving) Hyperphosphatemia (improving) Corrected calcium 8.2, phosphorus 7.1. ? CALCIUM CARBONATE 600 mg q. day ? SEVELAMER 800 mg TID ? Daily labs Abdominal bloating (resolved) in setting of: Mild small bowel ileus Plan abdominal distention since morning, KUB showed mild SB ileus. ? Started LACTULOSE 10 mg TID ? Started SIMETHICONE PRN for bloating Health maintenance Diet: Renal diet GI prophylaxis: FAMOTIDINE, LACTULOSE PRN DVT prophylaxis: SCD Antibiotics: CEFTRIAXONE CODE STATUS: Full code Disposition: Pending hemodialysis, GI and cardiology recommendations Case was discussed with attending physician and senior resident. Geovanna Craig DO PGYI Attending Provider Attestation/Addendum I have discussed and was present for the essential components of the history, physical examination, diagnosis, and treatment plan with the resident. I agree with the patient's care as documented by the resident and amended herein by me. Fletcher Leung DO. No acute events overnight, BP elevated the morning 172/95 mmHg, I/Os 770/500 mL. BUN 61, creatinine 7.6 today. EGD is pending today, hemodialysis per nephrology. BP meds adjusted, valsartan 160 mg daily and nifedipine 60 mg daily are on board. Will also continue Bumex, ceftriaxone and start Coreg 3.125 mg p.o. twice daily per nephrology recommendations. Hemodialysis chair pending, appreciate all specialist recommendations. Although this document has been carefully reviewed, there may still be some phonetic and other typographical errors. These errors are purely grammatical due to imperfections in the software program and should not be construed in any way to compromise the substance of the patient's medical care during this visit.
[2024-10-08] MEDS: CALCIUM CARBONATE 600 MG TABLET PO (11:32)
[2024-10-08] MEDS: CALCITRIOL 0.25 mCg CAPSULE 0.5 MCG PO (11:32)
[2024-10-08] MEDS: VIT B12/Vit C/FA (Nephrovite) TABLET 1 TAB PO (11:32)
[2024-10-08] MEDS: FAMOTIDINE 20 MG TABLET 10 MG PO (11:33)
[2024-10-08] MEDS: cefTRIAXone/D5w 1gm IV premix 1 GM/50 ML BAG IV (11:34)
--- NOTE | 2024-10-08 20:12 | SUR.PHASEI ---
2012: Pt. AAOx4, vitals stable, breathing unlabored, no complaint of pain or nausea, no dressing in place, no active bleed noted, report received from Bertha TUCKER.
--- NOTE | 2024-10-08 20:35 | SUR.PHASEI ---
2035: Pt. AAOx4, vitals stable, breathing unlabored, no complaint of pain or nausea, no dressing in place, no active bleed noted, gave report to Gavi TUCKER prior to transfer to room 260.
[2024-10-08] MEDS: carVEDILOL 3.125 MG TABLET PO (20:41)
[2024-10-08] MEDS: VALSARTAN 80 MG TABLET 160 MG PO (20:42)
[2024-10-09] VITALS (27 sets, daily range): BP systolic 113–173; BP diastolic 68–94; PULSE 68–90; RESP 14–20; TEMP 36.2–37; O2SAT 95–99; BMI 29.8
--- NOTE | 2024-10-09 07:02 | PD.RESPRO ---
Documentation for date of: 10/09/24 Subjective Subjective Interval history: Interval history: Informant Sister Radha, patient multineedle shirrer Katalina, team member. Mr. Cardenas is a 49-year-old male with past medical history of hypertension x 20 years, gastritis, type 2 diabetes x8 yrs, noncompliant and does not follow-up with a primary care physician for several years presenting to the ED on 10/05/2024 with several days of abdominal discomfort and nausea. Patient was vacationing in [place] to visit his sister. He is from [place]. patient has not been eating well for the past week or so and has been having chills on and off. Patient does not take any home medications at this time but has been told in the past that he has kidney problems, high blood pressure and diabetes. Patient denies any sick contacts or recent travel; moreover, denies having any chest pain, palpitations but does state that he periodically gets blurry vision, headaches and dizziness. Sister noticed that he is having some swelling in the lower extremities. Home medications apparently was on insulin but not taking. Denies any alcohol, smoking, illicit drug use. In the ED, patient presented hypertensive emergency with systolic blood pressure 219 and diastolic 122, heart rate 98, respiratory 20, afebrile satting 100 on room air. Pertinent lab findings included WBC 9.9, hemoglobin 10.8 with MCV of 83, ABG showed pH of 7.32, [id number], [id number] and bicarb of 16. Patient has acute renal failure with a BUN of 79, creatinine 9.4 and anion gap of 17, lactic acid 1.0, troponin 0.252, BNP 786. Chest x-ray shows mild vascular congestion, EKG shows sinus rhythm with possible left atrial enlargement and nonspecific ST changes, CT abdomen pelvis showed cirrhosis, mild ascites. Dr. Vincent was consulted-patient seems to have AYALA Patient was admitted for hypertensive emergency, acute renal failure and renal consultation requested for need for dialysis. 10/06/2024 Katalina telemonitor is a multineedle shirrer. Sister Radha at bedside. Labs/medications reviewed. Blood pressure 190/121-on labetalol IV. Blood sugar 138. Hemoglobin 8.0, platelets 241. Sodium 142, potassium 4, chloride 108, bicarbonate 17, anion gap 17, BUN 75, creatinine 9.1, glucose 129, uric acid 9.5, calcium 8, phosphorus 7.2, ferritin 182, iron saturation 20, LFTs normal, troponin 0.2, albumin 2.5, triglycerides 284, LDL 89, urinalysis significant proteinuria. Urine protein/creatinine 15.5 g. Urine anion gap 35. Had a long conversation with the patient and sister that despite medical management he did not improve his kidney function. He will need dialysis. No role for biopsy due to his underlying longstanding poorly controlled hypertension and diabetes for years. Patient and sister had several questions. More than 45 minutes were spent and finally they agreed for dialysis. Will plan for dialysis in a.m. 10/07/24 patient was seen at bedside, questions and concerns were answered in detail, blood pressure 149/81, scheduled for dialysis catheter placement today. Urine output 450 mL overnight, positive fluid balance 1200 mL. Plan for hemodialysis after tunneled cath. BUN 72, creatinine 9.0, EGFR 7. Sodium 140, potassium 4.0, chloride 110, bicarb 17.1. 10/08/2024: Patient seen and examined at bedside this morning. No acute overnight events. Patient with approximately 500 cc urine output. Vitals, labs reviewed. Patient remains hypertensive with SBP 170?200, on nicardipine and valsartan with as needed labetalol. Recommend to change nicardipine to nifedipine XL upon discharge, and increased valsartan to 320 mg. Recommend adding a beta-derek as HR and BP can tolerate. Hemoglobin stable at 8; no signs of bleed at this time. Can continue with Epo at HD. Panel showing improvement in bicarb & creatinine. Will continue with hemodialysis. Corrected calcium 8.0, phosphorus 6.0. Pending alpha-1 antitrypsin, ceruloplasmin. At bedside, patient states he is fatigued and tired. He was scheduled for an EGD today however states he would like to do it at a later time. 10/09/2024: Patient seen and examined at bedside. No acute overnight events. Vitals stable, with improvement in BP on adjusted antihypertensive regimen. CBC stable, chem panel pending. Will continue with day 3 HD. PPD negative, pending outpatient chair. Patient in better spirits today. Exam Vital Signs Temp Pulse Resp BP Pulse Ox O2 Del Method O2 Flow Rate 97.1 F 76 15 130/80 97 Room Air 3 10/09/24 04:00 10/09/24 04:00 10/09/24 04:00 10/09/24 04:00 10/09/24 04:00 10/09/24 04:00 10/08/24 20:05 Narrative Exam Gen: AAOx3, in moderate distress, appears pleasant HEENT: NCAT, PERRLA, EOMI, MMM, facial edema improving; R IJ cath noted CVS: normal S1, S2. RRR. No MRG Resp: CTA B/L. No rhonchi, rales, crackles or wheezing Abd: soft, non-tender, non-distended. BS+ in all 4 quadrants MSK: Good ROM in BUE & BLE. Pitting edema improving Neuro: CN II-XII grossly intact. no focal deficits appreciated Objective Labs 10/09/24 07:38 10/09/24 07:38 Labs: Laboratory Results - last 24 hr 10/08/24 04:21 Hep Bs Antigen Non Reactive ABG Interpretation ABG results: 10/05/24 12:16 ABG pH 7.32 L ABG pCO2 31 L ABG pO2 101 ABG HCO3 16 L ABG O2 Saturation 99 H ABG Base Excess -9 L Quality Measures Quality Measures VTE prophylaxis (SCDs) Assessment & Plan Assessment Current Active Medications: Generic Name Dose Route Start Last Admin Trade Name Freq PRN Reason Stop Dose Admin Acetaminophen 650 mg 10/05/24 17:00 Acetaminophen 325 Mg Tablet PO 11/04/24 16:59 Q6H PRN Pain 1-3 and/or Fever >100.1 Bumetanide 2 mg 10/06/24 17:45 10/08/24 11:15 Bumetanide Inj 0.25 Mg/Ml Vial 4 Ml IVP 11/05/24 17:44 Not Given QDAY MARNI Calcitriol 0.5 mcg 10/08/24 09:00 10/08/24 11:32 Calcitriol 0.25 Mcg Capsule PO 11/07/24 08:59 0.5 mcg QDAY MARNI Administration Calcium Carbonate 600 mg 10/06/24 09:45 10/08/24 11:32 Calcium Carbonate 600 Mg Tablet PO 11/05/24 09:44 600 mg QDAY MARNI Administration Carvedilol 3.125 mg 10/08/24 17:30 10/08/24 20:41 Carvedilol 3.125 Mg Tablet PO 11/07/24 17:29 3.125 mg BIDWM MARNI Administration Dextrose 25 ml 10/05/24 17:18 Dextrose 50%-Water Inj 50 Ml Syringe IV 11/04/24 17:17 Q15MIN PRN BG 50-70 responsive npo pt Dextrose 50 ml 10/05/24 17:18 Dextrose 50%-Water Inj 50 Ml Syringe IV 11/04/24 17:17 Q15MIN PRN BG <50 OR BG <70 & pt unresponsive Famotidine 10 mg 10/06/24 14:30 10/08/24 11:33 Famotidine 20 Mg Tablet PO 11/05/24 14:29 10 mg QDAY MARNI Administration Glucagon 1 mg 10/05/24 17:18 Glucagon Inj 1 Mg Vial IM Q15MIN PRN BG <70, and no IV access Heparin Sodium (Porcine) 3,800 unit 10/07/24 12:35 10/08/24 10:38 Heparin Sod Inj 1000 Unit/Ml Vial 10 Ml INDWELLCAT 10/21/24 12:34 3,800 unit PRN PRN Administration DIALYSIS Ceftriaxone Sodium/Dextrose 1 gm in 50 mls @ 100 mls/hr 10/05/24 18:15 10/08/24 19:09 Rocephin/D5w 1gm Iv Premix IV 10/12/24 18:14 Infused QDAY MARNI Infusion Albumin Human 25 gm in 100 mls @ 100 mls/min 10/07/24 12:35 Albuminar-25 Ivpb IV 10/10/24 12:34 PRN PRN dialysis Insulin Human Lispro 0 unit 10/08/24 21:00 10/08/24 21:27 Insulin Lispro (Admelog) 1 Unit/0.01 Ml Unit SC 11/07/24 20:59 Not Given ACHS MARNI Protocol Labetalol HCl 10 mg 10/07/24 17:20 10/08/24 11:45 Labetalol Inj 5 Mg/Ml Vial 20 Ml IVP 11/04/24 17:22 10 mg Q2H PRN Administration SBP > 170 and HR > 70 Lactulose 10 gm 10/08/24 10:44 Lactulose Syrup 20 Gm/30 Ml Udc PO 11/05/24 13:59 TID PRN constipation Protocol Nifedipine 60 mg 10/08/24 09:15 10/08/24 09:37 Nifedipine Xl 30 Mg Tabcr PO 11/07/24 09:14 60 mg QDAY MARNI Administration Ondansetron HCl 4 mg 10/05/24 17:00 10/05/24 19:30 Ondansetron Inj 2 Mg/Ml Inj 2 Ml IVP 11/04/24 16:59 4 mg Q6H PRN Administration NAUSEA OR VOMITING Protocol Oxycodone/Acetaminophen 1 tab 10/05/24 17:00 Oxycodone/Apap 5/325 Tablet PO 10/10/24 16:59 Q6H PRN PAIN SCALE 4-6 (Moderate Sennosides 1 tab 10/05/24 17:00 Senna Tablet PO 11/04/24 16:59 QDAY PRN constipation Protocol Sevelamer Carbonate 800 mg 10/06/24 12:00 10/08/24 17:18 Sevelamer Carbonate 800 Mg Tablet PO 11/05/24 11:59 Not Given TIDWM MARNI Simethicone 80 mg 10/06/24 09:43 Simethicone 80 Mg Chew PO 11/05/24 09:42 QID PRN GAS Valsartan 160 mg 10/08/24 21:00 10/08/24 20:42 Valsartan 80 Mg Tablet PO 11/07/24 20:59 160 mg BID MARNI Administration Vitamin B Complex/Vit C/Folic Acid 1 tab 10/06/24 17:45 10/08/24 11:32 Vit B12/Vit C/Fa (Nephrovite) Tablet PO 11/05/24 17:44 1 tab QDAY MARNI Administration Plan #Worsening CKD #ESRD #Secondary hyperparathyroidism #Hypocalcemia #Anion gap metabolic acidosis, resolved, likely secondary to underlying renal failure Patient transitioning to ESRD, on HD day 3. Likely secondary to uncontrolled hypertension and diabetes Continue HD, calcium carbonate, phosphate binders, Nephro-Kandy, and calcitriol Hepatitis panel negative; PPD negative Pending outpatient chair #Uncontrolled hypertension #Hypertensive emergency, improved SBP has improved; 130-150s Continue current antihypertensive regimen: Nifedipine, Valsartan, Coreg and prn labetalol #Diabetes mellitus SSI, Accu-Cheks every 6 hours #Concern for pericarditis CT abdomen pelvis showed pericardial effusion, concern for pericarditis,, echocardiogram showed small pericardial effusion without any evidence of cardiac tamponade. Noted dilated IVC. Possibly uremic pericarditis Continue with hemodialysis #Anemia of chronic disease #Iron deficiency anemia #Concern for GI bleed Decreased iron stores on labs, serum iron 48, TIBC 230. Likely multifactorial due to anemia of chronic disease and iron deficiency. Patient received IV ferumoxytol and Procrit => can consider continuing Procrit with HD +FOBT, GI following EGD: esophagitis, biopsies sent #Hyperlipidemia Continue Lipitor Patient seen and care discussed with my attending Dr. Clark. Baljinder Mora MD PGY-3 Attending Provider Attestation/Addendum Patient seen and examined with resident physician Dr. Mora. Note reviewed, agree with findings and recommendations. Patient currently seen on dialysis. Tolerating dialysis without any problems. Hemodialysis for 3 hours, 2K, ultrafiltration 2 L, Epogen 6000, no heparin ordered. Plan of care discussed with the dialysis nurse. Please see dialysis flowsheet for further details. Patient received 3 dialysis sessions. Outpatient dialysis pending. Renal stone stable for discharge once arrangements done Patient is feeling much better.
[2024-10-09] MEDS: INSULIN LISPRO (AdmeLOG) 1 UNIT/0.01 ML UNIT SC ×2 (07:37→20:26)
[2024-10-09] MEDS: SEVELAMER CARBONATE 800 MG TABLET PO ×3 (07:37→17:18)
[2024-10-09 08:13] LABS: Basophils # (Auto) 0.1 Thou/mm3 (0.0-0.2); Basophils % (Auto) 1 % (0-2.5); Eosinophils # (Auto) 0.4 Thou/mm3 (0.0-0.5); Eosinophils % (Auto) 5 % (0-10); Hematocrit 24.1 % (41.0-53.0); Immature Granulocytes % (Auto) 2 % (0-0); Immature Granulocytes Auto 0.14 Thou/mm3 (0.00-0.00); Lymphocytes # (Auto) 1.2 Thou/mm3 (1.0-4.8); Lymphocytes % (Auto) 16 % (10-50); Mean Corpuscular HGB Conc 35.7 g/dl (31.0-37.0); Mean Corpuscular Hemoglobin 29.2 pg (25.0-35.0); Mean Corpuscular Volume 82 fL (80-100); Monocytes # (Auto) 0.8 Thou/mm3 (0.0-0.8); Monocytes % (Auto) 10 % (0-12); Neutrophils # (Auto) 5.1 Thou/mm3 (1.8-7.7); Neutrophils % (Auto) 67 % (37-80); Nucleated Red Blood Cell # 0.03 Thou/mm3 (0.00-0.00); Nucleated Red Blood Cell % 0 /100 WBC (0); Platelet Count 220 Thou/mm3 (140-440); RDW Standard Deviation 39.8 fL (35.1-43.9); Red Blood Count 2.95 Miln/mm3 (4.50-5.90); White Blood Count 7.7 Thou/mm3 (3.8-10.6)
[2024-10-09 08:21] LABS: Hemoglobin 8.6 g/dL (13.5-16.0)
[2024-10-09 08:43] LABS: Alanine Aminotransferase < 7 U/L (10-49); Albumin, Serum 2.7 gm/dL (3.5-5.0); Albumin/Globulin Ratio 1.6 (1.2-2.2); Alkaline Phosphatase 78 U/L (46-116); Anion Gap 12 (7-16); Aspartate Amino Transferase < 8 U/L (0-34); BUN/Creatinine Ratio 6 Ratio (12-20); Bilirubin,Total 0.2 mg/dL (0.3-1.2); Blood Urea Nitrogen 40 mg/dL (9-23); Calcium 7.3 mg/dL (8.3-10.6); Calcium (Corrected) 8.3 mg/dL (8.5-10.1); Carbon Dioxide 24.2 mMol/L (20.0-31.0); Chloride 102 mMol/L (98-107); Creatinine (Component) 6.2 mg/dL (0.6-1.3); Estimated Creatinine Clearance 12.5 mL/min (>60); Globulin 1.7 gm/dL (2.3-3.5); Glucose 206 mg/dL (74-106); Osmolality,Calculated 291 (275-295); Potassium 3.8 mMol/L (3.4-5.1); Sodium 138 mMol/L (136-145); Total Protein 4.4 gm/dL (5.7-8.2); eGFR 10 See Note
--- NOTE | 2024-10-09 09:34 | PC.SS ---
Follow up note: SS submitted the remaining documents with 3rd session dialysis including TB results. SS spoke to Vicenta at [facility] and she states they have all information and most likely they will have a chair time given by tomorrow. Patient is ready for d/c. Can d/c by tomorrow home with sister. SS phoned patient's sister to confirm that patient will be able to d/c home with her. Sister confirmed d/c plans. She confirmed she will transport patient to dialysis. SS explained to follow up with [facility] and pick a managed plan. Once this is completed, it will cover transportation costs. D/c address: [address], [facility] [address]
[2024-10-09] MEDS: EPOETIN ALFA-EPBX INJ 10,000 UNIT/ML VIAL (ESRD) 10000 UNIT SC (10:40)
[2024-10-09] MEDS: carVEDILOL 3.125 MG TABLET PO ×2 (12:03→17:18)
[2024-10-09] MEDS: BUMETANIDE INJ 0.25 MG/ML VIAL 4 ML 2 MG IVP (12:03)
[2024-10-09] MEDS: FAMOTIDINE 20 MG TABLET 10 MG PO (12:04)
[2024-10-09] MEDS: VALSARTAN 80 MG TABLET 160 MG PO ×2 (12:04→20:13)
[2024-10-09] MEDS: VIT B12/Vit C/FA (Nephrovite) TABLET 1 TAB PO (12:05)
[2024-10-09] MEDS: NIFEdipine XL 30 MG TABCR 60 MG PO (12:05)
[2024-10-09] MEDS: CALCITRIOL 0.25 mCg CAPSULE 0.5 MCG PO (12:05)
[2024-10-09] MEDS: CALCIUM CARBONATE 600 MG TABLET PO (12:05)
--- NOTE | 2024-10-09 12:55 | ESPR_ITS ---
<Statement entered by Kt Saavedar MD - 10/10/24 07:14> I discussed with and supervised the staff internist office based only physician involved in the care of this patient. Patient assessment and plan was discussed with entire medicine team, including my attending. I agree with the assessment and plan as documented by staff internist office based only doctor. Patient care was discussed with my attending physician Dr. Xochitl Saavedra, PGY-2 Documentation for date of: 10/09/24 Subjective Subjective Interval history: No acute overnight events. Denies any symptoms of worsening symptoms. BP better controlled today. Had 2 sessions of HD, total 4 L removed. CR 6.2, BUN 40. CBC stable, Hgb slightly improved 8.6 today. EGD showed esophagitis, erythematous stomach mucosa, biopsy was obtained. Currently pending placement from dialysis chair. Exam Vital Signs Temp Pulse Resp BP Pulse Ox O2 Del Method O2 Flow Rate 97.3 F 81 20 157/89 H 97 Room Air 3 10/09/24 12:00 10/09/24 12:05 10/09/24 12:10/09/24 12:05 10/09/24 12:10/09/24 12:10/08/24 20:05 Narrative Exam Gen: AAOx3, in moderate distress HEENT: NCAT, PERRLA, EOMI, MMM, facial edema improving; R IJ cath noted CVS: normal S1, S2. RRR. No MRG Resp: CTA B/L. No rhonchi, rales, crackles or wheezing Abd: soft, non-tender, non-distended. BS+ in all 4 quadrants MSK: Good ROM in BUE & BLE. Pitting edema improving Neuro: CN II-XII grossly intact. no focal deficits appreciated Objective Labs 10/09/24 07:38 10/09/24 07:38 Labs: Laboratory Results - last 24 hr 10/09/24 10/09/24 10/09/24 07:38 07:38 07:38 WBC 7.7 RBC 2.95 L Hgb 8.6 L Hct 24.1 L MCV 82 MCH 29.2 MCHC 35.7 RDW Std Deviation 39.8 Plt Count 220 Neut % (Auto) 67 Lymph % (Auto) 16 [place] % (Auto) 10 Eos % (Auto) 5 Baso % (Auto) 1 Neut # (Auto) 5.1 Lymph # (Auto) 1.2 [place] # (Auto) 0.8 Eos # (Auto) 0.4 Baso # (Auto) 0.1 Immature Gran # (Auto) 0.14 H Absolute Nucleated RBC 0.03 H Immature Gran % 2 H Nucleated RBC % 0 Sodium Cancelled 138 Potassium Cancelled 3.8 Chloride Cancelled Carbon Dioxide Anion Gap BUN Creatinine Estim Creat Clear Calc eGFR BUN/Creatinine Ratio Glucose Calculated Osmolality Calcium Corrected Calcium Total Bilirubin AST ALT Alkaline Phosphatase Total Protein Albumin Globulin Albumin/Globulin Ratio 10/09/24 10/09/24 10/09/24 07:38 07:38 07:38 WBC RBC Hgb Hct MCV MCH MCHC RDW Std Deviation Plt Count Neut % (Auto) Lymph % (Auto) [place] % (Auto) Eos % (Auto) Baso % (Auto) Neut # (Auto) Lymph # (Auto) [place] # (Auto) Eos # (Auto) Baso # (Auto) Immature Gran # (Auto) Absolute Nucleated RBC Immature Gran % Nucleated RBC % Sodium Potassium Chloride 102 Carbon Dioxide Cancelled 24.2 Anion Gap Cancelled 12 BUN Cancelled Creatinine Estim Creat Clear Calc eGFR BUN/Creatinine Ratio Glucose Calculated Osmolality Calcium Corrected Calcium Total Bilirubin AST ALT Alkaline Phosphatase Total Protein Albumin Globulin Albumin/Globulin Ratio 10/09/24 10/09/24 10/09/24 07:38 07:38 07:38 WBC RBC Hgb Hct MCV MCH MCHC RDW Std Deviation Plt Count Neut % (Auto) Lymph % (Auto) [place] % (Auto) Eos % (Auto) Baso % (Auto) Neut # (Auto) Lymph # (Auto) [place] # (Auto) Eos # (Auto) Baso # (Auto) Immature Gran # (Auto) Absolute Nucleated RBC Immature Gran % Nucleated RBC % Sodium Potassium Chloride Carbon Dioxide Anion Gap BUN 40 H Creatinine Cancelled 6.2 H* D Estim Creat Clear Calc Cancelled 12.5 L eGFR Cancelled BUN/Creatinine Ratio Glucose Calculated Osmolality Calcium Corrected Calcium Total Bilirubin AST ALT Alkaline Phosphatase Total Protein Albumin Globulin Albumin/Globulin Ratio 10/09/24 10/09/24 10/09/24 07:38 07:38 07:38 WBC RBC Hgb Hct MCV MCH MCHC RDW Std Deviation Plt Count Neut % (Auto) Lymph % (Auto) [place] % (Auto) Eos % (Auto) Baso % (Auto) Neut # (Auto) Lymph # (Auto) [place] # (Auto) Eos # (Auto) Baso # (Auto) Immature Gran # (Auto) Absolute Nucleated RBC Immature Gran % Nucleated RBC % Sodium Potassium Chloride Carbon Dioxide Anion Gap BUN Creatinine Estim Creat Clear Calc eGFR 10 L* BUN/Creatinine Ratio Cancelled 6 L Glucose Cancelled 206 H D Calculated Osmolality Cancelled Calcium Corrected Calcium Total Bilirubin AST ALT Alkaline Phosphatase Total Protein Albumin Globulin Albumin/Globulin Ratio 10/09/24 10/09/24 07:38 07:38 WBC RBC Hgb Hct MCV MCH MCHC RDW Std Deviation Plt Count Neut % (Auto) Lymph % (Auto) [place] % (Auto) Eos % (Auto) Baso % (Auto) Neut # (Auto) Lymph # (Auto) [place] # (Auto) Eos # (Auto) Baso # (Auto) Immature Gran # (Auto) Absolute Nucleated RBC Immature Gran % Nucleated RBC % Sodium Potassium Chloride Carbon Dioxide Anion Gap BUN Creatinine Estim Creat Clear Calc eGFR BUN/Creatinine Ratio Glucose Calculated Osmolality 291 Calcium Cancelled 7.3 L Corrected Calcium 8.3 L Total Bilirubin 0.2 L AST < 8 ALT < 7 L Alkaline Phosphatase 78 Total Protein 4.4 L Albumin 2.7 L Globulin 1.7 L Albumin/Globulin Ratio 1.6 ABG Interpretation ABG results: 10/05/24 12:16 ABG pH 7.32 L ABG pCO2 31 L ABG pO2 101 ABG HCO3 16 L ABG O2 Saturation 99 H ABG Base Excess -9 L Quality Measures Quality Measures VTE prophylaxis (SCDs) Assessment & Plan Assessment Current Active Medications: Generic Name Dose Route Start Last Admin Trade Name Freq PRN Reason Stop Dose Admin Acetaminophen 650 mg 10/05/24 17:00 Acetaminophen 325 Mg Tablet PO 11/04/24 16:59 Q6H PRN Pain 1-3 and/or Fever >100.1 Bumetanide 2 mg 10/06/24 17:45 10/09/24 12:03 Bumetanide Inj 0.25 Mg/Ml Vial 4 Ml IVP 11/05/24 17:44 2 mg QDAY MARNI Administration Calcitriol 0.5 mcg 10/08/24 09:00 10/09/24 12:05 Calcitriol 0.25 Mcg Capsule PO 11/07/24 08:59 0.5 mcg QDAY MARNI Administration Calcium Carbonate 600 mg 10/06/24 09:45 10/09/24 12:05 Calcium Carbonate 600 Mg Tablet PO 11/05/24 09:44 600 mg QDAY MARNI Administration Carvedilol 3.125 mg 10/08/24 17:30 10/09/24 12:03 Carvedilol 3.125 Mg Tablet PO 11/07/24 17:29 3.125 mg BIDWM MARNI Administration Dextrose 25 ml 10/05/24 17:18 Dextrose 50%-Water Inj 50 Ml Syringe IV 11/04/24 17:17 Q15MIN PRN BG 50-70 responsive npo pt Dextrose 50 ml 10/05/24 17:18 Dextrose 50%-Water Inj 50 Ml Syringe IV 11/04/24 17:17 Q15MIN PRN BG <50 OR BG <70 & pt unresponsive Famotidine 10 mg 10/06/24 14:30 10/09/24 12:04 Famotidine 20 Mg Tablet PO 11/05/24 14:29 10 mg QDAY MARNI Administration Glucagon 1 mg 10/05/24 17:18 Glucagon Inj 1 Mg Vial IM Q15MIN PRN BG <70, and no IV access Heparin Sodium (Porcine) 3,800 unit 10/07/24 12:35 10/08/24 10:38 Heparin Sod Inj 1000 Unit/Ml Vial 10 Ml INDWELLCAT 10/21/24 12:34 3,800 unit PRN PRN Administration DIALYSIS Albumin Human 25 gm in 100 mls @ 100 mls/min 10/07/24 12:35 Albuminar-25 Ivpb IV 10/10/24 12:34 PRN PRN dialysis Insulin Human Lispro 0 unit 10/08/24 21:00 10/09/24 12:06 Insulin Lispro (Admelog) 1 Unit/0.01 Ml Unit SC 11/07/24 20:59 Not Given ACHS MARNI Protocol Labetalol HCl 10 mg 10/07/24 17:20 10/08/24 11:45 Labetalol Inj 5 Mg/Ml Vial 20 Ml IVP 11/04/24 17:22 10 mg Q2H PRN Administration SBP > 170 and HR > 70 Lactulose 10 gm 10/08/24 10:44 Lactulose Syrup 20 Gm/30 Ml Udc PO 11/05/24 13:59 TID PRN constipation Protocol Nifedipine 60 mg 10/08/24 09:15 10/09/24 12:05 Nifedipine Xl 30 Mg Tabcr PO 11/07/24 09:14 60 mg QDAY MARNI Administration Ondansetron HCl 4 mg 10/05/24 17:00 10/05/24 19:30 Ondansetron Inj 2 Mg/Ml Inj 2 Ml IVP 11/04/24 16:59 4 mg Q6H PRN Administration NAUSEA OR VOMITING Protocol Oxycodone/Acetaminophen 1 tab 10/05/24 17:00 Oxycodone/Apap 5/325 Tablet PO 10/10/24 16:59 Q6H PRN PAIN SCALE 4-6 (Moderate Sennosides 1 tab 10/05/24 17:00 Senna Tablet PO 11/04/24 16:59 QDAY PRN constipation Protocol Sevelamer Carbonate 800 mg 10/06/24 12:00 10/09/24 12:05 Sevelamer Carbonate 800 Mg Tablet PO 11/05/24 11:59 800 mg TIDWM MARNI Administration Simethicone 80 mg 10/06/24 09:43 Simethicone 80 Mg Chew PO 11/05/24 09:42 QID PRN GAS Valsartan 160 mg 10/08/24 21:00 10/09/24 12:04 Valsartan 80 Mg Tablet PO 11/07/24 20:59 160 mg BID MARNI Administration Vitamin B Complex/Vit C/Folic Acid 1 tab 10/06/24 17:45 10/09/24 12:05 Vit B12/Vit C/Fa (Nephrovite) Tablet PO 11/05/24 17:44 1 tab QDAY MARNI Administration Plan 49-year-old male with PMHx of HTN, gastritis, T2DM, admitted 10/05 for abdominal discomfort and nausea, found to have hypertensive emergency BP 219/122. Currently being worked up for GILLIAN with CR 9.1, and liver cirrhosis. GILLIAN on CKD 2/2 diabetic/hypertensive nephrosclerosis Nephrotic range proteinuria Presenting with creatinine 9.4, BUN 79, GFR 6. Denies history of kidney disease. Initially suspected dehydration given history of vomiting, however he responded poorly to IVF, urine output remains poor, has worsening bilateral lower extremity edema. Uric acid 9.5. UA showing nephrotic range proteinuria with 3+ protein, 3+ GLUCOSE, 2+ RBCs, microalbumin greater than 380, protein 1570, MCR 369. FENA calculated at 1.4, suggest intrinsic versus prerenal. Urine sodium 22.8 and BUN to creatinine is low, less likely hepatorenal. Urine GLUCOSE elevated, normal serum GLUCOSE, tubulointerstitial disease, also may be diabetic nephropathy or longstanding untreated hypertension. Urine output remains poor despite aggressive diuresis. Completed 2 HD sessions, total 4 L removed. Has another HD session today. Currently pending dialysis chair placement. ? Continue inpatient HD ? Continue BUMEX 2 mg daily ? Fluid restriction 1500 cc daily ? Strict LARISSA's Hypertensive emergency (improved) HTN in setting of ARF/ increased RAAS response Admission BP 219/122, possibly chronically untreated hypertension vs. volume overload. CT head was negative for acute pathology. BP remains elevated despite NICARDIPINE 20 BID (discontinued), VALSARTAN 160 daily. Medications change per nephrology recommendations as below: ? Continue NIFEDIPINE 60 mg XL daily ? Continue COREG 3.125 mg BID ? Continue VALSARTAN 160 mg BID ? Continue LABETALOL PRN if BP greater than 170 after meds Decompensated liver cirrhosis, unspecified etiology CT showed cirrhosis, fatty infiltrate with mild ascites. ALBUMIN 2.5, TB 0.2, LFTs low. Denies history of alcohol use. No signs or symptoms of of hepatic encephalopathy. Child-Vila 9, Class B - indication for transplant evaluation. Maddrey's score neagative value - good prognosis. ? Hep panel was negative. ? Pending full cirrhosis workup ? Continue CEFTRIAXONE SBP prophylaxis (10/05 to 10/12) Acute GI bleed anemia Normocytic anemia, iron deficiency vs. anemia of chronic disease Hgb 9.8 > 7.7 > 8.0, reticulocyte elevated 1.7, normal coags, positive FOBT. Iron 48, low, TIBC 230 low, iron saturation borderline low at 20. GI following, planning for endoscopy tomorrow 10/08/2024 CBC stable, Hgb improving 8.6 today. EGD 10/25/2024 showed esophagitis, erythematous stomach mucosa, biopsies were obtained (see report for more detail). ? N.p.o. after midnight ? Pending EGD on 10/08/2024 ? Transfuse if Hgb less than 7 ? Will need to follow-up with GI regarding EGD biopsies. IDDM type II A1c 5.7, GLUCOSE relatively normal. ? INSULIN sliding scale ? Accu-Cheks Metabolic acidosis (resolved) Anion gap 17, ABG pH 7.32, pCO2 31, bicarb 16. Likely AGMA (uremic), with mixed NAGMA (RTA 2 or 4), with appropriate respiratory compensation. ? Treating underlying cause as above NSTEMI, likely type II, demand ischemia (stable) Small pericardial effusion, likely uremic (stable) Peak troponin 0.352. EKG sinus rhythm with possible left atrial enlargement and nonspecific ST abnormalities. CT showed small pericardial effusion. May possibly be urinary pericarditis, given elevated BUN, however he denies chest pain. ECHO showed small pericardial effusion noted without any evidence of any cardiac tamponade, dilated IVC, normal LV size and function, EEF 55 to 60%, Grade 1 diastolic dysfunction, Normal RV size and function, Estimated RVSP mildly elevated at 40-45 mmHg, Mild MR and TR, Mild to moderately dilated LA. ? Small effusion will likely resolve spontaneously. ? No plan for intervention from cardiology. Hypocalcemia (improving) Hyperphosphatemia (improving) Corrected calcium 8.2, phosphorus 7.1. ? CALCIUM CARBONATE 600 mg q. day ? SEVELAMER 800 mg TID ? Daily labs Abdominal bloating (resolved) in setting of: Mild small bowel ileus Plan abdominal distention since morning, KUB showed mild SB ileus. ? Started LACTULOSE 10 mg TID ? Started SIMETHICONE PRN for bloating Health maintenance Diet: Renal diet GI prophylaxis: FAMOTIDINE, LACTULOSE PRN DVT prophylaxis: SCD Antibiotics: CEFTRIAXONE CODE STATUS: Full code Disposition: Pending hemodialysis, GI and cardiology recommendations Case was discussed with attending physician and senior resident. Geovanna Craig DO PGYI Attending Provider Attestation/Addendum I have discussed and was present for the essential components of the history, physical examination, diagnosis, and treatment plan with the resident. I agree with the patient's care as documented by the resident and amended herein by me. Fletcher Leung DO. Patient seen and evaluated this AM. No acute events overnight, vital signs stable, patient afebrile, CBC large unremarkable, BUN 61, creatinine slightly improved, 6.2 today. Hep panel negative, TB results also negative, hemodialysis chair pending, likely will be available tomorrow in which we can discharge the patient home. Patient did undergo EGD demonstrated esophagitis and gastric polyp, biopsies performed and are pending. Will continue Coreg, valsartan and nifedipine per nephrology, hemodialysis today, appreciate specialist recommendations. Although this document has been carefully reviewed, there may still be some phonetic and other typographical errors. These errors are purely grammatical due to imperfections in the software program and should not be construed in any way to compromise the substance of the patient's medical care during this visit.
--- NOTE | 2024-10-09 13:25 | PD.IMPROG ---
Documentation for date of: 10/09/24 Subjective Subjective Interval history: Patient evaluated Hemoglobin hematocrit 8.6 and 24.1 Upper endoscopy showed gastritis and esophagitis biopsies are pending Exam Vital Signs Temp Pulse Resp BP Pulse Ox O2 Del Method O2 Flow Rate 97.3 F 81 20 157/89 H 97 Room Air 3 10/09/24 12:00 10/09/24 12:05 10/09/24 12:00 10/09/24 12:05 10/09/24 12:00 10/09/24 12:00 10/08/24 20:05 Objective Labs 10/09/24 07:38 10/09/24 07:38 Labs: Laboratory Results - last 24 hr 10/09/24 10/09/24 10/09/24 07:38 07:38 07:38 WBC 7.7 RBC 2.95 L Hgb 8.6 L Hct 24.1 L MCV 82 MCH 29.2 MCHC 35.7 RDW Std Deviation 39.8 Plt Count 220 Neut % (Auto) 67 Lymph % (Auto) 16 [place] % (Auto) 10 Eos % (Auto) 5 Baso % (Auto) 1 Neut # (Auto) 5.1 Lymph # (Auto) 1.2 [place] # (Auto) 0.8 Eos # (Auto) 0.4 Baso # (Auto) 0.1 Immature Gran # (Auto) 0.14 H Absolute Nucleated RBC 0.03 H Immature Gran % 2 H Nucleated RBC % 0 Sodium Cancelled 138 Potassium Cancelled 3.8 Chloride Cancelled Carbon Dioxide Anion Gap BUN Creatinine Estim Creat Clear Calc eGFR BUN/Creatinine Ratio Glucose Calculated Osmolality Calcium Corrected Calcium Total Bilirubin AST ALT Alkaline Phosphatase Total Protein Albumin Globulin Albumin/Globulin Ratio 10/09/24 10/09/24 10/09/24 07:38 07:38 07:38 WBC RBC Hgb Hct MCV MCH MCHC RDW Std Deviation Plt Count Neut % (Auto) Lymph % (Auto) [place] % (Auto) Eos % (Auto) Baso % (Auto) Neut # (Auto) Lymph # (Auto) [place] # (Auto) Eos # (Auto) Baso # (Auto) Immature Gran # (Auto) Absolute Nucleated RBC Immature Gran % Nucleated RBC % Sodium Potassium Chloride 102 Carbon Dioxide Cancelled 24.2 Anion Gap Cancelled 12 BUN Cancelled Creatinine Estim Creat Clear Calc eGFR BUN/Creatinine Ratio Glucose Calculated Osmolality Calcium Corrected Calcium Total Bilirubin AST ALT Alkaline Phosphatase Total Protein Albumin Globulin Albumin/Globulin Ratio 10/09/24 10/09/24 10/09/24 07:38 07:38 07:38 WBC RBC Hgb Hct MCV MCH MCHC RDW Std Deviation Plt Count Neut % (Auto) Lymph % (Auto) [place] % (Auto) Eos % (Auto) Baso % (Auto) Neut # (Auto) Lymph # (Auto) [place] # (Auto) Eos # (Auto) Baso # (Auto) Immature Gran # (Auto) Absolute Nucleated RBC Immature Gran % Nucleated RBC % Sodium Potassium Chloride Carbon Dioxide Anion Gap BUN 40 H Creatinine Cancelled 6.2 H* D Estim Creat Clear Calc Cancelled 12.5 L eGFR Cancelled BUN/Creatinine Ratio Glucose Calculated Osmolality Calcium Corrected Calcium Total Bilirubin AST ALT Alkaline Phosphatase Total Protein Albumin Globulin Albumin/Globulin Ratio 10/09/24 10/09/24 10/09/24 07:38 07:38 07:38 WBC RBC Hgb Hct MCV MCH MCHC RDW Std Deviation Plt Count Neut % (Auto) Lymph % (Auto) [place] % (Auto) Eos % (Auto) Baso % (Auto) Neut # (Auto) Lymph # (Auto) [place] # (Auto) Eos # (Auto) Baso # (Auto) Immature Gran # (Auto) Absolute Nucleated RBC Immature Gran % Nucleated RBC % Sodium Potassium Chloride Carbon Dioxide Anion Gap BUN Creatinine Estim Creat Clear Calc eGFR 10 L* BUN/Creatinine Ratio Cancelled 6 L Glucose Cancelled 206 H D Calculated Osmolality Cancelled Calcium Corrected Calcium Total Bilirubin AST ALT Alkaline Phosphatase Total Protein Albumin Globulin Albumin/Globulin Ratio 10/09/24 10/09/24 07:38 07:38 WBC RBC Hgb Hct MCV MCH MCHC RDW Std Deviation Plt Count Neut % (Auto) Lymph % (Auto) [place] % (Auto) Eos % (Auto) Baso % (Auto) Neut # (Auto) Lymph # (Auto) [place] # (Auto) Eos # (Auto) Baso # (Auto) Immature Gran # (Auto) Absolute Nucleated RBC Immature Gran % Nucleated RBC % Sodium Potassium Chloride Carbon Dioxide Anion Gap BUN Creatinine Estim Creat Clear Calc eGFR BUN/Creatinine Ratio Glucose Calculated Osmolality 291 Calcium Cancelled 7.3 L Corrected Calcium 8.3 L Total Bilirubin 0.2 L AST < 8 ALT < 7 L Alkaline Phosphatase 78 Total Protein 4.4 L Albumin 2.7 L Globulin 1.7 L Albumin/Globulin Ratio 1.6 Impressions Impression: # Gastritis biopsies pending # Esophagitis biopsies pending # Continue current management ABG Interpretation ABG results: 10/05/24 12:16 ABG pH 7.32 L ABG pCO2 31 L ABG pO2 101 ABG HCO3 16 L ABG O2 Saturation 99 H ABG Base Excess -9 L Assessment & Plan A&P Narrative # Nausea vomiting epigastric pain could be related to patient's uremic syndrome however GI causes Needs to be ruled out Plan Gallbladder ultrasound # Patient does have normal liver function test and his cirrhosis is well compensated I will order a complete workup for the chronic active hepatitis Can follow the patient along We will consider doing an upper endoscopy if the symptoms of abdominal pain nausea vomiting continues Other medical problems include # GILLIAN on CKD # IDDM # Essential hypertension Thank you very much for the opportunity to participate in the care of this patient Time Spent With Patient Time: Total time spent is greater than 50% in coordination of care (as documented) at patient's floor/unit and/or counseling patient:
[2024-10-10] VITALS (12 sets, daily range): BP systolic 135–163; BP diastolic 70–91; PULSE 74–87; RESP 17–19; TEMP 36.1–36.9; O2SAT 95–98
[2024-10-10 06:13] LABS: Basophils # (Auto) 0.1 Thou/mm3 (0.0-0.2); Basophils % (Auto) 1 % (0-2.5); Eosinophils # (Auto) 0.5 Thou/mm3 (0.0-0.5); Eosinophils % (Auto) 6 % (0-10); Hematocrit 22.9 % (41.0-53.0); Hemoglobin 8.1 g/dL (13.5-16.0); Immature Granulocytes % (Auto) 1 % (0-0); Immature Granulocytes Auto 0.09 Thou/mm3 (0.00-0.00); Lymphocytes # (Auto) 1.7 Thou/mm3 (1.0-4.8); Lymphocytes % (Auto) 21 % (10-50); Mean Corpuscular HGB Conc 35.4 g/dl (31.0-37.0); Mean Corpuscular Hemoglobin 29.5 pg (25.0-35.0); Mean Corpuscular Volume 83 fL (80-100); Monocytes % (Auto) 11 % (0-12); Neutrophils # (Auto) 5.1 Thou/mm3 (1.8-7.7); Neutrophils % (Auto) 61 % (37-80); Nucleated Red Blood Cell # 0.14 Thou/mm3 (0.00-0.00); Nucleated Red Blood Cell % 2 /100 WBC (0); Platelet Count 243 Thou/mm3 (140-440); RDW Standard Deviation 40.4 fL (35.1-43.9); Red Blood Count 2.75 Miln/mm3 (4.50-5.90); White Blood Count 8.5 Thou/mm3 (3.8-10.6)
[2024-10-10 06:27] LABS: Alanine Aminotransferase < 7 U/L (10-49); Albumin, Serum 2.6 gm/dL (3.5-5.0); Anion Gap 10 (7-16); Aspartate Amino Transferase < 10 U/L (0-34); BUN/Creatinine Ratio 6 Ratio (12-20); Bilirubin,Total 0.2 mg/dL (0.3-1.2); Blood Urea Nitrogen 30 mg/dL (9-23); Calcium 7.2 mg/dL (8.3-10.6); Calcium (Corrected) 8.3 mg/dL (8.5-10.1); Carbon Dioxide 27.8 mMol/L (20.0-31.0); Chloride 103 mMol/L (98-107); Creatinine (Component) 5.1 mg/dL (0.6-1.3); Estimated Creatinine Clearance 14.8 mL/min (>60); Globulin 1.7 gm/dL (2.3-3.5); Glucose 159 mg/dL (74-106); Magnesium 1.8 mg/dL (1.6-2.6); Osmolality,Calculated 290 (275-295); Phosphorous 3.2 mg/dL (2.4-5.1); Potassium 3.8 mMol/L (3.4-5.1); Sodium 141 mMol/L (136-145); Total Protein 4.3 gm/dL (5.7-8.2); eGFR 13 See Note
[2024-10-10 06:28] LABS: Albumin/Globulin Ratio 1.5 (1.2-2.2); Alkaline Phosphatase 84 U/L (46-116)
[2024-10-10] MEDS: NIFEdipine XL 30 MG TABCR 60 MG PO (08:26)
[2024-10-10] MEDS: CALCIUM CARBONATE 600 MG TABLET PO (08:26)
[2024-10-10] MEDS: CALCITRIOL 0.25 mCg CAPSULE 0.5 MCG PO (08:26)
[2024-10-10] MEDS: SEVELAMER CARBONATE 800 MG TABLET PO ×3 (08:26→17:27)
[2024-10-10] MEDS: carVEDILOL 3.125 MG TABLET PO ×2 (08:26→17:27)
[2024-10-10] MEDS: VIT B12/Vit C/FA (Nephrovite) TABLET 1 TAB PO (08:26)
[2024-10-10] MEDS: FAMOTIDINE 20 MG TABLET 10 MG PO (08:27)
[2024-10-10] MEDS: VALSARTAN 80 MG TABLET 160 MG PO ×2 (08:27→20:29)
--- NOTE | 2024-10-10 09:12 | PC.SS ---
Follow up note: Patient new o/p dialysis schedule is every M/W/F @ 9:20-12:20 at [facility]. Nephrology wants to keep patient one more day to get dialysis treatment and discharge tomorrow. Patient will then start dialysis on Monday. Patient's sister will transport him to dialysis.
--- NOTE | 2024-10-10 09:21 | PD.RESPRO ---
Documentation for date of: 10/10/24 Subjective Subjective Interval history: Interval history: Informant Sister Radha, patient knitting inspector aKtalina, ekg monitor tech. Mr. Cardenas is a 49-year-old male with past medical history of hypertension x 20 years, gastritis, type 2 diabetes x8 yrs, noncompliant and does not follow-up with a primary care physician for several years presenting to the ED on 10/05/2024 with several days of abdominal discomfort and nausea. Patient was vacationing in [place] to visit his sister. He is from [place]. patient has not been eating well for the past week or so and has been having chills on and off. Patient does not take any home medications at this time but has been told in the past that he has kidney problems, high blood pressure and diabetes. Patient denies any sick contacts or recent travel; moreover, denies having any chest pain, palpitations but does state that he periodically gets blurry vision, headaches and dizziness. Sister noticed that he is having some swelling in the lower extremities. Home medications apparently was on insulin but not taking. Denies any alcohol, smoking, illicit drug use. In the ED, patient presented hypertensive emergency with systolic blood pressure 219 and diastolic 122, heart rate 98, respiratory 20, afebrile satting 100 on room air. Pertinent lab findings included WBC 9.9, hemoglobin 10.8 with MCV of 83, ABG showed pH of 7.32, [id number], [id number] and bicarb of 16. Patient has acute renal failure with a BUN of 79, creatinine 9.4 and anion gap of 17, lactic acid 1.0, troponin 0.252, BNP 786. Chest x-ray shows mild vascular congestion, EKG shows sinus rhythm with possible left atrial enlargement and nonspecific ST changes, CT abdomen pelvis showed cirrhosis, mild ascites. Dr. Vincent was consulted-patient seems to have AYALA Patient was admitted for hypertensive emergency, acute renal failure and renal consultation requested for need for dialysis. 10/06/2024 Katalina telemonitor is a knitting inspector. Sister Radha at bedside. Labs/medications reviewed. Blood pressure 190/121-on labetalol IV. Blood sugar 138. Hemoglobin 8.0, platelets 241. Sodium 142, potassium 4, chloride 108, bicarbonate 17, anion gap 17, BUN 75, creatinine 9.1, glucose 129, uric acid 9.5, calcium 8, phosphorus 7.2, ferritin 182, iron saturation 20, LFTs normal, troponin 0.2, albumin 2.5, triglycerides 284, LDL 89, urinalysis significant proteinuria. Urine protein/creatinine 15.5 g. Urine anion gap 35. Had a long conversation with the patient and sister that despite medical management he did not improve his kidney function. He will need dialysis. No role for biopsy due to his underlying longstanding poorly controlled hypertension and diabetes for years. Patient and sister had several questions. More than 45 minutes were spent and finally they agreed for dialysis. Will plan for dialysis in a.m. 10/07/24 patient was seen at bedside, questions and concerns were answered in detail, blood pressure 149/81, scheduled for dialysis catheter placement today. Urine output 450 mL overnight, positive fluid balance 1200 mL. Plan for hemodialysis after tunneled cath. BUN 72, creatinine 9.0, EGFR 7. Sodium 140, potassium 4.0, chloride 110, bicarb 17.1. 10/08/2024: Patient seen and examined at bedside this morning. No acute overnight events. Patient with approximately 500 cc urine output. Vitals, labs reviewed. Patient remains hypertensive with SBP 170?200, on nicardipine and valsartan with as needed labetalol. Recommend to change nicardipine to nifedipine XL upon discharge, and increased valsartan to 320 mg. Recommend adding a beta-derek as HR and BP can tolerate. Hemoglobin stable at 8; no signs of bleed at this time. Can continue with Epo at HD. Panel showing improvement in bicarb & creatinine. Will continue with hemodialysis. Corrected calcium 8.0, phosphorus 6.0. Pending alpha-1 antitrypsin, ceruloplasmin. At bedside, patient states he is fatigued and tired. He was scheduled for an EGD today however states he would like to do it at a later time. 10/09/2024: Patient seen and examined at bedside. No acute overnight events. Vitals stable, with improvement in BP on adjusted antihypertensive regimen. CBC stable, chem panel pending. Will continue with day 3 HD. PPD negative, pending outpatient chair. Patient in better spirits today. 10/10/2024: Patient seen and examined at bedside. No acute overnight events. Patient complains of feeling fatigued. This may be related to aggressive blood pressure control. Recommend to discontinue Bumex as patient is not making urine at this time. Plan to continue hemodialysis. Outpatient chair time has been set up for 9:20 AM to 12:20 PM on Saturday 10/14. Patient is stable for discharge on 10/11 after hemodialysis. Vitals stable, labs reviewed. Hemoglobin 8.1 noted. Exam Vital Signs Temp Pulse Resp BP Pulse Ox O2 Del Method O2 Flow Rate 98.3 F 75 17 159/70 H 95 Room Air 3 10/10/24 08:00 10/10/24 08:27 10/10/24 08:00 10/10/24 08:27 10/10/24 08:00 10/10/24 08:00 10/08/24 20:05 Narrative Exam Gen: AAOx3, in moderate distress, appears tired HEENT: NCAT, PERRLA, EOMI, MMM, facial edema improving; R IJ cath noted CVS: normal S1, S2. RRR. No MRG Resp: CTA B/L. No rhonchi, rales, crackles or wheezing Abd: soft, non-tender, non-distended. BS+ in all 4 quadrants MSK: Good ROM in BUE & BLE. Pitting edema resolved Neuro: CN II-XII grossly intact. no focal deficits appreciated Objective Labs 10/10/24 04:50 10/10/24 04:50 Labs: Laboratory Results - last 24 hr 10/10/24 04:50 WBC 8.5 RBC 2.75 L Hgb 8.1 L Hct 22.9 L MCV 83 MCH 29.5 MCHC 35.4 RDW Std Deviation 40.4 Plt Count 243 Neut % (Auto) 61 Lymph % (Auto) 21 Schuyler % (Auto) 11 Eos % (Auto) 6 Baso % (Auto) 1 Neut # (Auto) 5.1 Lymph # (Auto) 1.7 Schuyler # (Auto) 1.0 H Eos # (Auto) 0.5 Baso # (Auto) 0.1 Immature Gran # (Auto) 0.09 H Absolute Nucleated RBC 0.14 H Immature Gran % 1 H Nucleated RBC % 2 H Sodium 141 Potassium 3.8 Chloride 103 Carbon Dioxide 27.8 Anion Gap 10 BUN 30 H Creatinine 5.1 H* D Estim Creat Clear Calc 14.8 L eGFR 13 L* BUN/Creatinine Ratio 6 L Glucose 159 H Calculated Osmolality 290 Calcium 7.2 L Corrected Calcium 8.3 L Phosphorus 3.2 Magnesium 1.8 Total Bilirubin 0.2 L AST < 10 ALT < 7 L Alkaline Phosphatase 84 Total Protein 4.3 L Albumin 2.6 L Globulin 1.7 L Albumin/Globulin Ratio 1.5 ABG Interpretation ABG results: 10/05/24 12:16 ABG pH 7.32 L ABG pCO2 31 L ABG pO2 101 ABG HCO3 16 L ABG O2 Saturation 99 H ABG Base Excess -9 L Quality Measures Quality Measures VTE prophylaxis (SCDs) Assessment & Plan Assessment Current Active Medications: Generic Name Dose Route Start Last Admin Trade Name Freq PRN Reason Stop Dose Admin Acetaminophen 650 mg 10/05/24 17:00 Acetaminophen 325 Mg Tablet PO 11/04/24 16:59 Q6H PRN Pain 1-3 and/or Fever >100.1 Calcitriol 0.5 mcg 10/08/24 09:00 10/10/24 08:26 Calcitriol 0.25 Mcg Capsule PO 11/07/24 08:59 0.5 mcg QDAY MARNI Administration Calcium Carbonate 600 mg 10/06/24 09:45 10/10/24 08:26 Calcium Carbonate 600 Mg Tablet PO 11/05/24 09:44 600 mg QDAY MARNI Administration Carvedilol 3.125 mg 10/08/24 17:30 10/10/24 08:26 Carvedilol 3.125 Mg Tablet PO 11/07/24 17:29 3.125 mg BIDWM MARNI Administration Dextrose 25 ml 10/05/24 17:18 Dextrose 50%-Water Inj 50 Ml Syringe IV 11/04/24 17:17 Q15MIN PRN BG 50-70 responsive npo pt Dextrose 50 ml 10/05/24 17:18 Dextrose 50%-Water Inj 50 Ml Syringe IV 11/04/24 17:17 Q15MIN PRN BG <50 OR BG <70 & pt unresponsive Famotidine 10 mg 10/06/24 14:30 10/10/24 08:27 Famotidine 20 Mg Tablet PO 11/05/24 14:29 10 mg QDAY MARNI Administration Glucagon 1 mg 10/05/24 17:18 Glucagon Inj 1 Mg Vial IM Q15MIN PRN BG <70, and no IV access Heparin Sodium (Porcine) 3,800 unit 10/07/24 12:35 10/08/24 10:38 Heparin Sod Inj 1000 Unit/Ml Vial 10 Ml INDWELLCAT 10/21/24 12:34 3,800 unit PRN PRN Administration DIALYSIS Albumin Human 25 gm in 100 mls @ 100 mls/min 10/07/24 12:35 Albuminar-25 Ivpb IV 10/10/24 12:34 PRN PRN dialysis Insulin Human Lispro 0 unit 10/08/24 21:00 10/10/24 07:18 Insulin Lispro (Admelog) 1 Unit/0.01 Ml Unit SC 11/07/24 20:59 Not Given ACHS MARNI Protocol Labetalol HCl 10 mg 10/07/24 17:20 10/08/24 11:45 Labetalol Inj 5 Mg/Ml Vial 20 Ml IVP 11/04/24 17:22 10 mg Q2H PRN Administration SBP > 170 and HR > 70 Lactulose 10 gm 10/08/24 10:44 Lactulose Syrup 20 Gm/30 Ml Udc PO 11/05/24 13:59 TID PRN constipation Protocol Nifedipine 60 mg 10/08/24 09:15 10/10/24 08:26 Nifedipine Xl 30 Mg Tabcr PO 11/07/24 09:14 60 mg QDAY MARNI Administration Ondansetron HCl 4 mg 10/05/24 17:00 10/05/24 19:30 Ondansetron Inj 2 Mg/Ml Inj 2 Ml IVP 11/04/24 16:59 4 mg Q6H PRN Administration NAUSEA OR VOMITING Protocol Oxycodone/Acetaminophen 1 tab 10/05/24 17:00 Oxycodone/Apap 5/325 Tablet PO 10/10/24 16:59 Q6H PRN PAIN SCALE 4-6 (Moderate Sennosides 1 tab 10/05/24 17:00 Senna Tablet PO 11/04/24 16:59 QDAY PRN constipation Protocol Sevelamer Carbonate 800 mg 10/06/24 12:00 10/10/24 08:26 Sevelamer Carbonate 800 Mg Tablet PO 11/05/24 11:59 800 mg TIDWM MARNI Administration Simethicone 80 mg 10/06/24 09:43 Simethicone 80 Mg Chew PO 11/05/24 09:42 QID PRN GAS Valsartan 160 mg 10/08/24 21:00 10/10/24 08:27 Valsartan 80 Mg Tablet PO 11/07/24 20:59 160 mg BID MARNI Administration Vitamin B Complex/Vit C/Folic Acid 1 tab 10/06/24 17:45 10/10/24 08:26 Vit B12/Vit C/Fa (Nephrovite) Tablet PO 11/05/24 17:44 1 tab QDAY MARNI Administration Plan #Worsening CKD #ESRD #Secondary hyperparathyroidism #Hypocalcemia #Anion gap metabolic acidosis, resolved, likely secondary to underlying renal failure Patient transitioning to ESRD, on HD day 3. Likely secondary to uncontrolled hypertension and diabetes Continue HD, calcium carbonate, phosphate binders, Nephro-Kandy, and calcitriol Hepatitis panel negative; PPD negative Outpatient chair set up: Monday10/14/2024 @ 9:20 AM Ok to discharge patient on 10/11 after hemodialysis #Uncontrolled hypertension #Hypertensive emergency, improved SBP has improved; 130-150s Continue current antihypertensive regimen: Nifedipine, Valsartan, Coreg and prn labetalol Discontinued bumex #Diabetes mellitus SSI, Accu-Cheks every 6 hours #Concern for pericarditis CT abdomen pelvis showed pericardial effusion, concern for pericarditis,, echocardiogram showed small pericardial effusion without any evidence of cardiac tamponade. Noted dilated IVC. Possibly uremic pericarditis Continue with hemodialysis #Anemia of chronic disease #Iron deficiency anemia #Concern for GI bleed Decreased iron stores on labs, serum iron 48, TIBC 230. Likely multifactorial due to anemia of chronic disease and iron deficiency. Patient received IV ferumoxytol and Procrit => can consider continuing Procrit with HD +FOBT, GI following EGD: esophagitis, biopsies sent #Hyperlipidemia Continue Lipitor Patient seen and care discussed with my attending Dr. Clark. Baljinder Mora MD PGY-3 Attending Provider Attestation/Addendum Patient seen and examined with resident physician Dr. Mora. Note reviewed, agree with findings and recommendations. Patient presented with significant shortness of breath and fluid overload. Patient currently seen in telemetry. Sister at bedside. Patient got accepted to [facility] dialysis starting Monday. He is going to get dialysis tomorrow and postdialysis can be discharged.
--- NOTE | 2024-10-10 11:33 | ESPR_ITS ---
<Statement entered by Kt Saavedra MD - 10/10/24 21:54> I discussed with and supervised the internal specialist physician involved in the care of this patient. Patient assessment and plan was discussed with entire medicine team, including my attending. I agree with the assessment and plan as documented by internal specialist doctor. Patient care was discussed with my attending physician Dr.Tingle Kt Saavedra, PGY-2 Documentation for date of: 10/10/24 Subjective Subjective Interval history: No acute overnight events. Complaining of dizziness in the AM, believes it's happening following meds administration. Denies fever, chills, headaches, chest pain, sob, cough, GI or urinary symptoms. Edema improved, BP improving, vitals stable. CBC stable. Renal function improving. Outpatient dialysis chair has been arranged. Will continue 1 more session of HD, will likely discharge tomorrow 10/11/2024 if stable. Exam Vital Signs Temp Pulse Resp BP Pulse Ox O2 Del Method O2 Flow Rate 98.3 F 75 17 159/70 H 95 Room Air 3 10/10/24 08:00 10/10/24 08:27 10/10/24 08:00 10/10/24 08:27 10/10/24 08:00 10/10/24 08:00 10/08/24 20:05 Narrative Exam Gen: AAOx3, in moderate distress HEENT: NCAT, PERRLA, EOMI, MMM, facial edema improving; R IJ cath noted CVS: normal S1, S2. RRR. No MRG Resp: CTA B/L. No rhonchi, rales, crackles or wheezing Abd: soft, non-tender, non-distended. BS+ in all 4 quadrants MSK: Good ROM in BUE & BLE. Pitting edema improving Neuro: CN II-XII grossly intact. no focal deficits appreciated Objective Labs 10/11/24 04:53 10/11/24 04:53 Labs: Laboratory Results - last 24 hr 10/10/24 04:50 WBC 8.5 RBC 2.75 L Hgb 8.1 L Hct 22.9 L MCV 83 MCH 29.5 MCHC 35.4 RDW Std Deviation 40.4 Plt Count 243 Neut % (Auto) 61 Lymph % (Auto) 21 Gibson % (Auto) 11 Eos % (Auto) 6 Baso % (Auto) 1 Neut # (Auto) 5.1 Lymph # (Auto) 1.7 Gibson # (Auto) 1.0 H Eos # (Auto) 0.5 Baso # (Auto) 0.1 Immature Gran # (Auto) 0.09 H Absolute Nucleated RBC 0.14 H Immature Gran % 1 H Nucleated RBC % 2 H Sodium 141 Potassium 3.8 Chloride 103 Carbon Dioxide 27.8 Anion Gap 10 BUN 30 H Creatinine 5.1 H* D Estim Creat Clear Calc 14.8 L eGFR 13 L* BUN/Creatinine Ratio 6 L Glucose 159 H Calculated Osmolality 290 Calcium 7.2 L Corrected Calcium 8.3 L Phosphorus 3.2 Magnesium 1.8 Total Bilirubin 0.2 L AST < 10 ALT < 7 L Alkaline Phosphatase 84 Total Protein 4.3 L Albumin 2.6 L Globulin 1.7 L Albumin/Globulin Ratio 1.5 ABG Interpretation ABG results: 10/05/24 12:16 ABG pH 7.32 L ABG pCO2 31 L ABG pO2 101 ABG HCO3 16 L ABG O2 Saturation 99 H ABG Base Excess -9 L Quality Measures Quality Measures VTE prophylaxis (SCDs) Assessment & Plan Assessment Current Active Medications: Generic Name Dose Route Start Last Admin Trade Name Freq PRN Reason Stop Dose Admin Acetaminophen 650 mg 10/05/24 17:00 Acetaminophen 325 Mg Tablet PO 11/04/24 16:59 Q6H PRN Pain 1-3 and/or Fever >100.1 Calcitriol 0.5 mcg 10/08/24 09:00 10/10/24 08:26 Calcitriol 0.25 Mcg Capsule PO 11/07/24 08:59 0.5 mcg QDAY MARNI Administration Calcium Carbonate 600 mg 10/06/24 09:45 10/10/24 08:26 Calcium Carbonate 600 Mg Tablet PO 11/05/24 09:44 600 mg QDAY MARNI Administration Carvedilol 3.125 mg 10/08/24 17:30 10/10/24 08:26 Carvedilol 3.125 Mg Tablet PO 11/07/24 17:29 3.125 mg BIDWM MARNI Administration Dextrose 25 ml 10/05/24 17:18 Dextrose 50%-Water Inj 50 Ml Syringe IV 11/04/24 17:17 Q15MIN PRN BG 50-70 responsive npo pt Dextrose 50 ml 10/05/24 17:18 Dextrose 50%-Water Inj 50 Ml Syringe IV 11/04/24 17:17 Q15MIN PRN BG <50 OR BG <70 & pt unresponsive Famotidine 10 mg 10/06/24 14:30 10/10/24 08:27 Famotidine 20 Mg Tablet PO 11/05/24 14:29 10 mg QDAY MARNI Administration Glucagon 1 mg 10/05/24 17:18 Glucagon Inj 1 Mg Vial IM Q15MIN PRN BG <70, and no IV access Heparin Sodium (Porcine) 3,800 unit 10/07/24 12:35 10/08/24 10:38 Heparin Sod Inj 1000 Unit/Ml Vial 10 Ml INDWELLCAT 10/21/24 12:34 3,800 unit PRN PRN Administration DIALYSIS Albumin Human 25 gm in 100 mls @ 100 mls/min 10/07/24 12:35 Albuminar-25 Ivpb IV 10/10/24 12:34 PRN PRN dialysis Insulin Human Lispro 0 unit 10/08/24 21:00 10/10/24 11:32 Insulin Lispro (Admelog) 1 Unit/0.01 Ml Unit SC 11/07/24 20:59 Not Given ACHS MARNI Protocol Labetalol HCl 10 mg 10/07/24 17:20 10/08/24 11:45 Labetalol Inj 5 Mg/Ml Vial 20 Ml IVP 11/04/24 17:22 10 mg Q2H PRN Administration SBP > 170 and HR > 70 Lactulose 10 gm 10/08/24 10:44 Lactulose Syrup 20 Gm/30 Ml Udc PO 11/05/24 13:59 TID PRN constipation Protocol Nifedipine 60 mg 10/08/24 09:15 10/10/24 08:26 Nifedipine Xl 30 Mg Tabcr PO 11/07/24 09:14 60 mg QDAY MARNI Administration Ondansetron HCl 4 mg 10/05/24 17:00 10/05/24 19:30 Ondansetron Inj 2 Mg/Ml Inj 2 Ml IVP 11/04/24 16:59 4 mg Q6H PRN Administration NAUSEA OR VOMITING Protocol Oxycodone/Acetaminophen 1 tab 10/05/24 17:00 Oxycodone/Apap 5/325 Tablet PO 10/10/24 16:59 Q6H PRN PAIN SCALE 4-6 (Moderate Sennosides 1 tab 10/05/24 17:00 Senna Tablet PO 11/04/24 16:59 QDAY PRN constipation Protocol Sevelamer Carbonate 800 mg 10/06/24 12:00 10/10/24 08:26 Sevelamer Carbonate 800 Mg Tablet PO 11/05/24 11:59 800 mg TIDWM MARNI Administration Simethicone 80 mg 10/06/24 09:43 Simethicone 80 Mg Chew PO 11/05/24 09:42 QID PRN GAS Valsartan 160 mg 10/08/24 21:00 10/10/24 08:27 Valsartan 80 Mg Tablet PO 11/07/24 20:59 160 mg BID MARNI Administration Vitamin B Complex/Vit C/Folic Acid 1 tab 10/06/24 17:45 10/10/24 08:26 Vit B12/Vit C/Fa (Nephrovite) Tablet PO 11/05/24 17:44 1 tab QDAY MARNI Administration Plan 49-year-old male with PMHx of HTN, gastritis, T2DM, admitted 10/05 for abdominal discomfort and nausea, found to have hypertensive emergency BP 219/122. Currently being worked up for GILLIAN with CR 9.1, and liver cirrhosis. Overall remains stable, tolerating hemodialysis well. Dialysis chair outpatient. Has been arranged. Will do 1 more session of HD, likely discharge tomorrow 10/11/2024. GILLIAN on CKD 2/2 diabetic/hypertensive nephrosclerosis Nephrotic range proteinuria Presenting with creatinine 9.4, BUN 79, GFR 6. Denies history of kidney disease. Initially suspected dehydration given history of vomiting, however he responded poorly to IVF, urine output remains poor, has worsening bilateral lower extremity edema. Uric acid 9.5. UA showing nephrotic range proteinuria with 3+ protein, 3+ GLUCOSE, 2+ RBCs, microalbumin greater than 380, protein 1570, MCR 369. FENA calculated at 1.4, suggest intrinsic versus prerenal. Urine sodium 22.8 and BUN to creatinine is low, less likely hepatorenal. Urine GLUCOSE elevated, normal serum GLUCOSE, tubulointerstitial disease, also may be diabetic nephropathy or longstanding untreated hypertension. Urine output remains poor despite aggressive diuresis. Completed 2 HD sessions, total 4 L removed. Has another HD session today. Currently pending dialysis chair placement. ? Continue inpatient HD ? Discontinue BUMEX 2 mg daily (poor urine output despite) ? Fluid restriction 1500 cc daily ? Strict LARISSA's Hypertensive emergency (resolved) HTN in setting of ARF/ increased RAAS response Admission BP 219/122, possibly chronically untreated hypertension vs. volume overload. CT head was negative for acute pathology. BP remains elevated despite NICARDIPINE 20 BID (discontinued), VALSARTAN 160 daily. Medications change per nephrology recommendations as below: ? Continue NIFEDIPINE 60 mg XL daily ? Continue COREG 3.125 mg BID ? Continue VALSARTAN 160 mg BID ? Continue LABETALOL PRN if BP greater than 170 after meds Dizziness Complains of dizziness in a.m. over the last few days, states occurs following meds administration. Likely adjusting to low blood pressure. He is neurologically intact otherwise. ? Continue monitoring Decompensated liver cirrhosis, unspecified etiology CT showed cirrhosis, fatty infiltrate with mild ascites. ALBUMIN 2.5, TB 0.2, LFTs low. Denies history of alcohol use. No signs or symptoms of of hepatic encephalopathy. Child-Vila 9, Class B - indication for transplant evaluation. Maddrey's score neagative value - good prognosis. ? Hep panel was negative. ? Pending COPPER, JESSICA, ANTIMITOCHONDRIAL AB. ? Continue CEFTRIAXONE SBP prophylaxis (10/05 to 10/12) Acute GI bleed anemia (stable) Normocytic anemia, iron deficiency vs. anemia of chronic disease Hgb 9.8 > 7.7 > 8.0, reticulocyte elevated 1.7, normal coags, positive FOBT. Iron 48, low, TIBC 230 low, iron saturation borderline low at 20. GI following, planning for endoscopy tomorrow 10/08/2024 CBC stable, Hgb improving 8.6 today. EGD 10/25/2024 showed esophagitis, erythematous stomach mucosa, biopsies were obtained (see report for more detail). ? N.p.o. after midnight ? Pending EGD on 10/08/2024 ? Transfuse if Hgb less than 7 ? Will need to follow-up with GI regarding EGD biopsies. IDDM type II A1c 5.7, GLUCOSE relatively normal. ? INSULIN sliding scale ? Accu-Cheks Metabolic acidosis (resolved) Anion gap 17, ABG pH 7.32, pCO2 31, bicarb 16. Likely AGMA (uremic), with mixed NAGMA (RTA 2 or 4), with appropriate respiratory compensation. ? Treating underlying cause as above NSTEMI, likely type II, demand ischemia (stable) Small pericardial effusion, likely uremic (stable) Peak troponin 0.352. EKG sinus rhythm with possible left atrial enlargement and nonspecific ST abnormalities. CT showed small pericardial effusion. May possibly be urinary pericarditis, given elevated BUN, however he denies chest pain. ECHO showed small pericardial effusion noted without any evidence of any cardiac tamponade, dilated IVC, normal LV size and function, EEF 55 to 60%, Grade 1 diastolic dysfunction, Normal RV size and function, Estimated RVSP mildly elevated at 40-45 mmHg, Mild MR and TR, Mild to moderately dilated LA. ? Small effusion will likely resolve spontaneously. ? No plan for intervention from cardiology. Hypocalcemia (improving) Hyperphosphatemia (improving) Corrected calcium 8.2, phosphorus 7.1. ? CALCIUM CARBONATE 600 mg q. day ? SEVELAMER 800 mg TID ? Daily labs Abdominal bloating (resolved) in setting of: Mild small bowel ileus Plan abdominal distention since morning, KUB showed mild SB ileus. ? Started LACTULOSE 10 mg TID ? Started SIMETHICONE PRN for bloating Health maintenance Diet: Renal diet GI prophylaxis: FAMOTIDINE, LACTULOSE PRN DVT prophylaxis: SCD Antibiotics: CEFTRIAXONE CODE STATUS: Full code Disposition: Pending hemodialysis, GI and cardiology recommendations Case was discussed with attending physician and senior resident. Geovanna Craig DO PGYI Attending Provider Attestation/Addendum I have discussed and was present for the essential components of the history, physical examination, diagnosis, and treatment plan with the resident. I agree with the patient's care as documented by the resident and amended herein by me. Fletcher Leung DO. Patient seen and evaluated this AM. No acute events overnight, patient does have complaints of dizziness, more specifically after he receives his blood pressure medications which is nifedipine, Coreg and valsartan. Will address this with nephrology, may have to modify his medications or give his body a chance to adjust as his BP has run very high in the past. Kidney function continues to improve, BUN 30, creatinine downtrended to 5.1 today. Nephrology would like to keep the patient today for 1 more hemodialysis session and can discharge tomorrow on 10/11 for further evaluation. Although this document has been carefully reviewed, there may still be some phonetic and other typographical errors. These errors are purely grammatical due to imperfections in the software program and should not be construed in any way to compromise the substance of the patient's medical care during this visit.
[2024-10-10] MEDS: INSULIN LISPRO (AdmeLOG) 1 UNIT/0.01 ML UNIT SC ×2 (17:28→20:28)
--- NOTE | 2024-10-10 20:13 | ESPR_ITS ---
Documentation for date of: 10/10/24 Subjective Subjective Interval history: Workup of the chronic liver disease in progress JESSICA negative Hepatitis AB and C serologies negative Copper level encephalopathy level pending Antimitochondrial antibody pending Exam Vital Signs Temp Pulse Resp BP Pulse Ox O2 Del Method O2 Flow Rate 98.4 F 76 18 135/81 H 95 Room Air 3 10/10/24 16:00 10/10/24 17:27 10/10/24 16:00 10/10/24 17:27 10/10/24 16:00 10/10/24 16:00 10/08/24 20:05 Objective Labs 10/10/24 04:50 10/10/24 04:50 Labs: Laboratory Results - last 24 hr 10/10/24 04:50 WBC 8.5 RBC 2.75 L Hgb 8.1 L Hct 22.9 L MCV 83 MCH 29.5 MCHC 35.4 RDW Std Deviation 40.4 Plt Count 243 Neut % (Auto) 61 Lymph % (Auto) 21 [place] % (Auto) 11 Eos % (Auto) 6 Baso % (Auto) 1 Neut # (Auto) 5.1 Lymph # (Auto) 1.7 [place] # (Auto) 1.0 H Eos # (Auto) 0.5 Baso # (Auto) 0.1 Immature Gran # (Auto) 0.09 H Absolute Nucleated RBC 0.14 H Immature Gran % 1 H Nucleated RBC % 2 H Sodium 141 Potassium 3.8 Chloride 103 Carbon Dioxide 27.8 Anion Gap 10 BUN 30 H Creatinine 5.1 H* D Estim Creat Clear Calc 14.8 L eGFR 13 L* BUN/Creatinine Ratio 6 L Glucose 159 H Calculated Osmolality 290 Calcium 7.2 L Corrected Calcium 8.3 L Phosphorus 3.2 Magnesium 1.8 Total Bilirubin 0.2 L AST < 10 ALT < 7 L Alkaline Phosphatase 84 Total Protein 4.3 L Albumin 2.6 L Globulin 1.7 L Albumin/Globulin Ratio 1.5 Impressions Impression: Gastritis Esophagitis Chronic liver disease GILLIAN on CKD Plan Waiting for the further workup to come back Patient can be followed as an outpatient by the PCP ABG Interpretation ABG results: 10/05/24 12:16 ABG pH 7.32 L ABG pCO2 31 L ABG pO2 101 ABG HCO3 16 L ABG O2 Saturation 99 H ABG Base Excess -9 L Assessment & Plan A&P Narrative # Nausea vomiting epigastric pain could be related to patient's uremic syndrome however GI causes Needs to be ruled out Plan Gallbladder ultrasound # Patient does have normal liver function test and his cirrhosis is well compensated I will order a complete workup for the chronic active hepatitis Can follow the patient along We will consider doing an upper endoscopy if the symptoms of abdominal pain nausea vomiting continues Other medical problems include # GILLIAN on CKD # IDDM # Essential hypertension Thank you very much for the opportunity to participate in the care of this patient Time Spent With Patient Time: Total time spent is greater than 50% in coordination of care (as documented) at patient's floor/unit and/or counseling patient:
[2024-10-11] VITALS (26 sets, daily range): BP systolic 133–196; BP diastolic 77–109; PULSE 69–85; RESP 14–18; TEMP 36.5–36.9; O2SAT 98–99; BMI 29.3
[2024-10-11 05:41] LABS: Basophils # (Auto) 0.1 Thou/mm3 (0.0-0.2); Basophils % (Auto) 1 % (0-2.5); Eosinophils # (Auto) 0.7 Thou/mm3 (0.0-0.5); Eosinophils % (Auto) 7 % (0-10); Hematocrit 21.4 % (41.0-53.0); Immature Granulocytes % (Auto) 1 % (0-0); Lymphocytes # (Auto) 1.2 Thou/mm3 (1.0-4.8); Lymphocytes % (Auto) 13 % (10-50); Mean Corpuscular HGB Conc 34.6 g/dl (31.0-37.0); Mean Corpuscular Hemoglobin 29.1 pg (25.0-35.0); Mean Corpuscular Volume 84 fL (80-100); Monocytes % (Auto) 10 % (0-12); Neutrophils # (Auto) 6.6 Thou/mm3 (1.8-7.7); Neutrophils % (Auto) 68 % (37-80); Nucleated Red Blood Cell # 0.04 Thou/mm3 (0.00-0.00); Nucleated Red Blood Cell % 0 /100 WBC (0); Platelet Count 275 Thou/mm3 (140-440); Red Blood Count 2.54 Miln/mm3 (4.50-5.90); White Blood Count 9.6 Thou/mm3 (3.8-10.6)
[2024-10-11 05:46] LABS: Hemoglobin 7.4 g/dL (13.5-16.0)
[2024-10-11 06:13] LABS: Alanine Aminotransferase < 7 U/L (10-49); Albumin, Serum 2.6 gm/dL (3.5-5.0); Albumin/Globulin Ratio 1.6 (1.2-2.2); Alkaline Phosphatase 76 U/L (46-116); Anion Gap 9 (7-16); Aspartate Amino Transferase 11 U/L (0-34); BUN/Creatinine Ratio 6 Ratio (12-20); Bilirubin,Total 0.2 mg/dL (0.3-1.2); Blood Urea Nitrogen 42 mg/dL (9-23); Calcium (Corrected) 9.1 mg/dL (8.5-10.1); Carbon Dioxide 25.6 mMol/L (20.0-31.0); Chloride 100 mMol/L (98-107); Creatinine (Component) 6.9 mg/dL (0.6-1.3); Estimated Creatinine Clearance 10.9 mL/min (>60); Globulin 1.6 gm/dL (2.3-3.5); Glucose 134 mg/dL (74-106); Magnesium 2.1 mg/dL (1.6-2.6); Osmolality,Calculated 282 (275-295); Phosphorous 3.8 mg/dL (2.4-5.1); Sodium 135 mMol/L (136-145); Total Protein 4.2 gm/dL (5.7-8.2); eGFR 9 See Note
[2024-10-11] MEDS: SENNA TABLET 1 TAB PO (08:15)
[2024-10-11] MEDS: SEVELAMER CARBONATE 800 MG TABLET PO ×3 (08:16→17:26)
--- NOTE | 2024-10-11 10:35 | ESPR_ITS ---
Documentation for date of: 10/11/24 Subjective Subjective Interval history: Downward trending hemoglobin hematocrit at 7.4 and 21.4 No signs of any active bleeding Upper endoscopy shows gastritis and esophagitis LFTs are normal Exam Vital Signs Temp Pulse Resp BP Pulse Ox O2 Del Method O2 Flow Rate 97.7 F 74 16 153/88 H 98 Room Air 3 10/11/24 09:01 10/11/24 10:15 10/11/24 09:01 10/11/24 10:15 10/11/24 09:01 10/11/24 08:00 10/08/24 20:05 Objective Labs 10/11/24 04:53 10/11/24 04:53 Labs: Laboratory Results - last 24 hr 10/11/24 04:53 WBC 9.6 RBC 2.54 L Hgb 7.4 L Hct 21.4 L* MCV 84 MCH 29.1 MCHC 34.6 RDW Std Deviation 41.0 Plt Count 275 D Neut % (Auto) 68 Lymph % (Auto) 13 [place] % (Auto) 10 Eos % (Auto) 7 Baso % (Auto) 1 Neut # (Auto) 6.6 Lymph # (Auto) 1.2 [place] # (Auto) 1.0 H Eos # (Auto) 0.7 H Baso # (Auto) 0.1 Immature Gran # (Auto) 0.10 H Absolute Nucleated RBC 0.04 H Immature Gran % 1 H Nucleated RBC % 0 Sodium 135 L Potassium 4.0 Chloride 100 Carbon Dioxide 25.6 Anion Gap 9 BUN 42 H Creatinine 6.9 H* D Estim Creat Clear Calc 10.9 L eGFR 9 L* BUN/Creatinine Ratio 6 L Glucose 134 H Calculated Osmolality 282 Calcium 8.0 L Corrected Calcium 9.1 Phosphorus 3.8 Magnesium 2.1 Total Bilirubin 0.2 L AST 11 ALT < 7 L Alkaline Phosphatase 76 Total Protein 4.2 L Albumin 2.6 L Globulin 1.6 L Albumin/Globulin Ratio 1.6 Impressions Impression: Downward trending hemoglobin hematocrit most likely related to his renal disease No signs of any active bleeding Gastritis Esophagitis Normal LFTs workup pending ABG Interpretation ABG results: 10/05/24 12:16 ABG pH 7.32 L ABG pCO2 31 L ABG pO2 101 ABG HCO3 16 L ABG O2 Saturation 99 H ABG Base Excess -9 L Assessment & Plan A&P Narrative # Nausea vomiting epigastric pain could be related to patient's uremic syndrome however GI causes Needs to be ruled out Plan Gallbladder ultrasound # Patient does have normal liver function test and his cirrhosis is well compensated I will order a complete workup for the chronic active hepatitis Can follow the patient along We will consider doing an upper endoscopy if the symptoms of abdominal pain nausea vomiting continues Other medical problems include # GILLIAN on CKD # IDDM # Essential hypertension Thank you very much for the opportunity to participate in the care of this patient Time Spent With Patient Time: Total time spent is greater than 50% in coordination of care (as documented) at patient's floor/unit and/or counseling patient:
[2024-10-11] MEDS: EPOETIN ALFA-EPBX INJ 10,000 UNIT/ML VIAL (NON-ESRD) 10000 UNIT SC (12:14)
[2024-10-11] MEDS: VALSARTAN 80 MG TABLET 160 MG PO ×2 (12:23→20:26)
[2024-10-11] MEDS: NIFEdipine XL 30 MG TABCR 60 MG PO (12:23)
[2024-10-11 13:05] LABS: Free T4 (Free Thyroxine) 1.14 ng/dL (0.89-1.76); Thyroid Stimulating Hormone 1.86 uIU/mL (0.55-4.78)
[2024-10-11] MEDS: HEPARIN SOD INJ 1000 UNIT/ML VIAL 10 ML 3800 UNIT INDWELLCAT (13:28)
[2024-10-11] MEDS: CALCIUM CARBONATE 600 MG TABLET PO (13:35)
[2024-10-11] MEDS: VIT B12/Vit C/FA (Nephrovite) TABLET 1 TAB PO (13:35)
[2024-10-11] MEDS: FAMOTIDINE 20 MG TABLET 10 MG PO (13:35)
[2024-10-11] MEDS: CALCITRIOL 0.25 mCg CAPSULE 0.5 MCG PO (13:35)
--- NOTE | 2024-10-11 14:16 | ESPR_ITS ---
<Statement entered by Kt Saavedra MD - 10/12/24 14:04> Patient complaining of feeling dizzy since starting BP medications. Dizziness most likely multifactorial: hemodyalisis, medication, chronic HTN now being controlled. Patient to get HD tomorrow after which if stable will be discharged. I discussed with and supervised the international logistics analyst physician involved in the care of this patient. Patient assessment and plan was discussed with entire medicine team, including my attending. I agree with the assessment and plan as documented by international logistics analyst doctor. Patient care was discussed with my attending physician Dr. Daljit Saavedra, PGY-2 Documentation for date of: 10/11/24 Subjective Subjective Interval history: No acute overnight events. Denies new or worsening symptoms, orthostatic positive. Although still feeling dizzy, he is ambulating in the room independently and without lightheadedness. BP remains poorly controlled, nephrology team following. Will continue inpatient HD. Exam Vital Signs Temp Pulse Resp BP Pulse Ox O2 Del Method O2 Flow Rate 98.0 F 82 18 196/109 H 98 Room Air 3 10/11/24 12:50 10/11/24 12:50 10/11/24 12:50 10/11/24 12:50 10/11/24 12:50 10/11/24 08:00 10/08/24 20:05 Narrative Exam Gen: AAOx3, in moderate distress HEENT: NCAT, PERRLA, EOMI, MMM, facial edema improving; R IJ cath noted CVS: normal S1, S2. RRR. No MRG Resp: CTA B/L. No rhonchi, rales, crackles or wheezing Abd: soft, non-tender, non-distended. BS+ in all 4 quadrants MSK: Good ROM in BUE & BLE. Pitting edema improving Neuro: CN II-XII grossly intact. no focal deficits appreciated Objective Labs 10/12/24 04:46 10/12/24 04:46 Labs: Laboratory Results - last 24 hr 10/11/24 10/11/24 04:52 04:53 WBC 9.6 RBC 2.54 L Hgb 7.4 L Hct 21.4 L* MCV 84 MCH 29.1 MCHC 34.6 RDW Std Deviation 41.0 Plt Count 275 D Neut % (Auto) 68 Lymph % (Auto) 13 [place] % (Auto) 10 Eos % (Auto) 7 Baso % (Auto) 1 Neut # (Auto) 6.6 Lymph # (Auto) 1.2 [place] # (Auto) 1.0 H Eos # (Auto) 0.7 H Baso # (Auto) 0.1 Immature Gran # (Auto) 0.10 H Absolute Nucleated RBC 0.04 H Immature Gran % 1 H Nucleated RBC % 0 Sodium 135 L Potassium 4.0 Chloride 100 Carbon Dioxide 25.6 Anion Gap 9 BUN 42 H Creatinine 6.9 H* D Estim Creat Clear Calc 10.9 L eGFR 9 L* BUN/Creatinine Ratio 6 L Glucose 134 H Calculated Osmolality 282 Calcium 8.0 L Corrected Calcium 9.1 Phosphorus 3.8 Magnesium 2.1 Total Bilirubin 0.2 L AST 11 ALT < 7 L Alkaline Phosphatase 76 Total Protein 4.2 L Albumin 2.6 L Globulin 1.6 L Albumin/Globulin Ratio 1.6 TSH 1.86 Free T4 1.14 ABG Interpretation ABG results: 10/05/24 12:16 ABG pH 7.32 L ABG pCO2 31 L ABG pO2 101 ABG HCO3 16 L ABG O2 Saturation 99 H ABG Base Excess -9 L Quality Measures Quality Measures VTE prophylaxis (SCDs) Assessment & Plan Assessment Current Active Medications: Generic Name Dose Route Start Last Admin Trade Name Freq PRN Reason Stop Dose Admin Acetaminophen 650 mg 10/05/24 17:00 Acetaminophen 325 Mg Tablet PO 11/04/24 16:59 Q6H PRN Pain 1-3 and/or Fever >100.1 Calcitriol 0.5 mcg 10/08/24 09:00 10/11/24 13:35 Calcitriol 0.25 Mcg Capsule PO 11/07/24 08:59 0.5 mcg QDAY MARNI Administration Calcium Carbonate 600 mg 10/06/24 09:45 10/11/24 13:35 Calcium Carbonate 600 Mg Tablet PO 11/05/24 09:44 600 mg QDAY MARNI Administration Carvedilol 6.25 mg 10/11/24 17:30 Carvedilol 3.125 Mg Tablet PO 11/10/24 17:29 BIDWM MARNI Dextrose 25 ml 10/05/24 17:18 Dextrose 50%-Water Inj 50 Ml Syringe IV 11/04/24 17:17 Q15MIN PRN BG 50-70 responsive npo pt Dextrose 50 ml 10/05/24 17:18 Dextrose 50%-Water Inj 50 Ml Syringe IV 11/04/24 17:17 Q15MIN PRN BG <50 OR BG <70 & pt unresponsive Famotidine 10 mg 10/06/24 14:30 10/11/24 13:35 Famotidine 20 Mg Tablet PO 11/05/24 14:29 10 mg QDAY MARNI Administration Glucagon 1 mg 10/05/24 17:18 Glucagon Inj 1 Mg Vial IM Q15MIN PRN BG <70, and no IV access Heparin Sodium (Porcine) 3,800 unit 10/07/24 12:35 10/11/24 13:28 Heparin Sod Inj 1000 Unit/Ml Vial 10 Ml INDWELLCAT 10/21/24 12:34 3,800 unit PRN PRN Administration DIALYSIS Insulin Human Lispro 0 unit 10/08/24 21:00 10/11/24 13:31 Insulin Lispro (Admelog) 1 Unit/0.01 Ml Unit SC 11/07/24 20:59 Not Given ACHS MARNI Protocol Labetalol HCl 10 mg 10/07/24 17:20 10/08/24 11:45 Labetalol Inj 5 Mg/Ml Vial 20 Ml IVP 11/04/24 17:22 10 mg Q2H PRN Administration SBP > 170 and HR > 70 Lactulose 10 gm 10/08/24 10:44 Lactulose Syrup 20 Gm/30 Ml Udc PO 11/05/24 13:59 TID PRN constipation Protocol Nifedipine 60 mg 10/08/24 09:15 10/11/24 12:23 Nifedipine Xl 30 Mg Tabcr PO 11/07/24 09:14 60 mg QDAY MARNI Administration Ondansetron HCl 4 mg 10/05/24 17:00 10/05/24 19:30 Ondansetron Inj 2 Mg/Ml Inj 2 Ml IVP 11/04/24 16:59 4 mg Q6H PRN Administration NAUSEA OR VOMITING Protocol Sennosides 1 tab 10/05/24 17:00 10/11/24 08:15 Senna Tablet PO 11/04/24 16:59 1 tab QDAY PRN Administration constipation Protocol Sevelamer Carbonate 800 mg 10/06/24 12:00 10/11/24 13:34 Sevelamer Carbonate 800 Mg Tablet PO 11/05/24 11:59 800 mg TIDWM MARNI Administration Simethicone 80 mg 10/06/24 09:43 Simethicone 80 Mg Chew PO 11/05/24 09:42 QID PRN GAS Valsartan 160 mg 10/08/24 21:00 10/11/24 12:23 Valsartan 80 Mg Tablet PO 11/07/24 20:59 160 mg BID MARNI Administration Vitamin B Complex/Vit C/Folic Acid 1 tab 10/06/24 17:45 10/11/24 13:35 Vit B12/Vit C/Fa (Nephrovite) Tablet PO 11/05/24 17:44 1 tab QDAY MARNI Administration Plan 49-year-old male with PMHx of HTN, gastritis, T2DM, admitted 10/05 for abdominal discomfort and nausea, found to have hypertensive emergency BP 219/122. Currently being worked up for GILLIAN with CR 9.1, and liver cirrhosis. Overall remains stable, tolerating hemodialysis well. Dialysis chair outpatient. Has been arranged. Will do 1 more session of HD, likely discharge tomorrow 10/11/2024. GILLIAN on CKD 2/2 diabetic/hypertensive nephrosclerosis Nephrotic range proteinuria Presenting with creatinine 9.4, BUN 79, GFR 6. Denies history of kidney disease. Initially suspected dehydration given history of vomiting, however he responded poorly to IVF, urine output remains poor, has worsening bilateral lower extremity edema. Uric acid 9.5. UA showing nephrotic range proteinuria with 3+ protein, 3+ GLUCOSE, 2+ RBCs, microalbumin greater than 380, protein 1570, MCR 369. FENA calculated at 1.4, suggest intrinsic versus prerenal. Urine sodium 22.8 and BUN to creatinine is low, less likely hepatorenal. Urine GLUCOSE elevated, normal serum GLUCOSE, tubulointerstitial disease, also may be diabetic nephropathy or longstanding untreated hypertension. Urine output remains poor despite aggressive diuresis. Completed 2 HD sessions, total 4 L removed. Has another HD session today. Currently pending dialysis chair placement. ? Continue inpatient HD ? Discontinue BUMEX 2 mg daily (poor urine output despite) ? Fluid restriction 1500 cc daily ? Strict LARISSA's Hypertensive emergency (resolved) HTN in setting of ARF/ increased RAAS response Positive orthostatics hypotension Admission BP 219/122, possibly chronically untreated hypertension vs. volume overload. CT head was negative for acute pathology. BP remains poorly controlled, BP 140/90s with some spikes between meds. Orthostatic positive today, cannot increase BP meds at this time. ? Continue NIFEDIPINE 60 mg XL daily ? Continue COREG 3.125 mg BID ? Continue VALSARTAN 160 mg BID ? Continue LABETALOL PRN if BP greater than 170 after meds Dizziness Complains of dizziness in a.m. over the last few days, states occurs following meds administration. Likely adjusting to low blood pressure. He is neurologically intact otherwise. ? Continue monitoring Decompensated liver cirrhosis, unspecified etiology CT showed cirrhosis, fatty infiltrate with mild ascites. ALBUMIN 2.5, TB 0.2, LFTs low. Denies history of alcohol use. No signs or symptoms of of hepatic encephalopathy. Child-Vila 9, Class B - indication for transplant evaluation. Maddrey's score neagative value - good prognosis. ? Hep panel was negative. ? Pending COPPER, JESSICA, ANTIMITOCHONDRIAL AB. ? Continue CEFTRIAXONE SBP prophylaxis (10/05 to 10/12) Acute GI bleed anemia (stable) Normocytic anemia, iron deficiency vs. anemia of chronic disease Hgb 9.8 > 7.7 > 8.0, reticulocyte elevated 1.7, normal coags, positive FOBT. Iron 48, low, TIBC 230 low, iron saturation borderline low at 20. GI following, planning for endoscopy tomorrow 10/08/2024 CBC stable, Hgb improving 8.6 today. EGD 10/25/2024 showed esophagitis, erythematous stomach mucosa, biopsies were obtained (see report for more detail). ? N.p.o. after midnight ? Pending EGD on 10/08/2024 ? Transfuse if Hgb less than 7 ? Will need to follow-up with GI regarding EGD biopsies. IDDM type II A1c 5.7, GLUCOSE relatively normal. ? INSULIN sliding scale ? Accu-Cheks Metabolic acidosis (resolved) Anion gap 17, ABG pH 7.32, pCO2 31, bicarb 16. Likely AGMA (uremic), with mixed NAGMA (RTA 2 or 4), with appropriate respiratory compensation. ? Treating underlying cause as above NSTEMI, likely type II, demand ischemia (stable) Small pericardial effusion, likely uremic (stable) Peak troponin 0.352. EKG sinus rhythm with possible left atrial enlargement and nonspecific ST abnormalities. CT showed small pericardial effusion. May possibly be urinary pericarditis, given elevated BUN, however he denies chest pain. ECHO showed small pericardial effusion noted without any evidence of any cardiac tamponade, dilated IVC, normal LV size and function, EEF 55 to 60%, Grade 1 diastolic dysfunction, Normal RV size and function, Estimated RVSP mildly elevated at 40-45 mmHg, Mild MR and TR, Mild to moderately dilated LA. ? Small effusion will likely resolve spontaneously. ? No plan for intervention from cardiology. Hypocalcemia (improving) Hyperphosphatemia (improving) Corrected calcium 8.2, phosphorus 7.1. ? CALCIUM CARBONATE 600 mg q. day ? SEVELAMER 800 mg TID ? Daily labs Abdominal bloating (resolved) in setting of: Mild small bowel ileus Plan abdominal distention since morning, KUB showed mild SB ileus. ? Started LACTULOSE 10 mg TID ? Started SIMETHICONE PRN for bloating Health maintenance Diet: Renal diet GI prophylaxis: FAMOTIDINE, LACTULOSE PRN DVT prophylaxis: SCD Antibiotics: CEFTRIAXONE CODE STATUS: Full code Disposition: Pending hemodialysis, GI and cardiology recommendations Case was discussed with attending physician and senior resident. Geovanna Craig DO PGYI Attending Provider Attestation/Addendum I, Aurelia Bocanegra DO, attest that I was physically present for the lewis portions of the service and evaluated the patient with the resident and I reviewed and discussed the case with the resident and agree with the resident's findings and plans of care as documented above Patient seen and evaluated this AM. Patient seen in dialysis and states that he has dizziness with improvement of BP. Patient is otherwise neurologically intact. BP remains elevated and uncontrolled. Will continue with BP meds and uptitrate as needed. Anticipate DC in 24hrs if BP is improved. Orthostatics positive. Encouraged patient stand up slowly and given fall precautions. Patient is to f/u with PCP/ [facility] to follow up for workup of cirrhosis.
[2024-10-11] MEDS: carVEDILOL 3.125 MG TABLET 6.25 MG PO (14:29)
--- NOTE | 2024-10-11 15:05 | PD.RESPRO ---
Documentation for date of: 10/11/24 Subjective Subjective Interval history: Interval history: Informant Sister Radha, patient park interpreter Katalina, electrotyper apprentice. Mr. Cardenas is a 49-year-old male with past medical history of hypertension x 20 years, gastritis, type 2 diabetes x8 yrs, noncompliant and does not follow-up with a primary care physician for several years presenting to the ED on 10/05/2024 with several days of abdominal discomfort and nausea. Patient was vacationing in [place] to visit his sister. He is from [place]. patient has not been eating well for the past week or so and has been having chills on and off. Patient does not take any home medications at this time but has been told in the past that he has kidney problems, high blood pressure and diabetes. Patient denies any sick contacts or recent travel; moreover, denies having any chest pain, palpitations but does state that he periodically gets blurry vision, headaches and dizziness. Sister noticed that he is having some swelling in the lower extremities. Home medications apparently was on insulin but not taking. Denies any alcohol, smoking, illicit drug use. In the ED, patient presented hypertensive emergency with systolic blood pressure 219 and diastolic 122, heart rate 98, respiratory 20, afebrile satting 100 on room air. Pertinent lab findings included WBC 9.9, hemoglobin 10.8 with MCV of 83, ABG showed pH of 7.32, [id number], [id number] and bicarb of 16. Patient has acute renal failure with a BUN of 79, creatinine 9.4 and anion gap of 17, lactic acid 1.0, troponin 0.252, BNP 786. Chest x-ray shows mild vascular congestion, EKG shows sinus rhythm with possible left atrial enlargement and nonspecific ST changes, CT abdomen pelvis showed cirrhosis, mild ascites. Dr. Vincent was consulted-patient seems to have AYALA Patient was admitted for hypertensive emergency, acute renal failure and renal consultation requested for need for dialysis. 10/06/2024 Katalina telemonitor is a park interpreter. Sister Radha at bedside. Labs/medications reviewed. Blood pressure 190/121-on labetalol IV. Blood sugar 138. Hemoglobin 8.0, platelets 241. Sodium 142, potassium 4, chloride 108, bicarbonate 17, anion gap 17, BUN 75, creatinine 9.1, glucose 129, uric acid 9.5, calcium 8, phosphorus 7.2, ferritin 182, iron saturation 20, LFTs normal, troponin 0.2, albumin 2.5, triglycerides 284, LDL 89, urinalysis significant proteinuria. Urine protein/creatinine 15.5 g. Urine anion gap 35. Had a long conversation with the patient and sister that despite medical management he did not improve his kidney function. He will need dialysis. No role for biopsy due to his underlying longstanding poorly controlled hypertension and diabetes for years. Patient and sister had several questions. More than 45 minutes were spent and finally they agreed for dialysis. Will plan for dialysis in a.m. 10/07/24 patient was seen at bedside, questions and concerns were answered in detail, blood pressure 149/81, scheduled for dialysis catheter placement today. Urine output 450 mL overnight, positive fluid balance 1200 mL. Plan for hemodialysis after tunneled cath. BUN 72, creatinine 9.0, EGFR 7. Sodium 140, potassium 4.0, chloride 110, bicarb 17.1. 10/08/2024: Patient seen and examined at bedside this morning. No acute overnight events. Patient with approximately 500 cc urine output. Vitals, labs reviewed. Patient remains hypertensive with SBP 170?200, on nicardipine and valsartan with as needed labetalol. Recommend to change nicardipine to nifedipine XL upon discharge, and increased valsartan to 320 mg. Recommend adding a beta-derek as HR and BP can tolerate. Hemoglobin stable at 8; no signs of bleed at this time. Can continue with Epo at HD. Panel showing improvement in bicarb & creatinine. Will continue with hemodialysis. Corrected calcium 8.0, phosphorus 6.0. Pending alpha-1 antitrypsin, ceruloplasmin. At bedside, patient states he is fatigued and tired. He was scheduled for an EGD today however states he would like to do it at a later time. 10/09/2024: Patient seen and examined at bedside. No acute overnight events. Vitals stable, with improvement in BP on adjusted antihypertensive regimen. CBC stable, chem panel pending. Will continue with day 3 HD. PPD negative, pending outpatient chair. Patient in better spirits today. 10/10/2024: Patient seen and examined at bedside. No acute overnight events. Patient complains of feeling fatigued. This may be related to aggressive blood pressure control. Recommend to discontinue Bumex as patient is not making urine at this time. Plan to continue hemodialysis. Outpatient chair time has been set up for 9:20 AM to 12:20 PM on Saturday 10/14. Patient is stable for discharge on 10/11 after hemodialysis. Vitals stable, labs reviewed. Hemoglobin 8.1 noted. 10/11/2024 patient seen and examined at bedside, no acute overnight events, will get scheduled hemodialysis today. No urine output recorded after discontinuing Bumex, +980 mL fluid balance. WBC 9.6, hemoglobin 7.4, platelet 215, sodium 135, potassium 4.0, BUN 42 creatinine 6.9. The patient can be discharged from nephrology standpoint after hemodialysis today. Exam Vital Signs Temp Pulse Resp BP Pulse Ox O2 Del Method O2 Flow Rate 98.1 F 85 16 141/87 H 99 Room Air 3 10/11/24 13:45 10/11/24 14:29 10/11/24 13:45 10/11/24 14:29 10/11/24 13:45 10/11/24 13:45 10/08/24 20:05 Narrative Exam Gen: AAOx3, in moderate distress, appears tired HEENT: NCAT, PERRLA, EOMI, MMM, facial edema improving; R IJ cath noted CVS: normal S1, S2. RRR. No MRG Resp: CTA B/L. No rhonchi, rales, crackles or wheezing Abd: soft, non-tender, non-distended. BS+ in all 4 quadrants MSK: Good ROM in BUE & BLE. Pitting edema resolved Neuro: CN II-XII grossly intact. no focal deficits appreciated Objective Labs 10/12/24 04:46 10/12/24 04:46 Labs: Laboratory Results - last 24 hr 10/11/24 10/11/24 04:52 04:53 WBC 9.6 RBC 2.54 L Hgb 7.4 L Hct 21.4 L* MCV 84 MCH 29.1 MCHC 34.6 RDW Std Deviation 41.0 Plt Count 275 D Neut % (Auto) 68 Lymph % (Auto) 13 [place] % (Auto) 10 Eos % (Auto) 7 Baso % (Auto) 1 Neut # (Auto) 6.6 Lymph # (Auto) 1.2 [place] # (Auto) 1.0 H Eos # (Auto) 0.7 H Baso # (Auto) 0.1 Immature Gran # (Auto) 0.10 H Absolute Nucleated RBC 0.04 H Immature Gran % 1 H Nucleated RBC % 0 Sodium 135 L Potassium 4.0 Chloride 100 Carbon Dioxide 25.6 Anion Gap 9 BUN 42 H Creatinine 6.9 H* D Estim Creat Clear Calc 10.9 L eGFR 9 L* BUN/Creatinine Ratio 6 L Glucose 134 H Calculated Osmolality 282 Calcium 8.0 L Corrected Calcium 9.1 Phosphorus 3.8 Magnesium 2.1 Total Bilirubin 0.2 L AST 11 ALT < 7 L Alkaline Phosphatase 76 Total Protein 4.2 L Albumin 2.6 L Globulin 1.6 L Albumin/Globulin Ratio 1.6 TSH 1.86 Free T4 1.14 ABG Interpretation ABG results: 10/05/24 12:16 ABG pH 7.32 L ABG pCO2 31 L ABG pO2 101 ABG HCO3 16 L ABG O2 Saturation 99 H ABG Base Excess -9 L Quality Measures Quality Measures VTE prophylaxis (SCDs) Assessment & Plan Assessment Current Active Medications: Generic Name Dose Route Start Last Admin Trade Name Freq PRN Reason Stop Dose Admin Acetaminophen 650 mg 10/05/24 17:00 Acetaminophen 325 Mg Tablet PO 11/04/24 16:59 Q6H PRN Pain 1-3 and/or Fever >100.1 Calcitriol 0.5 mcg 10/08/24 09:00 10/11/24 13:35 Calcitriol 0.25 Mcg Capsule PO 11/07/24 08:59 0.5 mcg QDAY MARNI Administration Calcium Carbonate 600 mg 10/06/24 09:45 10/11/24 13:35 Calcium Carbonate 600 Mg Tablet PO 11/05/24 09:44 600 mg QDAY MARNI Administration Carvedilol 6.25 mg 10/11/24 14:30 10/11/24 14:29 Carvedilol 3.125 Mg Tablet PO 11/10/24 14:29 6.25 mg BIDWM MARNI Administration Dextrose 25 ml 10/05/24 17:18 Dextrose 50%-Water Inj 50 Ml Syringe IV 11/04/24 17:17 Q15MIN PRN BG 50-70 responsive npo pt Dextrose 50 ml 10/05/24 17:18 Dextrose 50%-Water Inj 50 Ml Syringe IV 11/04/24 17:17 Q15MIN PRN BG <50 OR BG <70 & pt unresponsive Famotidine 10 mg 10/06/24 14:30 10/11/24 13:35 Famotidine 20 Mg Tablet PO 11/05/24 14:29 10 mg QDAY MARNI Administration Glucagon 1 mg 10/05/24 17:18 Glucagon Inj 1 Mg Vial IM Q15MIN PRN BG <70, and no IV access Heparin Sodium (Porcine) 3,800 unit 10/07/24 12:35 10/11/24 13:28 Heparin Sod Inj 1000 Unit/Ml Vial 10 Ml INDWELLCAT 10/21/24 12:34 3,800 unit PRN PRN Administration DIALYSIS Insulin Human Lispro 0 unit 10/08/24 21:00 10/11/24 13:31 Insulin Lispro (Admelog) 1 Unit/0.01 Ml Unit SC 11/07/24 20:59 Not Given ACHS MARNI Protocol Labetalol HCl 10 mg 10/07/24 17:20 10/08/24 11:45 Labetalol Inj 5 Mg/Ml Vial 20 Ml IVP 11/04/24 17:22 10 mg Q2H PRN Administration SBP > 170 and HR > 70 Lactulose 10 gm 10/08/24 10:44 Lactulose Syrup 20 Gm/30 Ml Udc PO 11/05/24 13:59 TID PRN constipation Protocol Nifedipine 60 mg 10/08/24 09:15 10/11/24 12:23 Nifedipine Xl 30 Mg Tabcr PO 11/07/24 09:14 60 mg QDAY MARNI Administration Ondansetron HCl 4 mg 10/05/24 17:00 10/05/24 19:30 Ondansetron Inj 2 Mg/Ml Inj 2 Ml IVP 11/04/24 16:59 4 mg Q6H PRN Administration NAUSEA OR VOMITING Protocol Sennosides 1 tab 10/05/24 17:00 10/11/24 08:15 Senna Tablet PO 11/04/24 16:59 1 tab QDAY PRN Administration constipation Protocol Sevelamer Carbonate 800 mg 10/06/24 12:00 10/11/24 13:34 Sevelamer Carbonate 800 Mg Tablet PO 11/05/24 11:59 800 mg TIDWM MARNI Administration Simethicone 80 mg 10/06/24 09:43 Simethicone 80 Mg Chew PO 11/05/24 09:42 QID PRN GAS Valsartan 160 mg 10/08/24 21:00 10/11/24 12:23 Valsartan 80 Mg Tablet PO 11/07/24 20:59 160 mg BID MARNI Administration Vitamin B Complex/Vit C/Folic Acid 1 tab 10/06/24 17:45 10/11/24 13:35 Vit B12/Vit C/Fa (Nephrovite) Tablet PO 11/05/24 17:44 1 tab QDAY MARNI Administration Plan #Worsening CKD #ESRD #Secondary hyperparathyroidism #Hypocalcemia #Anion gap metabolic acidosis, resolved, likely secondary to underlying renal failure Patient transitioning to ESRD, on HD day 3. Likely secondary to uncontrolled hypertension and diabetes Continue HD, calcium carbonate, phosphate binders, Nephro-[place], and calcitriol Hepatitis panel negative; PPD negative Outpatient chair set up: Monday10/14/2024 @ 9:20 AM Ok to discharge patient on 10/11 after hemodialysis #Uncontrolled hypertension #Hypertensive emergency, improved SBP has improved; 130-150s Continue current antihypertensive regimen: Nifedipine, Valsartan, Coreg and prn labetalol Discontinued bumex #Diabetes mellitus SSI, Accu-Cheks every 6 hours #Concern for pericarditis CT abdomen pelvis showed pericardial effusion, concern for pericarditis,, echocardiogram showed small pericardial effusion without any evidence of cardiac tamponade. Noted dilated IVC. Possibly uremic pericarditis Continue with hemodialysis #Anemia of chronic disease #Iron deficiency anemia #Concern for GI bleed Decreased iron stores on labs, serum iron 48, TIBC 230. Likely multifactorial due to anemia of chronic disease and iron deficiency. Patient received IV ferumoxytol and Procrit => can consider continuing Procrit with HD +FOBT, GI following EGD: esophagitis, biopsies sent #Hyperlipidemia Continue Lipitor Patient seen and care discussed with my attending Dr. Clark. Kailey [email or web address] Attending Provider Attestation/Addendum Patient seen and examined with resident physician Dr. Bonner. Note reviewed, agree with findings and recommendations. Patient currently seen on dialysis. Tolerating dialysis without any problems. Hemodialysis for 3 hours, 2K, ultrafiltration 2 L, Epogen 6000, no heparin ordered. Plan of care discussed with the dialysis nurse. Please see dialysis flowsheet for further details. Patient received 4 dialysis sessions. Outpatient dialysis scheduled for Monday, Monday, Monday. Renal stone stable for discharge Start outpatient dialysis Monday. Patient is feeling dizzy from fluctuations in the blood pressure.
[2024-10-11] MEDS: INSULIN LISPRO (AdmeLOG) 1 UNIT/0.01 ML UNIT SC ×2 (17:30→20:30)
[2024-10-11] MEDS: LACTULOSE SYRUP 20 GM/30 ML UDC 10 GM PO (20:28)
[2024-10-12] VITALS (8 sets, daily range): BP systolic 135–165; BP diastolic 76–90; PULSE 69–86; RESP 16–18; TEMP 36.4–36.8; O2SAT 98–99; BMI 29.3
[2024-10-12 05:47] LABS: Basophils % (Auto) 1 % (0-2.5); Eosinophils # (Auto) 0.6 Thou/mm3 (0.0-0.5); Eosinophils % (Auto) 7 % (0-10); Hematocrit 23.2 % (41.0-53.0); Immature Granulocytes % (Auto) 1 % (0-0); Immature Granulocytes Auto 0.08 Thou/mm3 (0.00-0.00); Lymphocytes # (Auto) 1.9 Thou/mm3 (1.0-4.8); Lymphocytes % (Auto) 22 % (10-50); Mean Corpuscular HGB Conc 34.1 g/dl (31.0-37.0); Mean Corpuscular Hemoglobin 28.9 pg (25.0-35.0); Mean Corpuscular Volume 85 fL (80-100); Monocytes # (Auto) 0.9 Thou/mm3 (0.0-0.8); Monocytes % (Auto) 11 % (0-12); Neutrophils # (Auto) 5.2 Thou/mm3 (1.8-7.7); Neutrophils % (Auto) 60 % (37-80); Nucleated Red Blood Cell # 0.09 Thou/mm3 (0.00-0.00); Nucleated Red Blood Cell % 1 /100 WBC (0); Platelet Count 269 Thou/mm3 (140-440); RDW Standard Deviation 41.1 fL (35.1-43.9); Red Blood Count 2.73 Miln/mm3 (4.50-5.90); White Blood Count 8.8 Thou/mm3 (3.8-10.6)
[2024-10-12 05:55] LABS: Hemoglobin 7.9 g/dL (13.5-16.0)
[2024-10-12 06:37] LABS: Alanine Aminotransferase 8 U/L (10-49); Albumin, Serum 2.8 gm/dL (3.5-5.0); Albumin/Globulin Ratio 1.8 (1.2-2.2); Alkaline Phosphatase 77 U/L (46-116); Anion Gap 9 (7-16); BUN/Creatinine Ratio 6 Ratio (12-20); Bilirubin,Total 0.2 mg/dL (0.3-1.2); Blood Urea Nitrogen 33 mg/dL (9-23); Calcium 8.4 mg/dL (8.3-10.6); Calcium (Corrected) 9.4 mg/dL (8.5-10.1); Chloride 98 mMol/L (98-107); Creatinine (Component) 5.6 mg/dL (0.6-1.3); Estimated Creatinine Clearance 13.5 mL/min (>60); Globulin 1.6 gm/dL (2.3-3.5); Glucose 125 mg/dL (74-106); Osmolality,Calculated 280 (275-295); Potassium 4.3 mMol/L (3.4-5.1); Sodium 136 mMol/L (136-145); Total Protein 4.4 gm/dL (5.7-8.2); eGFR 12 See Note
[2024-10-12] MEDS: carVEDILOL 3.125 MG TABLET 6.25 MG PO (07:41)
[2024-10-12] MEDS: SEVELAMER CARBONATE 800 MG TABLET PO (07:41)
[2024-10-12] MEDS: NIFEdipine XL 30 MG TABCR 60 MG PO (08:18)
[2024-10-12] MEDS: CALCITRIOL 0.25 mCg CAPSULE 0.5 MCG PO (08:20)
[2024-10-12] MEDS: VALSARTAN 80 MG TABLET 160 MG PO (08:20)
[2024-10-12] MEDS: FAMOTIDINE 20 MG TABLET 10 MG PO (08:21)
[2024-10-12] MEDS: CALCIUM CARBONATE 600 MG TABLET PO (08:21)
[2024-10-12] MEDS: VIT B12/Vit C/FA (Nephrovite) TABLET 1 TAB PO (08:21)
--- NOTE | 2024-10-12 08:43 | PD.RESPRO ---
Documentation for date of: 10/12/24 Subjective Subjective Interval history: Interval history: Informant Sister Radha, patient hourly sign language interpreter Katalina, vehicle monitor technician. Mr. Cardenas is a 49-year-old male with past medical history of hypertension x 20 years, gastritis, type 2 diabetes x8 yrs, noncompliant and does not follow-up with a primary care physician for several years presenting to the ED on 10/05/2024 with several days of abdominal discomfort and nausea. Patient was vacationing in [place] to visit his sister. He is from [place]. patient has not been eating well for the past week or so and has been having chills on and off. Patient does not take any home medications at this time but has been told in the past that he has kidney problems, high blood pressure and diabetes. Patient denies any sick contacts or recent travel; moreover, denies having any chest pain, palpitations but does state that he periodically gets blurry vision, headaches and dizziness. Sister noticed that he is having some swelling in the lower extremities. Home medications apparently was on insulin but not taking. Denies any alcohol, smoking, illicit drug use. In the ED, patient presented hypertensive emergency with systolic blood pressure 219 and diastolic 122, heart rate 98, respiratory 20, afebrile satting 100 on room air. Pertinent lab findings included WBC 9.9, hemoglobin 10.8 with MCV of 83, ABG showed pH of 7.32, [id number], [id number] and bicarb of 16. Patient has acute renal failure with a BUN of 79, creatinine 9.4 and anion gap of 17, lactic acid 1.0, troponin 0.252, BNP 786. Chest x-ray shows mild vascular congestion, EKG shows sinus rhythm with possible left atrial enlargement and nonspecific ST changes, CT abdomen pelvis showed cirrhosis, mild ascites. Dr. Vincent was consulted-patient seems to have AYALA Patient was admitted for hypertensive emergency, acute renal failure and renal consultation requested for need for dialysis. 10/06/2024 Katalina telemonitor is a hourly sign language interpreter. Sister Radha at bedside. Labs/medications reviewed. Blood pressure 190/121-on labetalol IV. Blood sugar 138. Hemoglobin 8.0, platelets 241. Sodium 142, potassium 4, chloride 108, bicarbonate 17, anion gap 17, BUN 75, creatinine 9.1, glucose 129, uric acid 9.5, calcium 8, phosphorus 7.2, ferritin 182, iron saturation 20, LFTs normal, troponin 0.2, albumin 2.5, triglycerides 284, LDL 89, urinalysis significant proteinuria. Urine protein/creatinine 15.5 g. Urine anion gap 35. Had a long conversation with the patient and sister that despite medical management he did not improve his kidney function. He will need dialysis. No role for biopsy due to his underlying longstanding poorly controlled hypertension and diabetes for years. Patient and sister had several questions. More than 45 minutes were spent and finally they agreed for dialysis. Will plan for dialysis in a.m. 10/07/24 patient was seen at bedside, questions and concerns were answered in detail, blood pressure 149/81, scheduled for dialysis catheter placement today. Urine output 450 mL overnight, positive fluid balance 1200 mL. Plan for hemodialysis after tunneled cath. BUN 72, creatinine 9.0, EGFR 7. Sodium 140, potassium 4.0, chloride 110, bicarb 17.1. 10/08/2024: Patient seen and examined at bedside this morning. No acute overnight events. Patient with approximately 500 cc urine output. Vitals, labs reviewed. Patient remains hypertensive with SBP 170?200, on nicardipine and valsartan with as needed labetalol. Recommend to change nicardipine to nifedipine XL upon discharge, and increased valsartan to 320 mg. Recommend adding a beta-derek as HR and BP can tolerate. Hemoglobin stable at 8; no signs of bleed at this time. Can continue with Epo at HD. Panel showing improvement in bicarb & creatinine. Will continue with hemodialysis. Corrected calcium 8.0, phosphorus 6.0. Pending alpha-1 antitrypsin, ceruloplasmin. At bedside, patient states he is fatigued and tired. He was scheduled for an EGD today however states he would like to do it at a later time. 10/09/2024: Patient seen and examined at bedside. No acute overnight events. Vitals stable, with improvement in BP on adjusted antihypertensive regimen. CBC stable, chem panel pending. Will continue with day 3 HD. PPD negative, pending outpatient chair. Patient in better spirits today. 10/10/2024: Patient seen and examined at bedside. No acute overnight events. Patient complains of feeling fatigued. This may be related to aggressive blood pressure control. Recommend to discontinue Bumex as patient is not making urine at this time. Plan to continue hemodialysis. Outpatient chair time has been set up for 9:20 AM to 12:20 PM on Saturday 10/14. Patient is stable for discharge on 10/11 after hemodialysis. Vitals stable, labs reviewed. Hemoglobin 8.1 noted. 10/11/2024 patient seen and examined at bedside, no acute overnight events, will get scheduled hemodialysis today. No urine output recorded after discontinuing Bumex, +980 mL fluid balance. WBC 9.6, hemoglobin 7.4, platelet 215, sodium 135, potassium 4.0, BUN 42 creatinine 6.9. The patient can be discharged from nephrology standpoint after hemodialysis today. 10/12/2024, patient examined at bedside, anxious, sitting at the side of bed, patient is concerned about weakness, reports feeling and dizzy on trying to stand up. Discharge was canceled yesterday due to high blood pressure, systolic blood pressure in the 70s, increased carvedilol 6.25 mg twice daily, blood pressure currently within normal limits. Helped the patient to get out of bed and walk the hallway, patient reported he feels deconditioned and would like to be more active and go out in the sun. Agrees with discharge planning and wants to go home, from nephrology standpoint the patient can be discharged home, will be followed up outpatient at dialysis center. Sodium 135, potassium 4.3, BUN 33, creatinine 5.6. Exam Vital Signs Temp Pulse Resp BP Pulse Ox O2 Del Method O2 Flow Rate 98.1 F 69 18 158/90 H 98 Room Air 3 10/12/24 08:00 10/12/24 08:20 10/12/24 08:00 10/12/24 08:20 10/12/24 08:00 10/12/24 08:00 10/08/24 20:05 Narrative Exam Gen: AAOx3, mildly anxious, appears tired HEENT: NCAT, PERRLA, EOMI, MMM, facial edema improving; R IJ cath noted CVS: normal S1, S2. RRR. No MRG Resp: CTA B/L. No rhonchi, rales, crackles or wheezing Abd: soft, non-tender, non-distended. BS+ in all 4 quadrants MSK: Good ROM in BUE & BLE. Pitting edema resolved Neuro: CN II-XII grossly intact. no focal deficits appreciated Objective Labs 10/12/24 04:46 10/12/24 04:46 Labs: Laboratory Results - last 24 hr 10/11/24 10/12/24 04:52 04:46 WBC 8.8 RBC 2.73 L Hgb 7.9 L Hct 23.2 L MCV 85 MCH 28.9 MCHC 34.1 RDW Std Deviation 41.1 Plt Count 269 Neut % (Auto) 60 Lymph % (Auto) 22 [place] % (Auto) 11 Eos % (Auto) 7 Baso % (Auto) 1 Neut # (Auto) 5.2 Lymph # (Auto) 1.9 [place] # (Auto) 0.9 H Eos # (Auto) 0.6 H Baso # (Auto) 0.0 Immature Gran # (Auto) 0.08 H Absolute Nucleated RBC 0.09 H Immature Gran % 1 H Nucleated RBC % 1 H Sodium 136 Potassium 4.3 Chloride 98 Carbon Dioxide 29.0 Anion Gap 9 BUN 33 H Creatinine 5.6 H* D Estim Creat Clear Calc 13.5 L eGFR 12 L* BUN/Creatinine Ratio 6 L Glucose 125 H Calculated Osmolality 280 Calcium 8.4 Corrected Calcium 9.4 Phosphorus 3.0 Magnesium 2.0 Total Bilirubin 0.2 L ALT 8 L Alkaline Phosphatase 77 Total Protein 4.4 L Albumin 2.8 L Globulin 1.6 L Albumin/Globulin Ratio 1.8 TSH 1.86 Free T4 1.14 ABG Interpretation ABG results: 10/05/24 12:16 ABG pH 7.32 L ABG pCO2 31 L ABG pO2 101 ABG HCO3 16 L ABG O2 Saturation 99 H ABG Base Excess -9 L Quality Measures Quality Measures VTE prophylaxis (SCDs) Assessment & Plan Assessment Current Active Medications: Generic Name Dose Route Start Last Admin Trade Name Freq PRN Reason Stop Dose Admin Acetaminophen 650 mg 10/05/24 17:00 Acetaminophen 325 Mg Tablet PO 11/04/24 16:59 Q6H PRN Pain 1-3 and/or Fever >100.1 Calcitriol 0.5 mcg 10/08/24 09:00 10/12/24 08:20 Calcitriol 0.25 Mcg Capsule PO 11/07/24 08:59 0.5 mcg QDAY MARNI Administration Calcium Carbonate 600 mg 10/06/24 09:45 10/12/24 08:21 Calcium Carbonate 600 Mg Tablet PO 11/05/24 09:44 600 mg QDAY MARNI Administration Carvedilol 6.25 mg 10/11/24 14:30 10/12/24 07:41 Carvedilol 3.125 Mg Tablet PO 11/10/24 14:29 6.25 mg BIDWM MARNI Administration Dextrose 25 ml 10/05/24 17:18 Dextrose 50%-Water Inj 50 Ml Syringe IV 11/04/24 17:17 Q15MIN PRN BG 50-70 responsive npo pt Dextrose 50 ml 10/05/24 17:18 Dextrose 50%-Water Inj 50 Ml Syringe IV 11/04/24 17:17 Q15MIN PRN BG <50 OR BG <70 & pt unresponsive Famotidine 10 mg 10/06/24 14:30 10/12/24 08:21 Famotidine 20 Mg Tablet PO 11/05/24 14:29 10 mg QDAY MARNI Administration Glucagon 1 mg 10/05/24 17:18 Glucagon Inj 1 Mg Vial IM Q15MIN PRN BG <70, and no IV access Heparin Sodium (Porcine) 3,800 unit 10/07/24 12:35 10/11/24 13:28 Heparin Sod Inj 1000 Unit/Ml Vial 10 Ml INDWELLCAT 10/21/24 12:34 3,800 unit PRN PRN Administration DIALYSIS Insulin Human Lispro 0 unit 10/08/24 21:00 10/12/24 07:41 Insulin Lispro (Admelog) 1 Unit/0.01 Ml Unit SC 11/07/24 20:59 Not Given ACHS MARNI Protocol Labetalol HCl 10 mg 10/07/24 17:20 10/08/24 11:45 Labetalol Inj 5 Mg/Ml Vial 20 Ml IVP 11/04/24 17:22 10 mg Q2H PRN Administration SBP > 170 and HR > 70 Lactulose 10 gm 10/08/24 10:44 10/11/24 20:28 Lactulose Syrup 20 Gm/30 Ml Udc PO 11/05/24 13:59 10 gm TID PRN Administration constipation Protocol Nifedipine 60 mg 10/08/24 09:15 10/12/24 08:18 Nifedipine Xl 30 Mg Tabcr PO 11/07/24 09:14 60 mg QDAY MARNI Administration Ondansetron HCl 4 mg 10/05/24 17:00 10/05/24 19:30 Ondansetron Inj 2 Mg/Ml Inj 2 Ml IVP 11/04/24 16:59 4 mg Q6H PRN Administration NAUSEA OR VOMITING Protocol Sennosides 1 tab 10/05/24 17:00 10/11/24 08:15 Senna Tablet PO 11/04/24 16:59 1 tab QDAY PRN Administration constipation Protocol Sevelamer Carbonate 800 mg 10/06/24 12:00 10/12/24 07:41 Sevelamer Carbonate 800 Mg Tablet PO 11/05/24 11:59 800 mg TIDWM MARNI Administration Simethicone 80 mg 10/06/24 09:43 Simethicone 80 Mg Chew PO 11/05/24 09:42 QID PRN GAS Valsartan 160 mg 10/08/24 21:00 10/12/24 08:20 Valsartan 80 Mg Tablet PO 11/07/24 20:59 160 mg BID MARNI Administration Vitamin B Complex/Vit C/Folic Acid 1 tab 10/06/24 17:45 10/12/24 08:21 Vit B12/Vit C/Fa (Nephrovite) Tablet PO 11/05/24 17:44 1 tab QDAY MARNI Administration Plan #Worsening CKD #ESRD #Secondary hyperparathyroidism #Hypocalcemia #Anion gap metabolic acidosis, resolved, likely secondary to underlying renal failure Patient transitioning to ESRD, on HD day 3. Likely secondary to uncontrolled hypertension and diabetes Continue HD, calcium carbonate, phosphate binders, Nephro-Kandy, and calcitriol Hepatitis panel negative; PPD negative Outpatient chair set up: Monday10/14/2024 @ 9:20 AM Ok to discharge patient on 10/11 after hemodialysis Patient can be discharged from nephrology standpoint #Uncontrolled hypertension #Hypertensive emergency, improved SBP has improved; 130-150s Continue current antihypertensive regimen: Nifedipine, Valsartan, Coreg and prn labetalol Discontinued bumex #Diabetes mellitus SSI, Accu-Cheks every 6 hours #Concern for pericarditis CT abdomen pelvis showed pericardial effusion, concern for pericarditis,, echocardiogram showed small pericardial effusion without any evidence of cardiac tamponade. Noted dilated IVC. Possibly uremic pericarditis Continue with hemodialysis #Anemia of chronic disease #Iron deficiency anemia #Concern for GI bleed Decreased iron stores on labs, serum iron 48, TIBC 230. Likely multifactorial due to anemia of chronic disease and iron deficiency. Patient received IV ferumoxytol and Procrit => can consider continuing Procrit with HD +FOBT, GI following EGD: esophagitis, biopsies sent #Hyperlipidemia Continue Lipitor Patient seen and care discussed with my attending Dr. Clark. Kailey pgy2 Attending Provider Attestation/Addendum Patient seen and examined with resident physician Dr. Bonner. Note reviewed, agree with findings and recommendations. Patient received 4 dialysis sessions. Outpatient dialysis scheduled for Monday, Monday, Monday. Renal stone stable for discharge Start outpatient dialysis Monday. Patient is feeling dizzy from fluctuations in the blood pressure. Hopefully will improve in the next 1 week. Follow-up with me in 1 to 2 weeks
--- NOTE | 2024-10-12 15:44 | ESDS_ITS ---
<Statement entered by Aurelia Bocanegra DO - 10/13/24 11:44> I, Aurelia Bocanegra DO, attest that I was physically present for the lewis portions of the service and evaluated the patient with the resident and I reviewed and discussed the case with the resident and agree with the resident's findings and plans of care as documented above <Statement entered by Kt Saavedra MD - 10/13/24 11:21> I discussed with and supervised the product development intern physician involved in the care of this patient. Patient assessment and plan was discussed with entire medicine team, including my attending. I agree with the assessment and plan as documented by product development intern doctor. Patient care was discussed with my attending physician Dr.Lau Kt Saavedra, PGY-2 Planned Discharge Date 10/12/24 DS: Providers Provider Date of admission: 10/05/24 17:00 Primary care physician: Physician Marla Primary/Family Admitting Provider: Rita Nowak MD Attending Provider on Admission: Aurelia Bocanegra DO Consults: 10/05/24 17:27 Consult to Cardiology Routine Comment: Small pericardial effusion, ARF, troponin Consulting Provider: Stephan Beltran 10/05/24 17:33 Consult to Nephrology Routine Comment: Consulting Provider: Agustín Clark 10/06/24 09:41 Consult to Gastroenterology Routine Comment: new liver cirrhosis, no alcohol, hep panel pendng Consulting Provider: Dinah Vincent 10/08/24 05:57 Referral Discharge Planning Routine Comment: Outpatient dialysis unit Attending Provider on DC: Mara Sadler MD Discharging Provider: Mara Sadler MD DS: Diagnosis Problem List Completed Was Problem List Reviewed/Reconciled?: Yes Hospital Course Hospital Course Hospital course: The patient is a 49-year-old male with previous medical history of hypertension, gastritis, type 2 diabetes? who was brought into the hospital on 10/05 due to abdominal discomfort and nausea. Previously patient was not able to eat well for the past week, had chills on and off. He was not taking any home medications. In the ED he was found to have blood pressure of 219/122, heart rate 98, respiratory rate 20, he was afebrile, saturating well on room air. Labs showed WBC count of 9.9, hemoglobin 10.8, ABG showed pH of 7.32, pCO2 31, bicarb of 16. Chemistry showed uremia, hypocalcemia, hemoglobin A1c 5.7. Abdominal CT showed cirrhosis and mild ascites. He had a week and 3-day nephrology was consulted, patient started hemodialysis. He was also started on blood pressure medications and simvastatin. Patient had outpatient dialysis scheduled. There was also a concern for possible GI bleed due to liver cirrhosis and upper GI symptoms, GI was consulted, lab work was ordered. EGD was performed, was negative for acute bleeding. Patient was seen and examined at the bedside is medically cleared for discharge home 10/12/24. Hospital diagnosis: GILLIAN on CKD 2/2 diabetic/hypertensive nephrosclerosis ESRD on HD Nephrotic range proteinuria Hypertensive emergency (resolved) HTN in setting of ARF/ increased RAAS response Positive orthostatics hypotension Dizziness Decompensated liver cirrhosis, unspecified etiology Acute GI bleed anemia (stable) Normocytic anemia, iron deficiency vs. anemia of chronic disease IDDM type II Metabolic acidosis (resolved) NSTEMI, likely type II, demand ischemia (stable) Small pericardial effusion, likely uremic (stable) Hypocalcemia (improving) Hyperphosphatemia (improving) Abdominal bloating (resolved) in setting of: Mild small bowel ileus Discharge recommendations: * Follow-up with PCP within 1-2 weeks of discharge. * Follow-up with your PCP for the results of your lab test for [id number], ceruloplasmin, JESSICA, copper levels * Take carvedilol 6.25 mg two time a day with meals * Take nifedipine 30 mg once daily * Take valsartan 160 mg once daily * Take simvastatin 20 mg once daily * Take famotidine 20 mg every day for 30 days * Please call [facility] at phone number below for the next 1 to 2 weeks. * Follow-up with GI, Dr. Vincent, within 1 to 2 weeks to review liver panel. * Follow-up with nephrology, Dr. Clark within 1-2 weeks of discharge * Continue hemodialysis Monday, Monday, and Monday at [facility]. * Return to Emergency Room if symptoms persist, worsen, or new symptoms develop. * Continue taking medications as prescribed below. Plan of care discussed with attending Dr. Bocanegra and PGY-2 Dr. Saavedra. Mara Sadler MD, PGY 1. Time Spent with Patient Time attestation: Total time spent providing and/or coordinating discharge services: Time spent: Greater than 30 minutes Exam Vital Signs Temp Pulse Resp BP Pulse Ox O2 Del Method O2 Flow Rate 97.5 F 71 18 143/83 H 99 Room Air 3 10/12/24 12:15 10/12/24 12:15 10/12/24 12:15 10/12/24 12:15 10/12/24 12:15 10/12/24 12:15 10/08/24 20:05 Narrative Exam Physical Exam General: Awake and in no acute distress. Conversational and non-toxic appearing. HEENT: Normocephalic, atraumatic, mucous membranes moist. Heart: Regular rate and rhythm, no murmurs. Lungs: Clear to auscultation with no wheezing or crackles. Abdomen: Soft, nondistended, nontender, positive bowel sounds. ?No guarding or rebound tenderness. Neurologic: Alert and oriented x3, no gross neurological deficit, and patient able to move all 4 extremities. Extremities: No edema. Skin: No rash or ecchymoses. Discharge Plan Plan Patient Disposition: HOME (Self Care) Patient condition on transfer: Stable Care Plan Goals: * Follow-up with PCP within 1-2 weeks of discharge. * Follow-up with your PCP for the results of your lab test for alpha-1- antitrypsin, ceruloplasmin, JESSICA, copper levels * Take carvedilol 6.25 mg two time a day with meals * Take nifedipine 30 mg once daily * Take valsartan 160 mg once daily * Take simvastatin 20 mg once daily * Take famotidine 20 mg every day for 30 days * Please call [facility] at phone number below for the next 1 to 2 weeks. * Follow-up with GI, Dr. Vincent, within 1 to 2 weeks to review liver panel. * Follow-up with nephrology, Dr. Clark within 1-2 weeks of discharge * Continue hemodialysis Monday, Monday, and Monday at [facility] [place]. * Return to Emergency Room if symptoms persist, worsen, or new symptoms develop. * Continue taking medications as prescribed below. [facility] [address] [place] [address] Consulte con yang m?dico de cabecera dentro de 1 a 2 semanas despu?s del vinayak. ? Consulte con yang m?dico de cabecera para obtener los resultados de lizy an?lisis de laboratorio de [id number], cerulosmina, JESSICA y niveles de cobre. ? [place] carvedilol 6.25 mg dos veces al d?a con las comidas. ? [place] nifedipino 30 mg wayne vez al d?a. ? [place] valsart?n 160 mg wayne vez al d?a. ? [place] simvastatina 20 mg wayne vez al d?a. ? [place] famotidina 20 mg todos los d?as carli 30 d?as. ? Llame al [facility] [place] [facility]all al n?skyler de tel?fono que aparece a continuaci?n carli las pr?ximas 1 a 2 semanas. ? Consulte con el gastroenter?logo, Dr. Vincent, dentro de 1 a 2 semanas para revisar el perfil hep?sowmya. ? Seguimiento con nefrolog?a, Dr. Clark, dentro de 1 a 2 semanas despu?s del vinayak. ? Continuar con hemodi?lisis los lunes, mi?rcoles y viernes en [facility] di?lisis [place]. ? Regresar a Urgencias si los s?ntomas persisten, empeoran o aparecen nuevos. ? Continuar tomando los medicamentos seg?n lo prescrito a continuaci?n. [facility] [place] [facility] [address] [place] [address] Prescriptions/Referrals Prescriptions/Med Rec: New carvedilol 6.25 mg tablet 6.25 mg PO BIDWM Qty: 60 0RF nifedipine 30 mg Tablet Extended Release 24hr 60 mg PO QDAY Qty: 30 0RF valsartan 80 mg Tablet 160 mg PO BID Qty: 60 0RF Nephro-Kandy 0.8 mg Tablet 1 tab PO QDAY Qty: 30 0RF simvastatin 20 mg tablet 20 mg PO QDAY Qty: 30 0RF famotidine 20 mg tablet 20 mg PO QDAY Qty: 30 0RF Discontinued insulin glargine [Lantus U-100 Insulin] 100 unit/mL solution 15 unit subcut HS Referrals: No Primary/Family,Physician [Primary Care Provider] - Patient/Caregiver Discharge Instructions Meds to Beds: No Discharge Activity: activity as tolerated Other Discharge Activity Instructions:: ? Follow-up with GI within 1-2 weeks for EGD biopsy results. ? Seguimiento con GI dentro de 1-2 semanas para obtener los resultados de la biopsia EGD. Hemodialysis on M/W/F @ 9:20-12:20 at [facility] dialysis center [address], [place] [address] Continuar con hemodi?lin richard?rcoles y viernes en el centro de di?[facility] 9:20 en [facility] Education Materials: Understanding Cirrhosis, Anemia and Kidney Disease, Acute Kidney Failure Dc, ED High Blood Pressure ... Print Language: Nepalese Stand Alone Forms: Lori Award Info., Patient Portal Info Letter Discharge Order Discharge Orders: Discharge (Routine); Ordered 10/12/24 Ordered By: Mara Sadler Quality Discharge Quality Measures VTE prophylaxis
[2024-10-14 06:45] LABS: ANA Screen, IFA NEGATIVE (NEGATIVE); Alpha-1-Antitrypsin* 124 mg/dL (83-199); Ceruloplasmin* 16 mg/dL (14-30); Copper* 63 mcg/dL (70-175); Mitochondrial Ab NEGATIVE (NEGATIVE)
== END 2024-10-12 12:30 | disposition home or self-care (01) | DRG 469 ==
LOC: SERX 13:18 → SERHOLD 17:14 → S2NX 21:51
PROVIDERS: Internal Medicine; Specialist; Student in an Organized Health Care Education/Training Program; Admitting Provider Student in an Organized Health Care Education/Training Program; Emergency Provider Emergency Medicine; Visit Provider Internal Medicine
PROC: 0DB78ZX Excision of Stomach, Pylorus, Via Natural or Artificial Opening Endoscopic, Diagnostic (ICD-10-PCS; CPT 43239; principal; 2024-10-08 18:00)
DX: N17.9 Acute kidney failure, unspecified (principal); E11.22 Type 2 diabetes mellitus with diabetic chronic kidney disease; R18.8 Other ascites; K76.0 Fatty (change of) liver, not elsewhere classified; K74.60 Unspecified cirrhosis of liver; I31.39 Other pericardial effusion (noninflammatory); I16.1 Hypertensive emergency; E87.70 Fluid overload, unspecified; I21.A1 Myocardial infarction type 2; E83.51 Hypocalcemia; E83.39 Other disorders of phosphorus metabolism; K56.7 Ileus, unspecified; D62 Acute posthemorrhagic anemia; D50.9 Iron deficiency anemia, unspecified; I95.9 Hypotension, unspecified; D63.1 Anemia in chronic kidney disease; E78.5 Hyperlipidemia, unspecified; E87.29 Other acidosis; Z79.4 Long term (current) use of insulin; K20.91 Esophagitis, unspecified with bleeding; K29.70 Gastritis, unspecified, without bleeding; E87.8 Other disorders of electrolyte and fluid balance, not elsewhere classified; I12.0 Hypertensive chronic kidney disease with stage 5 chronic kidney disease or end stage renal disease; N18.6 End stage renal disease; N25.81 Secondary hyperparathyroidism of renal origin; Z79.899 Other long term (current) drug therapy; Z99.2 Dependence on renal dialysis; Z91.148 Patient's other noncompliance with medication regimen for other reason
CPT/HCPCS: 36415; 36600; 70450; 71045; 74018; 74176; 76705; 76770; 76937; 77001; 80048; 80053; 80061; 80069; 80074; 81001; 82010; 82043; 82103; 82105; 82270; 82390; 82436; 82525; 82570; 82728; 82803; 83036; 83540; 83550; 83605; 83690; 83735; 83880; 83970; 84100; 84133; 84145; 84156; 84300; 84439; 84443; 84484; 84550; 85025; 85046; 85610; 85730; 86038; 86255; 86580; 87040; 87086; 87340; 93005; 93306; 96361; 96365; 96375; 96376; 99291; C1750; C1894; J0360; J0696; J1200; J1642; J1643; J1815; J1938; J2250; J2405; J3010; J3475; J3490; J7030; J7050; Q0138; Q5105; Q5106; A9270; J1920

== ENCOUNTER 2024-11-02 07:48 | Emergency (ER) | payer MEDICAID, SELFPAY ==
[2024-11-02 07:50] VITALS: BMI 24.2
[2024-11-02 08:11] VITALS: BP 172/87; PULSE 100; RESP 18; TEMP 37; O2SAT 97; BMI 23.4
--- NOTE | 2024-11-02 08:19 | EDRME_ITS ---
Rapid Medical Screening Exam RME Arrival date/time: 11/02/24 07:48 This is a 49-year-old male that comes in with complaints of nausea, vomiting and abdominal pain for the past 3 days. Patient states he also has a hiccups. Patient is a chronic dialysis patient last dialysis was done yesterday. Patient has a history of high blood pressure diabetes and hyperlipidemia. Patient denies any new medications any drug use or alcohol use. I have greeted and performed a focused initial assessment of this patient. I nitial appropriate labs ordered at this time. A comprehensive ED assessment and evaluation of the patient and analysis of all test and completion of medical decision making process will be conducted by additional ED provider. Chief Complaint: Nausea/Vomiting/Diarrhea Time Seen by Provider: 11/02/24 07:53 Vital signs: Vital Signs Temperature 98.6 F 11/02/24 08:11 Pulse Rate 100 11/02/24 08:11 Respiratory Rate 18 11/02/24 08:11 Blood Pressure 172/87 H 11/02/24 08:11 Pulse Oximetry (%) 97 11/02/24 08:11 Oxygen Delivery Method Room Air 11/02/24 08:11
[2024-11-02] MEDS: ONDANSETRON ODT 4 MG TABRAP PO ×2 (08:30→19:34)
[2024-11-02 09:00] LABS: Basophils % (Auto) 0 % (0-2.5); Eosinophils % (Auto) 0 % (0-10); Hematocrit 33.1 % (41.0-53.0); Hemoglobin 10.9 g/dL (13.5-16.0); Immature Granulocytes % (Auto) 1 % (0-0); Lymphocytes % (Auto) 6 % (10-50); Mean Corpuscular HGB Conc 32.9 g/dl (31.0-37.0); Mean Corpuscular Hemoglobin 28.3 pg (25.0-35.0); Mean Corpuscular Volume 86 fL (80-100); Monocytes # (Auto) 0.4 Thou/mm3 (0.0-0.8); Monocytes % (Auto) 3 % (0-12); Neutrophils # (Auto) 13.4 Thou/mm3 (1.8-7.7); Neutrophils % (Auto) 90 % (37-80); Nucleated Red Blood Cell # 0.03 Thou/mm3 (0.00-0.00); Nucleated Red Blood Cell % 0 /100 WBC (0); Platelet Count 618 Thou/mm3 (140-440); RDW Standard Deviation 43.9 fL (35.1-43.9); Red Blood Count 3.85 Miln/mm3 (4.50-5.90); White Blood Count 14.9 Thou/mm3 (3.8-10.6)
[2024-11-02 10:01] LABS: Alanine Aminotransferase 7 U/L (10-49); Albumin, Serum 3.7 gm/dL (3.5-5.0); Albumin/Globulin Ratio 1.3 (1.2-2.2); Alkaline Phosphatase 115 U/L (46-116); Anion Gap 14 (7-16); Aspartate Amino Transferase < 8 U/L (0-34); BUN/Creatinine Ratio 4 Ratio (12-20); Bilirubin,Total 0.3 mg/dL (0.3-1.2); Blood Urea Nitrogen 26 mg/dL (9-23); Calcium 8.8 mg/dL (8.3-10.6); Carbon Dioxide 25.6 mMol/L (20.0-31.0); Chloride 98 mMol/L (98-107); Estimated Creatinine Clearance 11.4 mL/min (>60); Globulin 2.9 gm/dL (2.3-3.5); Glucose 209 mg/dL (74-106); Lipase 25 U/L (12-53); Osmolality,Calculated 286 (275-295); Potassium 4.8 mMol/L (3.4-5.1); Sodium 138 mMol/L (136-145); Total Protein 6.6 gm/dL (5.7-8.2); eGFR 11 See Note
--- NOTE | 2024-11-02 12:49 | XR_ITS ---
Examination: CT abdomen and pelvis without contrast. Coronal 3-D reconstructions. Sagittal 2-D reconstructions. Date and time of exam:November 02, 2024, 1329 hrs. Comparison September 15, 2024 Indications: Abdominal pain nausea vomiting today CTDI: vol (mGy): 5.83 DLP: (mGycm): 334 Technique: Axial images of the abdomen have been obtained, 3 mm slice thickness Intravenous contrast material has not been administered. Low dose protocols were performed. One or more of the following dose reduction techniques were used; automated exposure control, adjustment of the mA and/or KV according to patient size, use of iterative reconstruction technique. Findings: Liver irregular in contour, trace ascites No gallstones. Spleen not enlarged No pancreatic or adrenal mass No renal or ureteral calculi, no hydronephrosis Aorta normal size Normal appendix No bowel obstruction No diverticulitis Urinary bladder intact Moderate prostatomegaly Impression: Cirrhosis, trace ascites Negative for pancreatitis No renal or ureteral calculi, no hydronephrosis Normal appendix No bowel obstruction or diverticulitis
--- NOTE | 2024-11-02 12:50 | EDNOTE_ITS ---
<Statement entered by Alma Sánchez MD - 11/02/24 19:16> As co-signing physician, I was present and available for consult prn. I concur with the plan and care as documented by the midlevel provider. Nausea/Vomit./Diarrhea-RME/HPI General Chief complaint: Nausea/Vomiting/Diarrhea Stated complaint: NAUSEA/VOMITING x 2 DAYS Time Seen by Provider: 11/02/24 07:53 Arrival date/time: 11/02/24 07:48 RME / HPI RME / HPI Narrative: 49-year-old male that comes in with complaints of nausea, vomiting and abdominal pain for the past 3 days. Patient states he also has a hiccups. Patient is a chronic dialysis patient last dialysis was done yesterday. Patient has a history of high blood pressure diabetes and hyperlipidemia. Patient denies any new medications any drug use or alcohol use. Patient denies any fever. Denies any other complaints. Related Data Previous Rx's ?Medication ?Instructions ?Recorded carvedilol 6.25 mg tablet 6.25 mg PO BIDWM #60 tabs nifedipine 30 mg tablet,extended 60 mg (2 x 30 mg) PO QDAY #30 tabs 10/11/24 release 24 hr simvastatin 20 mg tablet 20 mg PO QDAY #30 tabs 10/11 valsartan 80 mg tablet 160 mg (2 x 80 mg) PO BID #6 0 tabs 10/11/24 vitamin B complex-vitamin C-folic 1 tab PO QDAY #30 ta bs 10/11/24 acid 0.8 mg tablet (Nephro-Kandy) famotidine 20 mg tablet 20 mg PO QDAY #30 tabs 10/12 metoclopramide HCl 10 mg tablet 10 mg PO Q6H PRN nause a and 11/02/24 (Reglan) vomiting #20 tabs pantoprazole 40 mg tablet,delayed 40 mg PO QDAY #30 ta bs 11/02/24 release (Protonix) Allergies Allergy/AdvReac Type Severity Reaction Status Date / Time No Known Allergies Allergy Verified 11/02/24 07:53 Review of Systems Review of Systems Narrative Review of Systems: Review of system reviewed and within normal limits except mentioned in HPI ED Exam Narrative Physical exam: VITAL SIGNS: Reviewed. GENERAL APPEARANCE: Alert and interactive, follows commands, no acute distress, HEAD AND FACE: Non-traumatic. ENT: PERRL, pink conjunctivitis, eyelid no trauma, Mucous membrane dry NECK: Supple, nontender, no nuchal rigidity. CHEST: No tenderness, no crepitus, no paradoxical movement, no retractions. LUNGS: Clear, well ventilated, symmetric, no rales, no wheezing, no ronchi, no stridor, good breath sounds bilaterally. HEART: Regular rate, regular rhythm, no murmur, no gallops. ABDOMEN: Soft, positive bowel sounds, nondistended, no guarding, diffuse tenderness no rebound, no masses, RECTAL: Deferred. GENITAL: Deferred. NEUROLOGICAL: Gross motor function intact sensory function intact, Appropriate for age. MUSCULOSKELETAL: low back nontender, full range of motion. EXTREMITIES: Nontender, full range of motion. SKIN: Color pink, dry, no rash, no lacerations, no abrasions, no contusions. LYMPHATICS: Deferred. Course Quality Measures none Orders Category Date Time Status CT abdomen pelvis wo con Stat Exams 11/02/24 12:49 Completed CBC Stat Lab 11/02/24 08:49 Completed Comprehensive Metabolic Panel Stat Lab 11/02/24 08:49 Completed Drug Screen,Urine Stat Lab 11/02/24 08:18 Ordered Lipase Stat Lab 11/02/24 08:49 Completed Urinalysis, C/S if Indicated Stat Lab 11/02/24 08:18 Ordered Famotidine Inj [Pepcid Inj] Med 11/02/24 12:49 Discontinued 20 mg IVP X1 ONE Metoclopramide Inj [Reglan Inj] Med 11/02/24 12:49 Discontinued 10 mg IVP X1 ONE Ondansetron Odt [Zofran Odt] Med 11/02/24 08:18 Discontinued 4 mg PO X1 ONE Ringers Lactated 1000 ml [Lactated Ringers] 1,000 ml Med 11/02/24 12:49 Discontinued IV 999 mls/hr hydrALAZINE INJ [Apresoline Inj] Med 11/02/24 17:38 Discontinued 20 mg IVP X1 ONE Vital Signs Vital signs: Vital Signs Temperature 98.6 F 11/02/24 08:11 Pulse Rate 100 11/02/24 08:11 Respiratory Rate 18 11/02/24 08:11 Blood Pressure 172/87 H 11/02/24 08:11 Pulse Oximetry (%) 97 11/02/24 08:11 Oxygen Delivery Method Room Air 11/02/24 08:11 Nausea/Vomiting/Diarrhea MDM Narrative MDM Narrative:: 49-year-old male that comes in with complaints of nausea, vomiting and abdominal pain for the past 3 days. Patient states he also has a hiccups. Patient is a chronic dialysis patient last dialysis was done yesterday. Patient has a history of high blood pressure diabetes and hyperlipidemia. Patient denies any new medications any drug use or alcohol use. Patient denies any fever. Denies any other complaints. EKG shows sinus rhythm, ventricular rate of 86 bpm, no ST segment elevation or depression. Laboratory workup came back with slight leukocytosis of 14.9. CMP came back with elevated creatinine of 6.0, BUN of 26, potassium of 4.8. Patient received IV fluids, Pepcid, Reglan, Zofran, with significant provide symptoms. Patient data External records reviewed:: None Clinical information provided by:: patient and none Social determinants that could affect healthcare access:: none Patient has the following chronic illnesses:: ESRD, hypertension, How is presenting disease/condition affected by chronic disease/condition?: exacerbated by Evaluation data The following diagnostics were reviewed and interpreted by me:: lab results, radiology exam(s) and EKG tracing(s) Lab and/or radiology exams considered but not ordered:: None Interpretation Summary: EKG showed sinus rhythm, ventricular rate of 86 bpm, no ST segment elevation or depression. Medications / Prescriptions Medications / Prescriptions considered but not ordered:: None Medication administrations:: Medication Administration History Discontinued Medications Famotidine (Famotidine Inj 10 Mg/Ml Vial 2 Ml) 20 mg IVP X1 ONE Stop: 11/02/24 12:50 Last Admin: 11/02/24 15:58 Dose: 20 mg Documented By: ALONDRA Hydralazine HCl (Hydralazine Inj 20 Mg/Ml Vial) 20 mg IVP X1 ONE Stop: 11/02/24 17:39 Last Admin: 11/02/24 18:02 Dose: 20 mg Documented By: ALONDRA Lactated Ringer's (Lactated Ringers) 1,000 mls @ 999 mls/hr IV .Q1H1M ONE Stop: 11/02/24 13:49 Last Infusion: 11/02/24 17:30 Dose: Infused Documented By: Admin: 11/02/24 16:01 Dose: 999 mls/hr Documented By: ALONDRA Metoclopramide HCl (Metoclopramide Inj 5 Mg/Ml Vial 2 Ml) 10 mg IVP X1 ONE; Protocol Stop: 11/02/24 12:50 Last Admin: 11/02/24 15:58 Dose: 10 mg Documented By: ALONDRA Ondansetron HCl (Ondansetron Odt 4 Mg Tabrap) 4 mg PO X1 ONE; Protocol Stop: 11/02/24 08:19 Last Admin: 11/02/24 08:30 Dose: 4 mg Documented By: ER Pepcid, hydralazine, IV fluids, Reglan and Zofran Consultations Consultation(s) initiated? (list below): No Diagnosis Nausea Differential Diagnosis: food poisoning, gastroenteritis and dehydration Most likely diagnosis given after review of the tests above:: Nausea and vomiting Admission Indicated Admission indicated?: not indicated Explain why admission is indicated or not indicated:: None Admission Request Was there a request for admission?: No Disposition Plan Disposition Plan: Discharge Discharge Attestation Discharge Attestation: The patient and all family members were given an opportunity to ask questions and understood the discharge instructions. Discharge instructions specifically effects, indications for sooner follow up or return to the emergency department, and the expected course of current diagnosis. Patient condition: Stable Discharge Plan Plan Patient Disposition: HOME (Self Care) Discharge Disposition comment: Stable Prescriptions/Referrals Prescriptions/Med Rec: New pantoprazole [Protonix] 40 mg tablet,delayed release (DR/EC) 40 mg PO QDAY Qty: 30 0RF metoclopramide HCl [Reglan] 10 mg tablet 10 mg PO Q6H PRN (Reason: nausea and vomiting) Qty: 20 0RF No Action carvedilol 6.25 mg tablet 6.25 mg PO BIDWM Qty: 60 0RF nifedipine 30 mg Tablet Extended Release 24hr 60 mg PO QDAY Qty: 30 0RF valsartan 80 mg Tablet 160 mg PO BID Qty: 60 0RF Nephro-Kandy 0.8 mg Tablet 1 tab PO QDAY Qty: 30 0RF simvastatin 20 mg tablet 20 mg PO QDAY Qty: 30 0RF famotidine 20 mg tablet 20 mg PO QDAY Qty: 30 0RF Referrals: Rizwan Nash MD [Primary Care Provider] - In 1 week Problem List Clinical Impression: Dehydration, Nausea & vomiting Patient/Caregiver Discharge Instructions Discharge Activity: activity as tolerated Education Materials: ED Diet for Vomiting or ... Additional Instructions: Thank you for the opportunity for serving you today. You are stable for discharged . You are advised to: Follow-up with your PCP in 1 to 2 days Return to ED for worsening of symptoms Print Language: Bengali Stand Alone Forms: Lori Award Info., Patient Portal Info Letter PA/WOOD Supervising Physician PA/WOOD Supervising Physician: MD Lilibeth
[2024-11-02 15:09] VITALS: BP 167/107; PULSE 95; RESP 17; TEMP 37.2; O2SAT 99
--- NOTE | 2024-11-02 15:14 | PC.NURSE ---
Patient from [facility] and taken to room 11 with c/o abd. pain n/vomiting since 4 am. Patient has h/o RF and is on dialysis. Last dialysis was yesterday. Patient gets dialysis on mondays, wednesdays and Fridays. Patient rates pain at 7/10 at this time, call light within reach, spouse at bedside, new orders received.
[2024-11-02] MEDS: METOCLOPRAMIDE INJ 5 MG/ML VIAL 2 ML 10 MG IVP (15:58)
[2024-11-02] MEDS: FAMOTIDINE INJ 10 MG/ML VIAL 2 ML 20 MG IVP (15:58)
[2024-11-02] MEDS: RINGERS LACTATED 1000 ML 1,000 ML 999 ML IV (16:01)
[2024-11-02 17:39] VITALS: BP 183/99; PULSE 97; RESP 16; O2SAT 97
--- NOTE | 2024-11-02 17:39 | PC.NURSE ---
Patient lying in guney queitly sleeping, no distress noted, arouses to voice. Patient denies n/vomiting, denies abdominal pain. Patient states he feels better, bp 183/99, Abrea REFERRAL MANAGER made aware, new orders received for hydralazine.
[2024-11-02 18:02] VITALS: BP 169/100; PULSE 96
[2024-11-02] MEDS: hydrALAZINE INJ 20 MG/ML VIAL IVP (18:02)
[2024-11-02 20:34] VITALS: BP 139/85; PULSE 102; RESP 18; TEMP 36.7; O2SAT 96
== END 2024-11-02 20:35 | disposition home or self-care (01) ==
PROVIDERS: Nurse Practitioner Family; Emergency Provider Emergency Medicine; PCP Family Medicine
DX: E86.0 Dehydration (principal); R11.2 Nausea with vomiting, unspecified; K74.60 Unspecified cirrhosis of liver; R18.8 Other ascites; Z99.2 Dependence on renal dialysis; E11.9 Type 2 diabetes mellitus without complications; E78.5 Hyperlipidemia, unspecified
CPT/HCPCS: 36415; 74176; 80053; 81001; 83690; 85025; 96361; 96374; 96375; 99284; J0360; J2765; J3490; J7120; Q0162

== ENCOUNTER 2025-02-13 09:55 | Day surgery (SDC) | payer MEDICAID, SELFPAY ==
[2025-02-12 08:18] VITALS: BMI 24.8
[2025-02-12 10:06] LABS: Basophils # (Auto) 0.1 Thou/mm3 (0.0-0.2); Basophils % (Auto) 1 % (0-2.5); Eosinophils # (Auto) 0.4 Thou/mm3 (0.0-0.5); Eosinophils % (Auto) 5 % (0-10); Hematocrit 30.8 % (41.0-53.0); Hemoglobin 10.7 g/dL (13.5-16.0); Immature Granulocytes Auto 0.03 Thou/mm3 (0.00-0.00); Lymphocytes # (Auto) 1.3 Thou/mm3 (1.0-4.8); Lymphocytes % (Auto) 16 % (10-50); Mean Corpuscular HGB Conc 34.7 g/dl (31.0-37.0); Mean Corpuscular Hemoglobin 29.3 pg (25.0-35.0); Mean Corpuscular Volume 84 fL (80-100); Monocytes # (Auto) 0.6 Thou/mm3 (0.0-0.8); Monocytes % (Auto) 8 % (0-12); Neutrophils # (Auto) 5.6 Thou/mm3 (1.8-7.7); Neutrophils % (Auto) 70 % (37-80); Nucleated Red Blood Cell # 0.00 Thou/mm3 (0.00-0.00); Nucleated Red Blood Cell % 0 /100 WBC (0); Platelet Count 315 Thou/mm3 (140-440); RDW Standard Deviation 44.0 fL (35.1-43.9); Red Blood Count 3.65 Miln/mm3 (4.50-5.90); White Blood Count 8.1 Thou/mm3 (3.8-10.6)
[2025-02-12 10:19] LABS: INR 1.0 (0.9-1.3); Partial Thromboplastin Time 29.1 Seconds (22.0-36.0); Prothrombin Time 10.9 Seconds (9.0-12.2)
[2025-02-12 10:20] LABS: Alanine Aminotransferase 8 U/L (10-49); Albumin, Serum 4.4 gm/dL (3.5-5.0); Albumin/Globulin Ratio 1.4 (1.2-2.2); Alkaline Phosphatase 119 U/L (46-116); Anion Gap 13 (7-16); Aspartate Amino Transferase < 10 U/L (0-34); BUN/Creatinine Ratio 5 Ratio (12-20); Bilirubin,Total 0.4 mg/dL (0.3-1.2); Blood Urea Nitrogen 42 mg/dL (9-23); Calcium 9.5 mg/dL (8.3-10.6); Calcium (Corrected) 9.5 mg/dL (8.5-10.1); Carbon Dioxide 29.2 mMol/L (20.0-31.0); Chloride 94 mMol/L (98-107); Creatinine (Component) 8.0 mg/dL (0.6-1.3); Estimated Creatinine Clearance 8.5 mL/min (>60); Globulin 3.1 gm/dL (2.3-3.5); Glucose 128 mg/dL (74-106); Osmolality,Calculated 284 (275-295); Potassium 4.6 mMol/L (3.4-5.1); Sodium 136 mMol/L (136-145); Total Protein 7.5 gm/dL (5.7-8.2); eGFR 8 See Note
[2025-02-13] VITALS (14 sets, daily range): BP systolic 187–225; BP diastolic 99–112; PULSE 77–84; RESP 12–19; TEMP 36.2–36.8; O2SAT 94–100; BMI 24.7
[2025-02-13 10:49] LABS: Potassium 4.4 mMol/L (3.4-5.1)
--- NOTE | 2025-02-13 14:08 | PD.SUROPNT ---
Date of Procedure 02/13/25 Pre Op Diagnosis End-stage renal disease Post Op Diagnosis Same as pre-op diagnosis Procedure Creation of arteriovenous fistula between the brachial artery and cephalic vein of the right upper extremity Findings Excellent flow in the fistula Procedure Description With the patient supine under adequate general anesthesia the right upper extremity was sterilely prepped and draped. A timeout was performed. Venous tourniquet was placed on the right upper arm and ultrasound was used to confirm patency and suitability of the cephalic vein for AV fistula creation. The brachial artery was widely patent although calcified but compressible. A slight oblique incision was then made on the volar aspect of the upper forearm and the subcutaneous tissues were dissected electrocautery. The cephalic vein was dissected free from surrounding tissues, divided distally and mobilized. The dissection was carried through the bicipital aponeurosis to expose the brachial artery which was freed from surrounding tissues. The artery was crossclamped proximally and distally and stay sutures were placed. The vein was then cut to size and sewn to the artery with a combination of interrupted and running 7-0 Prolene suture. Before completion the artery was forward flushed and back flushed as was the vein and the anastomotic area was copiously irrigated with heparin saline. The anastomosis was completed and flow was established. There was a strong palpable thrill in the fistula. The wound was then closed in layers with 3-0 Vicryl the subcutaneous tissues and a 4 Monocryl subcuticular skin closure. A Dermabond dressing was applied. Patient woke well from anesthesia was moved to recovery in stable condition Anesthesia other (Laryngeal mask anesthesia) Implants None Pathology / specimen None Estimated Blood Loss 25 Condition Stable Disposition PACU Surgeon Isacc Hernandez MD Surgical Staff Operation Date: 02/13/25 13:15 Case Staff Anesthesiologist: Mark Rollins RN First Assistant: Candace Mead
--- NOTE | 2025-02-13 14:22 | SUR.PHASEI ---
1422: Pt. AAOx4, pt. hypertensive, breathing unlabored, complaint of pain. MD Rollins aware of BP, he stated to give pt. pain medicine and then reassess, he also stated that pt. BP baseline was already elevated and he is due for dialysis tomorrow. Pt. stated he did not take his blood pressure this morning as he was directed. Dressing to right arm CDI, no active bleed noted, bruit and thrill present, bilateral radial pulses strong and regular, cap refill to bilateral hands less than 3 seconds. Report recieved from Christine TUCKER and MD Rollins.
[2025-02-13] MEDS: HYDROmorphone INJ 2 MG/ML VIAL 0.4 MG IVP ×2 (14:29→14:45)
[2025-02-13] MEDS: LABETALOL INJ 5 MG/ML VIAL 20 ML 10 MG IVP (14:50)
[2025-02-13] MEDS: fentaNYL CIT INJ 50 mCg/ML AMP 2ML 25 MCG IVP (15:14)
[2025-02-13] MEDS: ONDANSETRON INJ 2 MG/ML INJ 2 ML 4 MG IVP (16:24)
--- NOTE | 2025-02-13 16:55 | SUR.PHASEII ---
1655: Pt. AAOx4, pt. hypertensive, MD Rollins made aware and stated that it won't get much better and that the pt. needs to go home take his BP medication and have his dialysis tomorrow as scheduled. Labetalol was administered to pt. during his stay in recovery and it did not help his BP too much, pt. remained hypertensive, remaining vitals stable. Pt. stated nausea was better after zofran was administered. Dressing to right lower arm CDI, no active bleed noted, bruit and thrill present. Pt. tolerated sips of water well, pt. ambulated to wheelchair with minimal assist. Gave discharge instructions to the pt. and his ride using a agricultural extension officer, both pt. and his ride verbalized understanding and had no further questions. Pt. was educated on importance of taking his blood pressure medication at home as well as how to check thrill daily for AV fistula. Pt. left with all personal belongings.
== END 2025-02-13 16:55 | disposition home or self-care (01) ==
PROVIDERS: Anesthesiology; PCP Family Medicine; Referring Provider Surgery Vascular Surgery; Visit Provider Surgery Vascular Surgery
PROC: (CPT 36825; principal; 2025-02-13 13:00)
DX: N18.6 End stage renal disease (principal)
CPT/HCPCS: 36821; 36415; 80053; 84132; 85025; 85610; 85730; A4216; A4649; J0131; J0690; J1100; J1171; J1644; J2250; J2405; J2440; J2704; J3010; J3490; J1920

== ENCOUNTER 2025-02-21 22:16 | Emergency (ER) | payer MEDICAID, SELFPAY ==
[2025-02-21 22:19] VITALS: BMI 24.5
--- NOTE | 2025-02-21 22:28 | XR_ITS ---
Examination: CT abdomen and pelvis without contrast. Coronal 3-D reconstructions. Sagittal 2-D reconstructions. Date and time of exam: February 21, 2025, 10:30 p.m., comparison November 02, 2024 INDICATION: Constipation abdominal pain 2 days CTDI: vol (mGy): 5.70 DLP: (mGycm): 320 Technique: Axial images of the abdomen have been obtained, 3 mm slice thickness Intravenous contrast material has not been administered. Low dose protocols were performed. One or more of the following dose reduction techniques were used; automated exposure control, adjustment of the mA and/or KV according to patient size, use of iterative reconstruction technique. Findings: Liver is irregular in contour, no focal liver lesions No gallstones No pancreatic or adrenal mass No renal or ureteral calculi, no hydronephrosis Mild ascites Normal appendix Aorta normal size Large amounts of stool throughout the colon especially rectum and rectosigmoid Marked thickening of the urinary bladder wall Mild prostatomegaly Contracted urinary bladder Severe osteopenia IMPRESSION: Cirrhosis Mild ascites Normal appendix Large amounts of stool throughout the colon especially rectum and rectosigmoid with rectal wall thickening Differential for the rectal wall thickening would include proctitis, early rectal tumor not excluded, recommend direct inspection
--- NOTE | 2025-02-21 22:30 | EDNOTE_ITS ---
ED Abdominal Pain RME/HPI General Chief Complaint: Abdominal Pain Stated complaint: ABD PAIN, NO BM IN 2 DAYS Time seen by provider: 02/21/25 22:28 Arrival date/time: 02/21/25 22:16 RME / HPI RME / HPI narrative: See [facility] for Dr. Gatica's HPI Documentation. Related Data Previous Rx's ?Medication ?Instructions ?Recorded carvedilol 6.25 mg tablet 6.25 mg PO BIDWM #60 tabs simvastatin 20 mg tablet 20 mg PO QDAY #30 tabs 10/11 vitamin B complex-vitamin C-folic 1 tab PO QDAY #30 ta bs 10/11/24 acid 0.8 mg tablet (Nephro-Kandy) metoclopramide HCl 10 mg tablet 10 mg PO Q6H PRN nause a and 11/02/24 (Reglan) vomiting #20 tabs pantoprazole 40 mg tablet,delayed 40 mg PO QDAY #30 ta bs 11/02/24 release (Protonix) magnesium hydroxide 2,400 mg/10 mL 30 ml PO QDAY PRN c onstipation #60 02/22/25 oral suspension (Milk Of Magnesia mL Concentrated) sennosides 8.6 mg-docusate sodium 4 tab-cap (4 x 8.6-5 0 mg) PO QDAY 02/22/25 50 mg tablet (Senokot-S) PRN constipation #20 tabs Allergies Allergy/AdvReac Type Severity Reaction Status Date / Time No Known Allergies Allergy Verified 02/21/25 22:19 Review of Systems Review of Systems Systems Reviewed: All systems reviewed, normal except as documented Past Medical History Past Medical History CARDIAC: Positive Hypercholesterolemia and Hypertension GENITOURINARY: Positive Renal Disease and Dialysis (MWF) ENDOCRINE: Positive Diabetes Mellitus Type 2 (not on medications) HEMATOLOGIC: Positive Anemia ED Exam Narrative Physical exam: See [facility] for Dr. Gatica's Physical Exam Documentation. Course Quality Measures none Orders Category Date Time Status CT abdomen pelvis wo con Stat Exams 02/21/25 22:28 Completed Amylase Stat Lab 02/21/25 23:27 Completed Bilirubin,Direct Stat Lab 02/21/25 23:27 Completed CBC Stat Lab 02/21/25 23:27 Completed CMP [Comprehensive Metabolic Panel] Stat Lab 02/21/25 23:27 Completed Lipase Stat Lab 02/21/25 23:27 Completed Magnesium Stat Lab 02/21/25 23:27 Completed Senna/Docusate Sod [Senokot S] Med 02/22/25 01:01 Discontinued 4 tab PO X1 ONE cloNIDine HCL [Catapres] Med 02/21/25 22:35 Discontinued 0.3 mg PO X1 ONE Vital Signs Vital signs: Vital Signs Temperature 98.1 F 02/21/25 22:32 Pulse Rate 79 02/21/25 22:32 Respiratory Rate 20 02/21/25 22:32 Blood Pressure 198/100 H 02/21/25 22:32 Pulse Oximetry (%) 97 02/21/25 22:32 Oxygen Delivery Method Room Air 02/21/25 22:32 Abdominal Pain MDM MDM Narrative MDM Narrative:: This section includes all my notes and documentations, including HPI, PE, and ED course. Arnav Gatica MD HPI: 49 y/o male with Hx of HTN and ESRD on dialysis presents with abdominal pain and no bowel movement for 3 days. No fever or chills. No nausea or vomiting. No other complaints. ROS: All negative except as documented in HPI. Physical Exam: General: Alert and oriented. No acute distress when remaining still. High BP noted. Eyes: Conjunctivae and lids clear. ENT: No nasal congestion. Neck: Supple. Heart: RRR. Lungs: No respiratory distress. Good air movement. No rhonchi, wheezing, rales. Abdomen: Soft and nontender. Normal bowel sounds. No distension. No rebound or guarding. Back: No CVA tenderness. Skin: Warm and dry. Neuro: Alert and oriented X 3. I reviewed all diagnostic test results: My review of the Abdomen/Pelvis CT report is constipation. Blood tests and urine tests unremarkable. At this point, diagnoses include: Constipation Hypertension Treatment here included: Catapres 0.3 mg orally Recommended outpatient care. Based on my best medical judgment, made decision no further evaluation or treatment indicated at this time. Patient understands and agrees to the discharge instructions customized and printed, see below. Discharge instructions from Dr. Gatica printed for you: ?After extensive evaluation, you have severe constipation. ?Take milk of magnesia and Senokot S (not plain Senokot, OTC so prescription not needed), four pills, at bedtime as prescribed.? May take a few days but this will help clear out your bowels. ?To help current constipation and prevent future constipation, increase oral fluid because dehydration cause severe constipation.? Maintain clear urine.? If dark or yellow, increase oral fluid. ?And every day, increase fresh fruits and fresh vegetables and physical exercise. --And wear a glove and apply K-Y jelly on a finger. And insert the finger into your rectum and evacuate out the feces as much as possible. This will help your constipation, this is very important. You may need help from family or friend. ?See a private doctor on 02/24/2025. Ask to review all test results and official radiology reports, to make sure you receive all necessary follow-ups and monitoring. To make sure there is no serious underlying abdominal condition, ask to help you get more care not available here in the ER.? Such as EGD or scoping of your stomach, colonoscopy or scoping the colon, and a referral to see a trust officer. Ask for help until you are completely better. ?Seek immediate medical care with worsening or with any concerns. Arnav Gatica MD Patient data External records reviewed:: [facility] previous records (Reviewed prior ED records from 11/02/24. Patient was seen for Dehydration.) Clinical information provided by:: patient Social determinants that could affect healthcare access:: none Patient has the following chronic illnesses:: Hypercholesterolemia, Hypertension, Renal Disease and Dialysis (MWF), Diabetes Mellitus Type 2, Anemia How is presenting disease/condition affected by chronic disease/condition?: exacerbated by Evaluation data The following diagnostics were reviewed and interpreted by me:: lab results and radiology exam(s) Lab and/or radiology exams considered but not ordered:: None Interpretation Summary: I reviewed all diagnostic test results: My review of the Abdomen/Pelvis CT report is constipation. Blood tests and urine tests unremarkable. Medications / Prescriptions Medications or Prescriptions considered but not ordered:: None Medication administrations:: Medication Administration History Discontinued Medications Clonidine (Clonidine Hcl 0.1 Mg Tablet) 0.3 mg PO X1 ONE Stop: 02/21/25 22:36 Last Admin: 02/21/25 22:55 Dose: 0.3 mg Documented By: TA Sennosides (Senna/Docusate Sod 1 Tab Tablet) 4 tab PO X1 ONE; Protocol Stop: 02/22/25 01:02 Last Admin: 02/22/25 01:17 Dose: 4 tab Documented By: RACHEL Catapres 0.3 mg orally Senokot-S X 4 Consultations Consultation(s) initiated? (list below): No Diagnosis Differential diagnosis abdominal pain: abdominal pain, acute appendicitis, calculus of kidney, constipation, diverticulitis, gastroenteritis, pancreatitis and small bowel obstruction Most likely diagnosis given after review of the tests above:: Constipation Admission Indicated Admission indicated?: not indicated Explain why admission is indicated or not indicated:: With no condition needing emergent intervention, there was no indication for admission. Admission Request Was there a request for admission?: No Disposition Plan Disposition Plan: Discharge Discharge Attestation Discharge Attestation: The patient and all family members were given an opportunity to ask questions and understood the discharge instructions. Discharge instructions specifically effects, indications for sooner follow up or return to the emergency department, and the expected course of current diagnosis. Patient condition: Stable Discharge Plan Plan Patient Disposition: HOME (Self Care) Prescriptions/Referrals Prescriptions/Med Rec: New sennosides-docusate sodium [Senokot-S] 8.6-50 mg tablet 4 tab-cap PO QDAY PRN (Reason: constipation) Qty: 20 0RF magnesium hydroxide [Milk Of Magnesia Concentrated] 2,400 mg/10 mL suspension 30 ml PO QDAY PRN (Reason: constipation) Qty: 60 0RF No Action carvedilol 6.25 mg tablet 6.25 mg PO BIDWM Qty: 60 0RF Nephro-Kandy 0.8 mg Tablet 1 tab PO QDAY Qty: 30 0RF simvastatin 20 mg tablet 20 mg PO QDAY Qty: 30 0RF pantoprazole [Protonix] 40 mg tablet,delayed release (DR/EC) 40 mg PO QDAY Qty: 30 0RF metoclopramide HCl [Reglan] 10 mg tablet 10 mg PO Q6H PRN (Reason: nausea and vomiting) Qty: 20 0RF Referrals: Rizwan Nash MD [Primary Care Provider, Family Practice] - In 1 week Problem List Clinical Impression: Constipation Patient/Caregiver Discharge Instructions Discharge Activity: activity as tolerated Education Materials: ED Constipation (Adult) Additional Instructions: Discharge instructions from Dr. Gatica printed for you: ?After extensive evaluation, you have severe constipation. ?Take milk of magnesia and Senokot S (not plain Senokot, OTC so prescription not needed), four pills, at bedtime as prescribed.? May take a few days but this will help clear out your bowels. ?To help current constipation and prevent future constipation, increase oral fluid because dehydration cause severe constipation.? Maintain clear urine.? If dark or yellow, increase oral fluid. ?And every day, increase fresh fruits and fresh vegetables and physical exercise. --And wear a glove and apply K-Y jelly on a finger. And insert the finger into your rectum and evacuate out the feces as much as possible. This will help your constipation, this is very important. You may need help from family or friend. ?See a private doctor on 02/24/2025. Ask to review all test results and official radiology reports, to make sure you receive all necessary follow-ups and monitoring. To make sure there is no serious underlying abdominal condition, ask to help you get more care not available here in the ER.? Such as EGD or scoping of your stomach, colonoscopy or scoping the colon, and a referral to see a trust officer. Ask for help until you are completely better. ?Seek immediate medical care with worsening or with any concerns. Instrucciones de vinayak del Dr. Gatica impresas para usted: ?Despu?s de wayne evaluaci?n exhaustiva, presenta estre?imiento socorro. ?[place] leche de magnesia y Senokot S (no Senokot simple, de venta rosalia, por lo que no necesita receta), cuatro pastillas, antes de acostarse, seg?n lo prescrito. Puede tardar unos d?as, alonzo esto le ayudar? a evacuar. ?Para aliviar el estre?imiento actual y prevenirlo en el futuro, aumente la ingesta de l?quidos, ya que la deshidrataci?n causa estre?imiento socorro. Mantenga la orina pao. Si es oscura o amarilla, aumente la ingesta de l?q uidos. ?Y aumente el consumo diario de frutas y verduras frescas, y yung ejercicio f?sico. ?Use un guante y aplique la jalea K-Y en un dedo. Introduzca el dedo en el recto y evacue las heces tanto se sea posible. [place] le ayudar? con el estre?imiento; es muy importante. Es posible que necesite ayuda de familiares o amigos. ?Consulte con un m?dico privado el 24/02/2025. Solicite la revisi?n de todos los resultados de las pruebas y los informes radiol?gicos oficiales para asegurarse de recibir todos los seguimientos y la monitorizaci?n necesarios. Para asegurarse de que no haya wayne afecci?n abdominal subyacente grave, solicite ayuda para obtener m?s atenci?n que no est? disponible en urgencias, se wayne endoscopia estomacal (EGD), wayne colonoscopia o wayne colonoscopia, y wayne derivaci?n a un gastroenter?logo. Solicite ayuda hasta que se recupere por completo. ? Busque atenci?n m?dica inmediata si la condici?n empeora o tiene alguna inquietud. Print Language: Vietnamese Stand Alone Forms: Lori Award Info., Patient Portal Info Letter
[2025-02-21 22:32] VITALS: BP 195/112; BP 198/100; PULSE 79; RESP 20; TEMP 36.7; O2SAT 97
[2025-02-21 22:55] VITALS: BP 198/100; PULSE 79
[2025-02-22 00:01] LABS: Basophils # (Auto) 0.1 Thou/mm3 (0.0-0.2); Basophils % (Auto) 1 % (0-2.5); Eosinophils # (Auto) 0.5 Thou/mm3 (0.0-0.5); Eosinophils % (Auto) 8 % (0-10); Hematocrit 31.1 % (41.0-53.0); Hemoglobin 10.4 g/dL (13.5-16.0); Immature Granulocytes Auto 0.02 Thou/mm3 (0.00-0.00); Lymphocytes # (Auto) 1.3 Thou/mm3 (1.0-4.8); Lymphocytes % (Auto) 19 % (10-50); Mean Corpuscular HGB Conc 33.4 g/dl (31.0-37.0); Mean Corpuscular Hemoglobin 29.1 pg (25.0-35.0); Mean Corpuscular Volume 87 fL (80-100); Monocytes # (Auto) 0.7 Thou/mm3 (0.0-0.8); Monocytes % (Auto) 11 % (0-12); Neutrophils # (Auto) 4.1 Thou/mm3 (1.8-7.7); Neutrophils % (Auto) 61 % (37-80); Nucleated Red Blood Cell # 0.00 Thou/mm3 (0.00-0.00); Nucleated Red Blood Cell % 0 /100 WBC (0); Platelet Count 295 Thou/mm3 (140-440); RDW Standard Deviation 45.9 fL (35.1-43.9); Red Blood Count 3.58 Miln/mm3 (4.50-5.90); White Blood Count 6.7 Thou/mm3 (3.8-10.6)
[2025-02-22 00:12] LABS: Alanine Aminotransferase < 7 U/L (10-49); Albumin, Serum 4.2 gm/dL (3.5-5.0); Albumin/Globulin Ratio 1.6 (1.2-2.2); Alkaline Phosphatase 125 U/L (46-116); Amylase 116 U/L (30-118); Anion Gap 10 (7-16); Aspartate Amino Transferase 23 U/L (0-34); BUN/Creatinine Ratio 4 Ratio (12-20); Bilirubin,Direct 0.1 mg/dL (0.0-0.3); Bilirubin,Total 0.5 mg/dL (0.3-1.2); Blood Urea Nitrogen 15 mg/dL (9-23); Calcium 8.7 mg/dL (8.3-10.6); Calcium (Corrected) 8.7 mg/dL (8.5-10.1); Carbon Dioxide 29.9 mMol/L (20.0-31.0); Chloride 98 mMol/L (98-107); Creatinine (Component) 3.9 mg/dL (0.6-1.3); Estimated Creatinine Clearance 17.5 mL/min (>60); Globulin 2.7 gm/dL (2.3-3.5); Glucose 111 mg/dL (74-106); Lipase 48 U/L (12-53); Magnesium 2.4 mg/dL (1.6-2.6); Osmolality,Calculated 277 (275-295); Potassium 4.6 mMol/L (3.4-5.1); Sodium 138 mMol/L (136-145); Total Protein 6.9 gm/dL (5.7-8.2); eGFR 18 See Note
[2025-02-22 00:38] VITALS: BP 110/69; PULSE 63; RESP 18; TEMP 36.9; O2SAT 100
[2025-02-22] MEDS: SENNA/DOCUSATE SOD 1 TAB TABLET 4 TAB PO (01:17)
== END 2025-02-22 01:24 | disposition home or self-care (01) ==
PROVIDERS: Emergency Provider Emergency Medicine; PCP Family Medicine
DX: K59.00 Constipation, unspecified (principal); I12.0 Hypertensive chronic kidney disease with stage 5 chronic kidney disease or end stage renal disease; N18.6 End stage renal disease; Z99.2 Dependence on renal dialysis; I10 Essential (primary) hypertension
CPT/HCPCS: 36415; 74176; 80053; 82150; 82248; 83690; 83735; 85025; 99283; A9270

== ENCOUNTER 2025-04-17 11:39 | Emergency (ER) | payer MEDICAID, SELFPAY ==
[2025-04-17 11:50] VITALS: BP 219/119; PULSE 80; RESP 16; TEMP 36.7; O2SAT 99
--- NOTE | 2025-04-17 11:56 | EKG_ITS ---
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
--- NOTE | 2025-04-17 12:14 | PD.EDADULT ---
ED General RME/HPI General Chief complaint: General Adult/Misc Complain Stated complaint: HIGH BLOOD PRESSURE Time Seen by Provider: 04/17/25 11:56 Arrival date/time: 04/17/25 11:39 49-year-old male patient with significant history of hypertension, diabetes mellitus, on hemodialysis, scheduled MWF, today patient went to the OR for outpatient revision of the right arm AV fistula. While in the OR patient blood pressure was elevated and the anesthesia is refusing to proceed with the procedure due to the elevated blood pressure. Currently patient is denying any headache, no chest pain neck pain. Patient last hemodialysis was yesterday. Related Data Home Medications ?Medication ?Instructions ?Recorded ?Confirmed insulin glargine 100 unit/mL (3 15 unit subcut QDAY 04/16/25 04/17/25 mL) subcutaneous pen (Basaglar KwikPen U-100 Insulin) Previous Rx's ?Medication ?Instructions ?Recorded carvedilol 6.25 mg tablet 6.25 mg PO BIDWM #60 tabs 10/11/24 vitamin B complex-vitamin C-folic 1 tab PO QDAY #30 tabs 10/11/24 acid 0.8 mg tablet (Nephro-Kandy) Allergies Allergy/AdvReac Type Severity Reaction Status Date / Time No Known Allergies Allergy Verified 04/17/25 11:50 Review of Systems Review of Systems Narrative Review of Systems: Review of system reviewed and within normal limits except mentioned in HPI ED Exam Narrative Physical exam: VITAL SIGNS: Reviewed. GENERAL APPEARANCE: Alert and interactive, follows commands, no acute distress, HEAD AND FACE: Non-traumatic. ENT: PERRL, pink conjunctivitis, eyelid no trauma, Mucous membrane moist. NECK: Supple, nontender, no nuchal rigidity. CHEST:Right chest permacath, intact, no drainage noted, No tenderness, no crepitus, no paradoxical movement, no retractions. LUNGS: Clear, well ventilated, symmetric, no rales, no wheezing, no ronchi, no stridor, good breath sounds bilaterally. HEART: Regular rate, regular rhythm, no murmur, no gallops. ABDOMEN: Soft, positive bowel sounds, nondistended, no guarding, nontender, no rebound, no masses, RECTAL: Deferred. GENITAL: Deferred. NEUROLOGICAL: Gross motor function intact sensory function intact, Appropriate for age. MUSCULOSKELETAL: low back nontender, full range of motion. EXTREMITIES: Nontender, full range of motion. SKIN: Color pink, dry, no rash, no lacerations, no abrasions, no contusions. LYMPHATICS: Deferred. Course Quality Measures none Orders Category Date Time Status EKG (ED ONLY) *Do not use* NOW Care 04/17/25 11:57 Completed EKG (ED Only) Stat Exams 04/17/25 11:56 Draft CBC [CBC] Stat Lab 04/17/25 12:17 Completed CMP [Comprehensive Metabolic Panel] Stat Lab 04/17/25 12:17 Completed Troponin I Stat Lab 04/17/25 12:17 Completed Sod Polystyrene Sulfon Susp [Kayexalate Susp] Med 04/17/25 14:19 Once 30 gm PO X1 ONE hydrALAZINE HCL [Apresoline] Med 04/17/25 11:57 Discontinued 50 mg PO X1 ONE hydrALAZINE INJ [Apresoline Inj] Med 04/17/25 12:12 Discontinued 20 mg IVP X1 ONE Vital Signs Vital signs: Vital Signs Temperature 98.0 F 04/17/25 11:50 Pulse Rate 80 04/17/25 11:50 Respiratory Rate 16 04/17/25 11:50 Blood Pressure 219/119 H 04/17/25 11:50 Pulse Oximetry (%) 99 04/17/25 11:50 Oxygen Delivery Method Room Air 04/17/25 11:50 Discharge Plan Plan Patient Disposition: HOME (Self Care) Discharge Disposition comment: Stable Prescriptions/Referrals Prescriptions/Med Rec: No Action carvedilol 6.25 mg tablet 6.25 mg PO BIDWM Qty: 60 0RF Nephro-Kandy 0.8 mg Tablet 1 tab PO QDAY Qty: 30 0RF insulin glargine [Basaglar KwikPen U-100 Insulin] 100 unit/mL (3 mL) insulin pen 15 unit subcut QDAY Referrals: Rizwan Nash MD [Primary Care Provider, Family Practice] - In 1 week Problem List Clinical Impression: Hypertensive urgency, ESRD (end stage renal disease) on dialysis Patient/Caregiver Discharge Instructions Discharge Activity: activity as tolerated Education Materials: Hypertension and Kidney Disease Additional Instructions: Thank you for the opportunity for serving you today. You are stable for discharged . You are advised to: Follow-up with your PCP in 1 to 2 days Return to ED for worsening of symptoms Increase oral fluids Please call the office of Dr. Hernandez to reschedule your surgery. Print Language: Guinean Stand Alone Forms: Lori Award Info., Patient Portal Info Letter PA/WOOD Supervising Physician FLORESITA/WOOD Supervising Physician: MD michele MDM Narrative MDM hospital course (for use when minimal MDM required): 49-year-old male patient with significant history of hypertension, diabetes mellitus, on hemodialysis, scheduled MWF, today patient went to the OR for outpatient revision of the right arm AV fistula. While in the OR patient blood pressure was elevated and the anesthesia is refusing to proceed with the procedure due to the elevated blood pressure. Currently patient is denying any headache, no chest pain neck pain. Patient last hemodialysis was yesterday.\ EKG as interpreted by me showed sinus rhythm, ventricular rate of 81 bpm, no ST segment elevation or depression noted. Patient's workup is significant for creatinine of 6.5, BUN of 33, potassium 5.8. Patient's troponin was noted to be 0.108, patient did have chronic elevation of troponin. Currently is not having any chest pain. Patient was given hydralazine IV, and latest blood pressure was noted to be 144/83 prior to discharge Patient was given Kayexalate. I advised the patient to follow-up with Dr. Hernandez, to reschedule the AV fistula revision. He is stable for charged home is scheduled for hemodialysis tomorrow morning. Medication Administration(s) Medication Administration History Discontinued Medications Hydralazine HCl (Hydralazine Hcl 25 Mg Tablet) 50 mg PO X1 ONE Stop: 04/17/25 11:58 Last Admin: 04/17/25 13:13 Dose: Not Given Documented By: ED Non-Admin Reason: Cancelled by Provider Hydralazine HCl (Hydralazine Inj 20 Mg/Ml Vial) 20 mg IVP X1 ONE Stop: 04/17/25 12:13 Last Admin: 04/17/25 12:28 Dose: 20 mg Documented By: ED Diagnosis Differential Diagnosis ED Complaint MDM: Hypertension, hypertensive urgency, history of ESRD Diagnoses ruled out and/or further discussions: Hypertensive urgency, history of ESRD
[2025-04-17 12:28] VITALS: BP 221/119; PULSE 80
[2025-04-17] MEDS: hydrALAZINE INJ 20 MG/ML VIAL IVP (12:28)
[2025-04-17 12:34] LABS: Basophils # (Auto) 0.0 Thou/mm3 (0.0-0.2); Basophils % (Auto) 1 % (0-2.5); Eosinophils # (Auto) 0.5 Thou/mm3 (0.0-0.5); Eosinophils % (Auto) 9 % (0-10); Hematocrit 34.6 % (41.0-53.0); Hemoglobin 11.8 g/dL (13.5-16.0); Immature Granulocytes Auto 0.01 Thou/mm3 (0.00-0.00); Lymphocytes # (Auto) 1.4 Thou/mm3 (1.0-4.8); Lymphocytes % (Auto) 26 % (10-50); Mean Corpuscular HGB Conc 34.1 g/dl (31.0-37.0); Mean Corpuscular Hemoglobin 30.3 pg (25.0-35.0); Mean Corpuscular Volume 89 fL (80-100); Monocytes # (Auto) 0.5 Thou/mm3 (0.0-0.8); Monocytes % (Auto) 10 % (0-12); Neutrophils # (Auto) 3.1 Thou/mm3 (1.8-7.7); Neutrophils % (Auto) 55 % (37-80); Nucleated Red Blood Cell # 0.00 Thou/mm3 (0.00-0.00); Nucleated Red Blood Cell % 0 /100 WBC (0); Platelet Count 207 Thou/mm3 (140-440); RDW Standard Deviation 42.5 fL (35.1-43.9); Red Blood Count 3.90 Miln/mm3 (4.50-5.90); White Blood Count 5.6 Thou/mm3 (3.8-10.6)
--- NOTE | 2025-04-17 12:50 | PC.NURSE ---
Pt. states he wants food, Tucker CANAS states it's ok to feed pt., sandwich and juice given, pt. states thank you. Pt.'s sister is at bedside.
[2025-04-17 13:02] LABS: Alanine Aminotransferase 9 U/L (10-49); Albumin, Serum 4.4 gm/dL (3.5-5.0); Albumin/Globulin Ratio 1.5 (1.2-2.2); Alkaline Phosphatase 113 U/L (46-116); Anion Gap 10 (7-16); Aspartate Amino Transferase 10 U/L (0-34); BUN/Creatinine Ratio 5 Ratio (12-20); Bilirubin,Total 0.4 mg/dL (0.3-1.2); Blood Urea Nitrogen 33 mg/dL (9-23); Calcium 9.3 mg/dL (8.3-10.6); Calcium (Corrected) 9.3 mg/dL (8.5-10.1); Carbon Dioxide 30.3 mMol/L (20.0-31.0); Chloride 98 mMol/L (98-107); Creatinine (Component) 6.5 mg/dL (0.6-1.3); Globulin 2.9 gm/dL (2.3-3.5); Glucose 87 mg/dL (74-106); Osmolality,Calculated 281 (275-295); Potassium 5.8 mMol/L (3.4-5.1); Sodium 138 mMol/L (136-145); Total Protein 7.3 gm/dL (5.7-8.2); eGFR 10 See Note
[2025-04-17 13:05] VITALS: BP 144/83; PULSE 94; RESP 17; O2SAT 98
[2025-04-17 13:10] LABS: Troponin I 0.108 ng/mL (0.0-0.045)
[2025-04-17 14:56] VITALS: BP 131/81; PULSE 92; RESP 16; O2SAT 98
[2025-04-17] MEDS: SOD POLYSTYRENE SULFON SUSP 15 GM/60 ML BTL 30 GM PO (14:57)
== END 2025-04-17 15:04 | disposition home or self-care (01) ==
PROVIDERS: Nurse Practitioner Family; Emergency Provider Family Medicine; PCP Family Medicine
DX: I16.0 Hypertensive urgency (principal); I12.0 Hypertensive chronic kidney disease with stage 5 chronic kidney disease or end stage renal disease; E11.22 Type 2 diabetes mellitus with diabetic chronic kidney disease; N18.6 End stage renal disease; Z99.2 Dependence on renal dialysis
CPT/HCPCS: 36415; 80053; 84484; 85025; 93005; 96374; 99283; J0360; A9270

== ENCOUNTER → 2025-04-17 | Day surgery (SDC) | payer MEDICAID, SELFPAY ==
[2025-04-16 09:40] VITALS: BMI 25.6
[2025-04-16 11:13] LABS: Basophils # (Auto) 0.1 Thou/mm3 (0.0-0.2); Basophils % (Auto) 1 % (0-2.5); Eosinophils # (Auto) 0.6 Thou/mm3 (0.0-0.5); Eosinophils % (Auto) 10 % (0-10); Hematocrit 34.5 % (41.0-53.0); Hemoglobin 11.7 g/dL (13.5-16.0); Immature Granulocytes Auto 0.02 Thou/mm3 (0.00-0.00); Lymphocytes # (Auto) 1.7 Thou/mm3 (1.0-4.8); Lymphocytes % (Auto) 26 % (10-50); Mean Corpuscular HGB Conc 33.9 g/dl (31.0-37.0); Mean Corpuscular Hemoglobin 30.5 pg (25.0-35.0); Mean Corpuscular Volume 90 fL (80-100); Monocytes # (Auto) 0.6 Thou/mm3 (0.0-0.8); Monocytes % (Auto) 10 % (0-12); Neutrophils # (Auto) 3.4 Thou/mm3 (1.8-7.7); Neutrophils % (Auto) 53 % (37-80); Nucleated Red Blood Cell # 0.00 Thou/mm3 (0.00-0.00); Nucleated Red Blood Cell % 0 /100 WBC (0); Platelet Count 241 Thou/mm3 (140-440); RDW Standard Deviation 44.0 fL (35.1-43.9); Red Blood Count 3.83 Miln/mm3 (4.50-5.90); White Blood Count 6.3 Thou/mm3 (3.8-10.6)
[2025-04-16 11:20] LABS: INR 1.0 (0.9-1.3); Partial Thromboplastin Time 27.9 Seconds (22.0-36.0); Prothrombin Time 10.7 Seconds (9.0-12.2)
[2025-04-16 11:59] LABS: Alanine Aminotransferase 9 U/L (10-49); Albumin, Serum 4.6 gm/dL (3.5-5.0); Albumin/Globulin Ratio 1.5 (1.2-2.2); Alkaline Phosphatase 121 U/L (46-116); Anion Gap 11 (7-16); Aspartate Amino Transferase < 8 U/L (0-34); BUN/Creatinine Ratio 6 Ratio (12-20); Bilirubin,Total 0.4 mg/dL (0.3-1.2); Blood Urea Nitrogen 58 mg/dL (9-23); Calcium 9.8 mg/dL (8.3-10.6); Calcium (Corrected) 9.8 mg/dL (8.5-10.1); Carbon Dioxide 28.8 mMol/L (20.0-31.0); Chloride 100 mMol/L (98-107); Creatinine (Component) 9.4 mg/dL (0.6-1.3); Estimated Creatinine Clearance 7.3 mL/min (>60); Globulin 3.1 gm/dL (2.3-3.5); Glucose 87 mg/dL (74-106); Osmolality,Calculated 294 (275-295); Potassium 6.0 mMol/L (3.4-5.1); Sodium 140 mMol/L (136-145); Total Protein 7.7 gm/dL (5.7-8.2); eGFR 6 See Note
[2025-04-17 09:33] VITALS: BP 217/114; PULSE 84; RESP 18; TEMP 36.6; O2SAT 100; BMI 24.8
[2025-04-17 09:50] LABS: Potassium 5.2 mMol/L (3.4-5.1)
== END | disposition home or self-care (01) ==
LOC: S2EX 09:02
PROVIDERS: Anesthesiology; PCP Family Medicine; Referring Provider Surgery Vascular Surgery; Visit Provider Surgery Vascular Surgery
PROC: (CPT 36821; principal; 2025-04-17 12:00)
DX: N18.6 End stage renal disease (principal); Z53.9 Procedure and treatment not carried out, unspecified reason
CPT/HCPCS: 36821; 36415; 80053; 84132; 85025; 85610; 85730; A4649; J0131; J0690; J1100; J1644; J2250; J2405; J2704; J3010; J3490; J0665